=== PATIENT | male | born 1950 | race Caucasian/White ===

== ENCOUNTER → 2018-04-26 | Outpatient (CLI) | payer MEDICARE, MEDICAID ==
[~2018-04-26] MED LIST: AMIT100T2 PO; AMOX500C2 PO; AMT50T; BSP10T; BSP10T PO; HYDR-2854 PO; HYDR-757 PO; HYDR1TAB PO; IBP200T; ROPI1TAB PO; ROPI2TAB3 PO; SULF1TAB35 PO; SULF1TAB38 PO; TRAM-21 PO; TRAM50TA2 PO
--- NOTE | 2018-04-26 08:15 | Diagnostic Imaging Report ---
INDICATION: Right hip pain. COMPARISON: None. FINDINGS: Two views of the right hip demonstrate minimal degenerative changes. There is no fracture or dislocation. No osseous lesion. IMPRESSION: Minimal degenerative joint disease. Dictated by: Dictated on workstation # [id number]
== END ==
LOC: RAD 00:54
PROVIDERS: ATTEND Family Medicine
DX: M25.551 Pain in right hip (principal)
CPT/HCPCS: 73502

== ENCOUNTER → 2018-04-29 | Outpatient (CLI) | payer MEDICARE, MEDICAID ==
--- NOTE | 2018-04-29 08:53 | Diagnostic Imaging Report ---
PROCEDURE: MRI lumbar spine. TECHNIQUE: Multiplanar, multisequence MRI of the lumbar spine was performed without contrast. DATE: 04/29/2018. COMPARISON: MRI lumbar spine 07/06/2011. INDICATION: 67-year-old male, chronic low back pain. FINDINGS: The alignment of the lumbar spine is grossly unremarkable. There is no evidence of diffuse marrow infiltrating or replacing process. There is moderate disc height loss at L1-L2. There is severe disc height loss at L2-L3. There is moderate to severe disc height loss at L3-L4. There is severe disc height loss at L4-L5 and L5-S1. There are multilevel prominent endplate Modic degenerative related marrow changes. There are moderate to severe disc degenerative changes of the lower thoracic spine. There is no compression deformity. The visualized cord and conus medullaris is unremarkable and terminates at the L1-L2 level. There is congenital spinal stenosis relating to short pedicles. L1-L2: There is diffuse disc bulge. The facet joints and ligamentum flavum are unremarkable. There is moderate bilateral foraminal narrowing. There is prominence of the posterior epidural fat. There is severe spinal canal stenosis. L2-L3: There is mild diffuse disc bulge. The facet joints and ligamentum flavum are unremarkable. There is moderate right foraminal narrowing. There is mild spinal canal stenosis. L3-L4: There is diffuse disc bulge. There are mild bilateral facet degenerative changes with ligamentum flavum hypertrophy. There is moderate to severe bilateral foraminal narrowing. There is severe spinal canal stenosis. L4-L5: There is diffuse disc bulge. There are mild bilateral facet degenerative changes with ligamentum flavum hypertrophy. There is moderate to severe bilateral foraminal narrowing. There is severe spinal canal stenosis. L5-S1: There is diffuse disc bulge. There are moderate bilateral facet degenerative changes without prominent ligamentum flavum hypertrophy. There is severe bilateral foraminal narrowing. There is moderate spinal canal stenosis. IMPRESSION: 1. 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 2. Multilevel severe disc and facet degenerative changes of the lumbar spine with multilevel high-grade foraminal and spinal stenosis as detailed level by level above. Dictated by: Dictated on workstation # [id number]
== END ==
LOC: RAD 07:29
PROVIDERS: ATTEND Family Medicine
DX: M48.07 Spinal stenosis, lumbosacral region (principal); M51.27 Other intervertebral disc displacement, lumbosacral region; M51.37 Other intervertebral disc degeneration, lumbosacral region; M99.73 Connective tissue and disc stenosis of intervertebral foramina of lumbar region; M47.817 Spondylosis without myelopathy or radiculopathy, lumbosacral region
CPT/HCPCS: 72148

== ENCOUNTER → 2018-06-17 | Outpatient (CLI) | payer MEDICARE, MEDICAID ==
[~2018-06-17] MED LIST changes: +ACHD5005 PO; +CEPH500C PO; +Trimethoprim/Sulfamethoxazole PO
--- NOTE | 2018-06-17 16:52 | Diagnostic Imaging Report ---
PROCEDURE: US left lower extremity venous. TECHNIQUE: Multiple real-time grayscale images were obtained over the left lower extremity in various projections. Additional duplex Doppler and color Doppler images were also obtained. DATE: June 17, 2018. INDICATION: 67-year-old male, left foot pain and redness. COMPARISON: None. FINDINGS: The left common femoral vein, left superficial femoral vein, left popliteal vein are all compressible with normal flow and response to augmentation. The left posterior tibial and peroneal veins are patent. IMPRESSION: 1. Negative for left lower extremity deep venous thrombosis. Dictated by: Dictated on workstation # [id number]
== END ==
LOC: RAD 16:22
PROVIDERS: ATTEND Nurse Practitioner Family
DX: L03.116 Cellulitis of left lower limb (principal)

== ENCOUNTER 2018-06-20 03:07 | Inpatient (IN) | payer MEDICARE, MEDICAID ==
[~2018-06-20] VITALS: Ht 167.6 cm; Wt 78.2 kg
[~2018-06-20 03:07] MED LIST changes: -ACHD5005 PO; -CEPH500C PO; -Trimethoprim/Sulfamethoxazole PO
--- OUTSIDE RECORDS SUMMARY | 2018-06-20 03:13 | XMS REPORT ---
Author Author ANSELMO BEDOLLA Organization [employer] Address Unknown Phone Unavailable Care Team Providers Care Accounts Payable Professional Name Role Phone ANSELMO BEDOLLA CP Unavailable Allergies No Known Allergies Problems Problem Type Condition Code Onset Dates Condition Status Problem Esophageal reflux 530.81 Active Problem Allergic rhinitis, cause unspecified 477.9 Active Problem Anxiety state, unspecified 300.00 Active Problem Cellulitis and abscess of unspecified site 682.9 Active Problem Herpes zoster without mention of complication 053.9 Active Problem Hidradenitis 705.83 Active Problem Insomnia, unspecified 780.52 Active Problem Restless legs syndrome [RLS] 333.94 Active Medications Medication Code System Code Instructions Start Date End Date Status Dosage Amitriptyline HCl [facility] 67222527569 150MG TAKE ONE TABLET BY MOUTH AT BEDTIME; TAKE WITH 100 MG TABLET BusPIRone HCl [facility] 71957602608 30MG TAKE ONE TABLET BY MOUTH TWICE DAILY Results No Known Results Summary Purpose [employer] Submission
--- OUTSIDE RECORDS SUMMARY | 2018-06-20 03:14 | XMS REPORT ---
Author Author BLAINE BEGMU Organization [employer] Address Unknown Phone Unavailable Care Team Providers Care Public Health Epidemiologist Name Role Phone BLAINE BEGUM CP Unavailable Allergies, Adverse Reactions, Alerts Substance Reaction Event Type N.K.D.A. Info Not Available Non Drug Allergy Problems Problem Type Condition Code Onset Dates Condition Status Problem Esophageal reflux 530.81 Active Assessment Prepatellar bursitis of right knee M70.41 Active Problem Allergic rhinitis, cause unspecified 477.9 Active Problem Anxiety state, unspecified 300.00 Active Problem Cellulitis and abscess of unspecified site 682.9 Active Problem Herpes zoster without mention of complication 053.9 Active Problem Hidradenitis 705.83 Active Problem Insomnia, unspecified 780.52 Active Problem Restless legs syndrome [RLS] 333.94 Active Medications Medication Code System Code Instructions Start Date End Date Status Dosage BusPIRone HCl [facility] 95490287808 30MG 2 times a day 1 tablet Diclofenac Sodium [facility] [address]-60 1 % Transdermal 2 times a day June 02, 2016 Jun 12, 2016 as directed Amitriptyline HCl [facility] 98184451394 100MG Once a day 1 tablet Ropinirole HCl [facility] 52192657618 2MG Once a day 1 tablet Amitriptyline HCl [facility] 28904105271 150MG Once a day 1 tablet Procedures Procedure Coding System Code Date X-RAY EXAM OF KNEE, 3 CPT-4 81787 June 02, 2016 Office Visit, Est Pt., Level 3 CPT-4 55173 June 02, 2016 Vital Signs Date/Time: June 02, 2016 Cardiac Monitoring Heart Rate 100 bpm Weight 168 lbs Height 66 in Blood Pressure Diastolic 90 mmHg Blood Pressure Systolic 134 mmHg Results No Known Results Summary Purpose [employer] Submission
--- OUTSIDE RECORDS SUMMARY | 2018-06-20 03:14 | XMS REPORT ---
Author Author ANSELMO BEDOLLA [facility] Address [address] [place] [address] Care Team Providers Care Carpenter Assistant Name Role Phone ANSELMO BEDOLLA Unavailable PROBLEMS Type Condition ICD9-CM Code [id number] Code Onset Dates Condition Status SNOMED Code Problem Hidradenitis 705.83 Active 11161416 Problem Esophageal reflux 530.81 Active 625730927 Problem Cellulitis and abscess of unspecified site 682.9 Active 305205370 Problem Allergic rhinitis, cause unspecified 477.9 Active 24720796 Problem Restless legs syndrome [RLS] 333.94 Active 09766202 Problem Herpes zoster without mention of complication 053.9 Active 529748337 Problem Anxiety state, unspecified 300.00 Active 615352444 Problem Insomnia, unspecified 780.52 Active 035954536 ALLERGIES Unknown Allergies SOCIAL HISTORY No smoking Hx information available PLAN OF CARE VITAL SIGNS MEDICATIONS Unknown Medications RESULTS No Results PROCEDURES No Known procedures IMMUNIZATIONS No Known Immunizations
--- OUTSIDE RECORDS SUMMARY | 2018-06-20 03:14 | XMS REPORT ---
Author Author EDGARD CALLOWAY Organization [employer] Address Unknown Phone Unavailable Care Team Providers Care Reptile Farmer Name Role Phone EDGARD CALLOWAY CP Unavailable Allergies, Adverse Reactions, Alerts Substance Reaction Event Type N.K.D.A. Info Not Available Non Drug Allergy Problems Problem Type Condition Code Onset Dates Condition Status Problem Esophageal reflux 530.81 Active Assessment Abscess L02.91 Active Problem Allergic rhinitis, cause unspecified 477.9 Active Problem Anxiety state, unspecified 300.00 Active Problem Cellulitis and abscess of unspecified site 682.9 Active Problem Herpes zoster without mention of complication 053.9 Active Problem Hidradenitis 705.83 Active Problem Insomnia, unspecified 780.52 Active Problem Restless legs syndrome [RLS] 333.94 Active Medications Medication Code System Code Instructions Start Date End Date Status Dosage Amitriptyline HCl [facility] 52355966216 100MG TAKE ONE TABLET BY MOUTH AT BEDTIME; TAKE WITH 150 MG TABLET Ropinirole HCl [facility] 36700172060 2MG TAKE ONE TABLET BY MOUTH ONCE DAILY Requip [facility] [address]-08 2 mg Dec 28, 2014 take 1 tablet by Oral route 1 time per day BusPIRone HCl [facility] 49229239900 30MG TAKE ONE TABLET BY MOUTH TWICE DAILY Bactrim DS [facility] [address]-77 800-160 MG Orally Twice a day Nov 11, 2015 Nov 18, 2015 1 tablet Procedures Procedure Coding System Code Date [facility] VISIT ESTABLISHED PATIENT CPT-4 G0467 Nov 11, 2015 Office Visit, Est Pt., Level 1 CPT-4 65972 Nov 11, 2015 DRAINAGE OF SKIN ABSCESS CPT-4 03909 Nov 11, 2015 Vital Signs Date/Time: Nov 11, 2015 Temperature 98.0 F Weight 170.7 lbs Height 66 in BMI 27.55 Index Blood Pressure Diastolic 76 mmHg Blood Pressure Systolic 124 mmHg Cardiac Monitoring Heart Rate 104 bpm Results No Known Results Summary Purpose [employer] Submission
--- OUTSIDE RECORDS SUMMARY | 2018-06-20 03:14 | XMS REPORT ---
Author Author ANSELMO BEDOLLA Organization [employer] Address Unknown Phone Unavailable Care Team Providers Care Director Of Corporate Sales Name Role Phone ANSELMO BEDOLLA CP Unavailable [...] Restless legs syndrome [RLS] 333.94 Active Medications No Known Medications Results No Known Results Summary Purpose [employer] Submission
--- OUTSIDE RECORDS SUMMARY | 2018-06-20 03:14 | XMS REPORT ---
Author ANSELMO Kenney Organization [employer] Address Unknown Phone Unavailable Care Team Providers Care Narcotics And Vice Detective Name Role Phone ANSELMO BEDOLLA CP Unavailable [...]
--- OUTSIDE RECORDS SUMMARY | 2018-06-20 03:14 | XMS REPORT ---
Author Author ANSELMO BEDOLLA Organization [employer] Address Unknown Phone Unavailable Care Team Providers Care Counselor/Art Therapist Name Role Phone ANSELMO BEDOLLA CP Unavailable Allergies No Known Allergies Problems Problem Type Condition Code Onset Dates Condition Status Problem Esophageal reflux 530.81 Active Assessment Other bursal cyst of elbow, left M71.322 Active Problem Allergic rhinitis, cause unspecified 477.9 Active Problem Anxiety state, unspecified 300.00 Active Problem Cellulitis and abscess of unspecified site 682.9 Active Problem Herpes zoster without mention of complication 053.9 Active Problem Hidradenitis 705.83 Active Problem Insomnia, unspecified 780.52 Active Problem Restless legs syndrome [RLS] 333.94 Active Medications No Known Medications Procedures Procedure Coding System Code Date [facility] VISIT ESTABLISHED PATIENT CPT-4 G0467 Dec 30, 2015 Office Visit, Est Pt., Level 2 CPT-4 63945 Dec 30, 2015 ASPIRATE/INJ GANGLION CYST CPT-4 52469 Dec 30, 2015 LAB NOT BILLED BY [facility] CPT-4 NOBLL Dec 30, 2015 Results No Known Results Summary Purpose [employer] Submission
--- OUTSIDE RECORDS SUMMARY | 2018-06-20 03:14 | XMS REPORT ---
Author Author ANSELMO BEDOLLA Organization [employer] Address Unknown Phone Unavailable Care Team Providers Care Speech Language Pathologist Name Role Phone ANSELMO BEDOLLA CP Unavailable [...] Date End Date Status Dosage BusPIRone HCl [facility] 29886394042 30MG TAKE ONE TABLET BY MOUTH TWICE DAILY Amitriptyline HCl [facility] 06748774478 150MG TAKE ONE TABLET BY MOUTH AT BEDTIME; TAKE WITH 100 MG TABLET Amitriptyline HCl [place] 76225894317 100MG TAKE ONE TABLET BY MOUTH AT BEDTIME; TAKE WITH 150 MG TABLET Ropinirole HCl ND 53851182616 2MG TAKE ONE TABLET BY MOUTH ONCE DAILY Results No Known Results Summary Purpose [employer] Submission
--- OUTSIDE RECORDS SUMMARY | 2018-06-20 03:14 | XMS REPORT ---
Author Author ANSELMO BEDOLLA Organization [employer] Address Unknown Phone Unavailable Care Team Providers Care Gas Line Installer Name Role Phone ANSELMO BEDOLLA CP Unavailable [...] Date End Date Status Dosage Amitriptyline HCl [facility] 19645843033 100MG Once a day 1 tablet Amitriptyline HCl [facility] 80780092925 150MG Once a day 1 tablet BusPIRone HCl [facility] 90817641172 30MG 2 times a day 1 tablet Ropinirole HCl [facility] 99453355102 2MG Once a day 1 tablet Results No Known Results Summary Purpose [employer] Submission
--- OUTSIDE RECORDS SUMMARY | 2018-06-20 03:18 | XMS REPORT | Continuity of Care Document ---
Author Author [facility] Address Unknown Phone Unavailable Allergies Active Description Code Type Severity Reaction Onset Reported/Identified Relationship to Patient Clinical Status Yes No Known Drug Allergies [id number] Drug Allergy Unknown N/A 10/18/2010 Yes SWEET POTATO Food Allergy 04/30/2011 Yes SWEET POTATO Food Allergy N/ A N/A 04/30/2011 Medications There is no data. Problems Date Dx Coded Attending Type Code Diagnosis Diagnosed By 06/19/2008 SHIREEN GREGORY DO 300.02 GENERALIZED ANXIETY DISORDER 06/19/2008 SHIREEN GREGORY DO 307.47 SI DYSSOMNIA NOS 06/19/2008 AZALEA ARRIOLA DO 300.02 GENERALIZED ANXIETY DISORDER 06/19/2008 AZALEA ARRIOLA DO 307.47 SI DYSSOMNIA NOS 06/19/2008 300.02 GENERALIZED ANXIETY DISORDER 06/19/2008 307.47 SI DYSSOMNIA NOS 06/19/2008 300.02 GENERALIZED ANXIETY DISORDER 06/19/2008 307.47 SI DYSSOMNIA NOS 06/19/2008 AZALEA ARRIOLA DO 300.02 GENERALIZED ANXIETY DISORDER 06/19/2008 AZALEA ARRIOLA DO 307.47 SI DYSSOMNIA NOS 06/19/2008 ANSELMO BEDOLLA APRN 300.02 GENERALIZED ANXIETY DISORDER 06/19/2008 ANSELMO BEDOLLA APRN 307.47 SI DYSSOMNIA NOS 06/19/2008 AZALEA ARRIOLA DO 300.02 GENERALIZED ANXIETY DISORDER 06/19/2008 AZALEA ARRIOLA DO 307.47 SI DYSSOMNIA NOS 06/19/2008 ANSELMO BEDOLLA APRN 300.02 GENERALIZED ANXIETY DISORDER 06/19/2008 ANSELMO BEDOLLA APRN 307.47 SI DYSSOMNIA NOS 06/19/2008 ANSELMO BEDOLLA APRN 300.02 GENERALIZED ANXIETY DISORDER 06/19/2008 ANSELMO BEDOLLA APRN 307.47 SI DYSSOMNIA NOS 06/19/2008 ANSELMO BEDOLLA APRN 300.02 GENERALIZED ANXIETY DISORDER 06/19/2008 ANSELMO BEDOLLA APRN 307.47 SI DYSSOMNIA NOS 06/19/2008 BILLY BUITRAGO MD 300.02 GENERALIZED ANXIETY DISORDER 06/19/2008 BILLY BUITRAGO MD 307.47 SI DYSSOMNIA NOS 06/19/2008 ANSELMO BEDOLLA APRN 300.02 GENERALIZED ANXIETY DISORDER 06/19/2008 ANSELMO BEDOLLA APRN 307.47 SI DYSSOMNIA NOS 06/19/2008 TYLER PICHARDO APRN S 300.02 GENERALIZED ANXIETY DISORDER 06/19/2008 TYLER PICHARDO APRN S 307.47 SI DYSSOMNIA NOS 06/19/2008 ARRIOLA DO AZALEA K 300.02 GENERALIZED ANXIETY DISORDER 06/19/2008 ARRIOLA DO, AZALEA K 307.47 SI DYSSOMNIA NOS 06/19/2008 ARRIOLA DO, AZALEA K 300.02 GENERALIZED ANXIETY DISORDER 06/19/2008 ARRIOLA DO, AZALEA K 307.47 SI DYSSOMNIA NOS 06/19/2008 ARRIOLA DO AZALEA K 300.02 GENERALIZED ANXIETY DISORDER 06/19/2008 ARRIOLA DO, AZALEA K 307.47 SI DYSSOMNIA NOS 06/19/2008 BREEZY OAKES APRN R 300.02 GENERALIZED ANXIETY DISORDER 06/19/2008 SANDRA OAKES APRNRICIA R 307.47 SI DYSSOMNIA NOS 06/19/2008 ANSELMO BEDOLLA APRN 300.02 GENERALIZED ANXIETY DISORDER 06/19/2008 ANSELMO BEDOLLA APRN 307.47 SI DYSSOMNIA NOS 06/19/2008 ANSELMO BEDOLLA APRN 300.02 GENERALIZED ANXIETY DISORDER 06/19/2008 ANSELMO BEDOLLA APRN 307.47 SI DYSSOMNIA NOS 07/17/2008 SHIREEN GREGORY DO 873.8 WOUND OPEN HEAD/NECK 07/17/2008 EDITH ARRIOLA DOA K 873.8 WOUND OPEN HEAD/NECK 07/17/2008 873.8 WOUND OPEN HEAD/NECK 07/17/2008 873.8 WOUND OPEN HEAD/NECK 07/17/2008 AZALEA ARRIOLA DO K 873.8 WOUND OPEN HEAD/NECK 07/17/2008 ANSELMO BEDOLLA APRN 873.8 WOUND OPEN HEAD/NECK 07/17/2008 AZALEA ARRIOLA DO K 873.8 WOUND OPEN HEAD/NECK 07/17/2008 ANSELMO BEDOLLA APRN T 873.8 WOUND OPEN HEAD/NECK 07/17/2008 ANSELMO BEDOLLA APRN T 873.8 WOUND OPEN HEAD/NECK 07/17/2008 ANSELMO BEDOLLA APRN T 873.8 WOUND OPEN HEAD/NECK 07/17/2008 BILLY BUITRAGO MD 873.8 WOUND OPEN HEAD/NECK 07/17/2008 ANSELMO BEDOLLA APRN T 873.8 WOUND OPEN HEAD/NECK 07/17/2008 TYLER PICHARDO APRN S 873.8 WOUND OPEN HEAD/NECK 07/17/2008 ARRIOLA DO, AZALEA K 873.8 WOUND OPEN HEAD/NECK 07/17/2008 ARRIOLA DO, AZALEA K 873.8 WOUND OPEN HEAD/NECK 07/17/2008 ARRIOLA DO, AZALEA K 873.8 WOUND OPEN HEAD/NECK 07/17/2008 BREEZY OAKES APRN 873.8 WOUND OPEN HEAD/NECK 07/17/2008 ANSELMO BEDOLLA APRN T 873.8 WOUND OPEN HEAD/NECK 07/17/2008 ANSELMO BEDOLLA APRN T 873.8 WOUND OPEN HEAD/NECK 08/20/2008 SHIREEN GREGORY DO 303.90 SA ALCOHOL DEPENDENCE 08/20/2008 ARRIOLA DO, AZALEA K 303.90 SA ALCOHOL DEPENDENCE 08/20/2008 303.90 SA ALCOHOL DEPENDENCE 08/20/2008 303.90 SA ALCOHOL DEPENDENCE 08/20/2008 ARRIOLA DO, AZALEA K 303.90 SA ALCOHOL DEPENDENCE 08/20/2008 ANSELMO BEDOLLA APRN T 303.90 SA ALCOHOL DEPENDENCE 08/20/2008 ARRIOLA DO AZALEA K 303.90 SA ALCOHOL DEPENDENCE 08/20/2008 ANSELMO BEDOLLA APRN 303.90 SA ALCOHOL DEPENDENCE 08/20/2008 ANSELMO BEDOLLA APRN 303.90 SA ALCOHOL DEPENDENCE 08/20/2008 ANSELMO BEDOLLA APRN 303.90 SA ALCOHOL DEPENDENCE 08/20/2008 BILLY BUITRAGO MD 303.90 SA ALCOHOL DEPENDENCE 08/20/2008 ANSELMO BEDOLLA APRN 303.90 SA ALCOHOL DEPENDENCE 08/20/2008 TYLER PICHARDO APRN S 303.90 SA ALCOHOL DEPENDENCE 08/20/2008 ARRIOLA DO, AZALEA K 303.90 SA ALCOHOL DEPENDENCE 08/20/2008 ARRIOLA DO, AZALEA K 303.90 SA ALCOHOL DEPENDENCE 08/20/2008 ARRIOLA DO, AZALEA K 303.90 SA ALCOHOL DEPENDENCE 08/20/2008 VIOLETTE SCHAEFFER BREEZY R 303.90 SA ALCOHOL DEPENDENCE 08/20/2008 ANSELMO BEDOLLA APRN 303.90 SA ALCOHOL DEPENDENCE 08/20/2008 ANSELMO BEDOLLA APRN 303.90 SA ALCOHOL DEPENDENCE 11/26/2008 SHIREEN GREGORY DO 719.47 PAIN IN JOINT INVOLVING ANKLE AND FOOT 11/26/2008 SHIREEN GREGORY DO F 724.3 SCIATICA 11/26/2008 FLAKO DOEDITHA K 719.47 PAIN IN JOINT INVOLVING ANKLE AND FOOT 11/26/2008 ARRIOLA DO AZALEA K 724.3 SCIATICA 11/26/2008 719.47 PAIN IN JOINT INVOLVING ANKLE AND FOOT 11/26/2008 724.3 SCIATICA 11/26/2008 719.47 PAIN IN JOINT INVOLVING ANKLE AND FOOT 11/26/2008 724.3 SCIATICA 11/26/2008 FLAKO DOEDITHA K 719.47 PAIN IN JOINT INVOLVING ANKLE AND FOOT 11/26/2008 EDITH ARRIOLA DOA K 724.3 SCIATICA 11/26/2008 ANSELMO BEDOLLA APRN 719.47 PAIN IN JOINT INVOLVING ANKLE AND FOOT 11/26/2008 ANSELMO BEDOLLA APRN 724.3 SCIATICA 11/26/2008 EDITH ARRIOLA DOA K 719.47 PAIN IN JOINT INVOLVING ANKLE AND FOOT 11/26/2008 EDITH ARRIOLA DOA K 724.3 SCIATICA 11/26/2008 ANSELMO BEDOLLA APRN 719.47 PAIN IN JOINT INVOLVING ANKLE AND FOOT 11/26/2008 ANSELMO BEDOLLA APRN 724.3 SCIATICA 11/26/2008 ANSELMO BEDOLLA APRN 719.47 PAIN IN JOINT INVOLVING ANKLE AND FOOT 11/26/2008 ANSELMO BEDOLLA APRN 724.3 SCIATICA 11/26/2008 ANSELMO BEDOLLA APRN 719.47 PAIN IN JOINT INVOLVING ANKLE AND FOOT 11/26/2008 ANSELMO BEDOLLA APRN 724.3 SCIATICA 11/26/2008 BILLY BUITRAGO MD 719.47 PAIN IN JOINT INVOLVING ANKLE AND FOOT 11/26/2008 BILLY BUITRAGO MD 724.3 SCIATICA 11/26/2008 ANSELMO BEDOLLA APRN 719.47 PAIN IN JOINT INVOLVING ANKLE AND FOOT 11/26/2008 ANSELMO BEDOLLA APRN 724.3 SCIATICA 11/26/2008 TYLER PICHARDO APRN S 719.47 PAIN IN JOINT INVOLVING ANKLE AND FOOT 11/26/2008 TYLER PICHARDO APRN S 724.3 SCIATICA 11/26/2008 ARRIOLA AZALEA DENNY K 719.47 PAIN IN JOINT INVOLVING ANKLE AND FOOT 11/26/2008 ARRIOLA DOAZALEA K 724.3 SCIATICA 11/26/2008 ARRIOLA DOEDITHA K 719.47 PAIN IN JOINT INVOLVING ANKLE AND FOOT 11/26/2008 ARRIOLA DOEDITHA K 724.3 SCIATICA 11/26/2008 ARRIOLA DOEDITHA K 719.47 PAIN IN JOINT INVOLVING ANKLE AND FOOT 11/26/2008 AZALEA ARRIOLA DO K 724.3 SCIATICA 11/26/2008 BREEZY OAKES APRN R 719.47 PAIN IN JOINT INVOLVING ANKLE AND FOOT 11/26/2008 BREEZY OAKES APRN R 724.3 SCIATICA 11/26/2008 ANSELMO BEDOLLA APRN 719.47 PAIN IN JOINT INVOLVING ANKLE AND FOOT 11/26/2008 ANSELMO BEDOLLA APRN 724.3 SCIATICA 11/26/2008 ANSELMO BEDOLLA APRN 719.47 PAIN IN JOINT INVOLVING ANKLE AND FOOT 11/26/2008 ANSELMO BEDOLLA APRN 724.3 SCIATICA 12/11/2008 SHIREEN GREGORY DO 316 PF PSYCHIC FACTORS MED COND 12/11/2008 SHIREEN GREGORY DO 724.2 LUMBAGO 12/11/2008 SHIREEN GREGORY DO 729.2 NEURALGIA NEURITIS AND RADICULITIS UNSPECIFIED 12/11/2008 AZALEA ARRIOLA DO K 316 PF PSYCHIC FACTORS MED COND 12/11/2008 AZALEA ARRIOLA DO K 724.2 LUMBAGO 12/11/2008 AZALEA ARRIOLA DO K 729.2 NEURALGIA NEURITIS AND RADICULITIS UNSPECIFIED 12/11/2008 316 PF PSYCHIC FACTORS MED COND 12/11/2008 724.2 LUMBAGO 12/11/2008 729.2 NEURALGIA NEURITIS AND RADICULITIS UNSPECIFIED 12/11/2008 316 PF PSYCHIC FACTORS MED COND 12/11/2008 724.2 LUMBAGO 12/11/2008 729.2 NEURALGIA NEURITIS AND RADICULITIS UNSPECIFIED 12/11/2008 ARRIOLA DO, AZALEA K 316 PF PSYCHIC FACTORS MED COND 12/11/2008 FLAKO DENNY AZALEA K 724.2 LUMBAGO 12/11/2008 ARRIOLA DO, AZALEA K 729.2 NEURALGIA NEURITIS AND RADICULITIS UNSPECIFIED 12/11/2008 ANSELMO BEDOLLA APRN 316 PF PSYCHIC FACTORS MED COND 12/11/2008 ANSELMO BEDOLLA APRN 724.2 LUMBAGO 12/11/2008 ANSELMO BEDOLLA APRN 729.2 NEURALGIA NEURITIS AND RADICULITIS UNSPECIFIED 12/11/2008 ARRIOLA DO AZALEA K 316 PF PSYCHIC FACTORS MED COND 12/11/2008 FLAKO DENNYEDITHA K 724.2 LUMBAGO 12/11/2008 FLAKO DENNYEDITHA K 729.2 NEURALGIA NEURITIS AND RADICULITIS UNSPECIFIED 12/11/2008 ANSELMO BEDOLLA APRN 316 PF PSYCHIC FACTORS MED COND 12/11/2008 ANSELMO BEDOLLA APRN 724.2 LUMBAGO 12/11/2008 ANSELMO BEDOLLA APRN 729.2 NEURALGIA NEURITIS AND RADICULITIS UNSPECIFIED 12/11/2008 ANSELMO BEDOLLA APRN 316 PF PSYCHIC FACTORS MED COND 12/11/2008 ANSELMO BEDOLLA APRN 724.2 LUMBAGO 12/11/2008 ANSELMO BEDOLLA APRN 729.2 NEURALGIA NEURITIS AND RADICULITIS UNSPECIFIED 12/11/2008 ANSELMO BEDOLLA APRN 316 PF PSYCHIC FACTORS MED COND 12/11/2008 ANSELMO BEDOLLA APRN 724.2 LUMBAGO 12/11/2008 ANSELMO BEDOLLA APRN 729.2 NEURALGIA NEURITIS AND RADICULITIS UNSPECIFIED 12/11/2008 BILLY BUITRAGO MD 316 PF PSYCHIC FACTORS MED COND 12/11/2008 BILLY BUITRAGO MD 724.2 LUMBAGO 12/11/2008 BILLY BUITRAGO MD 729.2 NEURALGIA NEURITIS AND RADICULITIS UNSPECIFIED 12/11/2008 ANSELMO BEDOLLA APRN 316 PF PSYCHIC FACTORS MED COND 12/11/2008 ANSELMO BEDOLLA APRN 724.2 LUMBAGO 12/11/2008 ANSELMO BEDOLLA APRN 729.2 NEURALGIA NEURITIS AND RADICULITIS UNSPECIFIED 12/11/2008 TYLER PICHARDO APRN S 316 PF PSYCHIC FACTORS MED COND 12/11/2008 TYLER PICHARDO APRN S 724.2 LUMBAGO 12/11/2008 TYLER PICHARDO APRN S 729.2 NEURALGIA NEURITIS AND RADICULITIS UNSPECIFIED 12/11/2008 ARRIOLA DO AZALEA K 316 PF PSYCHIC FACTORS MED COND 12/11/2008 ARRIOLA DO, AZALEA K 724.2 LUMBAGO 12/11/2008 ARRIOLA DO, AZALEA K 729.2 NEURALGIA NEURITIS AND RADICULITIS UNSPECIFIED 12/11/2008 ARRIOLA DO AZALEA K 316 PF PSYCHIC FACTORS MED COND 12/11/2008 ARRIOLA DO AZALEA K 724.2 LUMBAGO 12/11/2008 ARRIOLA DO, AZALEA K 729.2 NEURALGIA NEURITIS AND RADICULITIS UNSPECIFIED 12/11/2008 FLAKO DENNY AZALEA K 316 PF PSYCHIC FACTORS MED COND 12/11/2008 ARRIOLA DO AZALEA K 724.2 LUMBAGO 12/11/2008 ARRIOLA DO, AZALEA K 729.2 NEURALGIA NEURITIS AND RADICULITIS UNSPECIFIED 12/11/2008 BREEZY OAKES APRN R 316 PF PSYCHIC FACTORS MED COND 12/11/2008 BREEZY OAKES APRN R 724.2 LUMBAGO 12/11/2008 BREEZY OAKES APRN R 729.2 NEURALGIA NEURITIS AND RADICULITIS UNSPECIFIED 12/11/2008 ANSELMO BEDOLLA APRN 316 PF PSYCHIC FACTORS MED COND 12/11/2008 ANSELMO BEDOLLA APRN 724.2 LUMBAGO 12/11/2008 ANSELMO BEDOLLA APRN 729.2 NEURALGIA NEURITIS AND RADICULITIS UNSPECIFIED 12/11/2008 ANSELMO BEDOLLA APRN 316 PF PSYCHIC FACTORS MED COND 12/11/2008 ANSELMO BEDOLLA APRN 724.2 LUMBAGO 12/11/2008 ANSELMO BEDOLLA APRN 729.2 NEURALGIA NEURITIS AND RADICULITIS UNSPECIFIED 12/28/2008 SHIREEN GREGORY DO 715.27 OSTEOARTHROSIS LOCALIZED SECONDARY INVOLVING ANKLE AND FOOT 12/28/2008 SHIREEN GREGORY DO 735.2 HALLUX RIGIDUS 12/28/2008 AZALEA ARRIOLA DO K 715.27 OSTEOARTHROSIS LOCALIZED SECONDARY INVOLVING ANKLE AND FOOT 12/28/2008 ARRIOLA EDITH DENNYA K 735.2 HALLUX RIGIDUS 12/28/2008 715.27 OSTEOARTHROSIS LOCALIZED SECONDARY INVOLVING ANKLE AND FOOT 12/28/2008 735.2 HALLUX RIGIDUS 12/28/2008 715.27 OSTEOARTHROSIS LOCALIZED SECONDARY INVOLVING ANKLE AND FOOT 12/28/2008 735.2 HALLUX RIGIDUS 12/28/2008 AZALEA ARRIOLA DO K 715.27 OSTEOARTHROSIS LOCALIZED SECONDARY INVOLVING ANKLE AND FOOT 12/28/2008 EDITH ARRIOLA DOA K 735.2 HALLUX RIGIDUS 12/28/2008 ANSELMO BEDOLLA APRN 715.27 OSTEOARTHROSIS LOCALIZED SECONDARY INVOLVING ANKLE AND FOOT 12/28/2008 ANSELMO BEDOLLA APRN 735.2 HALLUX RIGIDUS 12/28/2008 AZALEA ARRIOLA DO 715.27 OSTEOARTHROSIS LOCALIZED SECONDARY INVOLVING ANKLE AND FOOT 12/28/2008 AZALEA ARRIOLA DO 735.2 HALLUX RIGIDUS 12/28/2008 ANSELMO BEDOLLA APRN 715.27 OSTEOARTHROSIS LOCALIZED SECONDARY INVOLVING ANKLE AND FOOT 12/28/2008 ANSELMO BEDOLLA APRN 735.2 HALLUX RIGIDUS 12/28/2008 ANSELMO BEDOLLA APRN 715.27 OSTEOARTHROSIS LOCALIZED SECONDARY INVOLVING ANKLE AND FOOT 12/28/2008 ANSELMO BEDOLLA APRN 735.2 HALLUX RIGIDUS 12/28/2008 ANSELMO BEDOLLA APRN 715.27 OSTEOARTHROSIS LOCALIZED SECONDARY INVOLVING ANKLE AND FOOT 12/28/2008 ANSELMO BEDOLLA APRN 735.2 HALLUX RIGIDUS 12/28/2008 BILLY BUITRAGO MD 715.27 OSTEOARTHROSIS LOCALIZED SECONDARY INVOLVING ANKLE AND FOOT 12/28/2008 BILLY BUITRAGO MD 735.2 HALLUX RIGIDUS 12/28/2008 ANSELMO BEDOLLA APRN 715.27 OSTEOARTHROSIS LOCALIZED SECONDARY INVOLVING ANKLE AND FOOT 12/28/2008 ANSELMO BEDOLLA APRN 735.2 HALLUX RIGIDUS 12/28/2008 TYLER PICHARDO APRN 715.27 OSTEOARTHROSIS LOCALIZED SECONDARY INVOLVING ANKLE AND FOOT 12/28/2008 TYLER PICHARDO APRN S 735.2 HALLUX RIGIDUS 12/28/2008 ARRIOLA DO AZALEA K 715.27 OSTEOARTHROSIS LOCALIZED SECONDARY INVOLVING ANKLE AND FOOT 12/28/2008 ARRIOLA DO, AZALEA K 735.2 HALLUX RIGIDUS 12/28/2008 ARRIOLA DO, AZALEA K 715.27 OSTEOARTHROSIS LOCALIZED SECONDARY INVOLVING ANKLE AND FOOT 12/28/2008 ARRIOLA DO, AZALEA K 735.2 HALLUX RIGIDUS 12/28/2008 ARRIOLA DO, AZALEA K 715.27 OSTEOARTHROSIS LOCALIZED SECONDARY INVOLVING ANKLE AND FOOT 12/28/2008 ARRIOLA DO, AZALEA K 735.2 HALLUX RIGIDUS 12/28/2008 BREEZY OAKES APRN R 715.27 OSTEOARTHROSIS LOCALIZED SECONDARY INVOLVING ANKLE AND FOOT 12/28/2008 BREEZY OAKES APRN R 735.2 HALLUX RIGIDUS 12/28/2008 ANSELMO BEDOLLA APRN 715.27 OSTEOARTHROSIS LOCALIZED SECONDARY INVOLVING ANKLE AND FOOT 12/28/2008 ANSELMO BEDOLLA APRN 735.2 HALLUX RIGIDUS 12/28/2008 ANSELMO BEDOLLA APRN 715.27 OSTEOARTHROSIS LOCALIZED SECONDARY INVOLVING ANKLE AND FOOT 12/28/2008 ANSELMO BEDOLLA APRN 735.2 HALLUX RIGIDUS 06/20/2009 SHIREEN GREGORY DO 319 UNSPECIFIED MENTAL RETARDATION 06/20/2009 AZALEA ARRIOLA DO K 319 UNSPECIFIED MENTAL RETARDATION 06/20/2009 319 UNSPECIFIED MENTAL RETARDATION 06/20/2009 319 UNSPECIFIED MENTAL RETARDATION 06/20/2009 AZALEA ARRIOLA DO K 319 UNSPECIFIED MENTAL RETARDATION 06/20/2009 ANSELMO BEDOLLA APRN 319 UNSPECIFIED MENTAL RETARDATION 06/20/2009 AZALEA ARRIOLA DO K 319 UNSPECIFIED MENTAL RETARDATION 06/20/2009 ANSELMO BEDOLLA APRN 319 UNSPECIFIED MENTAL RETARDATION 06/20/2009 ANSELMO BEDOLLA APRN 319 UNSPECIFIED MENTAL RETARDATION 06/20/2009 ANSELMO BEDOLLA APRN 319 UNSPECIFIED MENTAL RETARDATION 06/20/2009 IFTIKHAR HERNDON, BILLY Hoang 319 UNSPECIFIED MENTAL RETARDATION 06/20/2009 ANSELMO BEDOLLA APRN 319 UNSPECIFIED MENTAL RETARDATION 06/20/2009 TYLER PICHARDO APRN 319 UNSPECIFIED MENTAL RETARDATION 06/20/2009 EDITH ARRIOLA DOA K 319 UNSPECIFIED MENTAL RETARDATION 06/20/2009 AZALEA ARRIOLA DO 319 UNSPECIFIED MENTAL RETARDATION 06/20/2009 AZALEA ARRIOLA DO K 319 UNSPECIFIED MENTAL RETARDATION 06/20/2009 OAKES BREEZY SCHAEFFER 319 UNSPECIFIED MENTAL RETARDATION 06/20/2009 ANSELMO BEDOLLA APRN 319 UNSPECIFIED MENTAL RETARDATION 06/20/2009 ANSELMO BEDOLLA APRN 319 UNSPECIFIED MENTAL RETARDATION 10/18/2010 Ot 521.00 10/18/2010 Ot 525.9 06/30/2011 SHIREEN GREGORY DO 381.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 TUBE 06/30/2011 SHIREEN GREGORY DO 715.90 OSTEOARTHROSIS UNSPECIFIED WHETHER GENERALIZED OR LOCALIZED INVOLVING UNSPECIFIED SITE 06/30/2011 SHIREEN GREGORY DO 724.4 THORACIC OR LUMBOSACRAL NEURITIS OR RADICULITIS UNSPECIFIED 06/30/2011 SHIREEN GREGORY DO 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 06/30/2011 AZALEA ARRIOLA DO 381.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 TUBE 06/30/2011 AZALEA ARRIOLA DO 715.90 OSTEOARTHROSIS UNSPECIFIED WHETHER GENERALIZED OR LOCALIZED INVOLVING UNSPECIFIED SITE 06/30/2011 AZALEA ARRIOLA DO 724.4 THORACIC OR LUMBOSACRAL NEURITIS OR RADICULITIS UNSPECIFIED 06/30/2011 AZALEA ARRIOLA DO 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 06/30/2011 381.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 TUBE 06/30/2011 715.90 OSTEOARTHROSIS UNSPECIFIED WHETHER GENERALIZED OR LOCALIZED INVOLVING UNSPECIFIED SITE 06/30/2011 724.4 THORACIC OR LUMBOSACRAL NEURITIS OR RADICULITIS UNSPECIFIED 06/30/2011 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 06/30/2011 381.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 TUBE 06/30/2011 715.90 OSTEOARTHROSIS UNSPECIFIED WHETHER GENERALIZED OR LOCALIZED INVOLVING UNSPECIFIED SITE 06/30/2011 724.4 THORACIC OR LUMBOSACRAL NEURITIS OR RADICULITIS UNSPECIFIED 06/30/2011 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 06/30/2011 AZALEA ARRIOLA DO K 381.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 TUBE 06/30/2011 AZALEA ARRIOLA DO 715.90 OSTEOARTHROSIS UNSPECIFIED WHETHER GENERALIZED OR LOCALIZED INVOLVING UNSPECIFIED SITE 06/30/2011 ARRIOLA DO AZALEA K 724.4 THORACIC OR LUMBOSACRAL NEURITIS OR RADICULITIS UNSPECIFIED 06/30/2011 ARRIOLA DO AZALEA K 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 06/30/2011 ANSELMO BEDOLLA APRN 381.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 TUBE 06/30/2011 ANSELMO BEDOLLA APRN 715.90 OSTEOARTHROSIS UNSPECIFIED WHETHER GENERALIZED OR LOCALIZED INVOLVING UNSPECIFIED SITE 06/30/2011 ANSELMO BEDOLLA APRN 724.4 THORACIC OR LUMBOSACRAL NEURITIS OR RADICULITIS UNSPECIFIED 06/30/2011 ANSELMO BEDOLLA APRN 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 06/30/2011 FLAKO DO AZALEA K 381.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 TUBE 06/30/2011 ARRIOLA DO AZALEA K 715.90 OSTEOARTHROSIS UNSPECIFIED WHETHER GENERALIZED OR LOCALIZED INVOLVING UNSPECIFIED SITE 06/30/2011 ARRIOLA DO AZALEA K 724.4 THORACIC OR LUMBOSACRAL NEURITIS OR RADICULITIS UNSPECIFIED 06/30/2011 FLAKO DO AZALEA K 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 06/30/2011 ANSELMO BEDOLLA APRN 381.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 TUBE 06/30/2011 ANSELMO BEDOLLA APRN 715.90 OSTEOARTHROSIS UNSPECIFIED WHETHER GENERALIZED OR LOCALIZED INVOLVING UNSPECIFIED SITE 06/30/2011 ANSELMO BEDOLLA APRN 724.4 THORACIC OR LUMBOSACRAL NEURITIS OR RADICULITIS UNSPECIFIED 06/30/2011 ANSELMO BEDOLLA APRN 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 06/30/2011 ANSELMO BEDOLLA APRN 381.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 TUBE 06/30/2011 ANSELMO BEDOLLA APRN 715.90 OSTEOARTHROSIS UNSPECIFIED WHETHER GENERALIZED OR LOCALIZED INVOLVING UNSPECIFIED SITE 06/30/2011 ANSELMO BEDOLLA APRN 724.4 THORACIC OR LUMBOSACRAL NEURITIS OR RADICULITIS UNSPECIFIED 06/30/2011 ANSELMO BEDOLLA APRN 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 06/30/2011 ANSELMO BEDOLLA APRN 381.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 TUBE 06/30/2011 ANSELMO BEDOLLA APRN 715.90 OSTEOARTHROSIS UNSPECIFIED WHETHER GENERALIZED OR LOCALIZED INVOLVING UNSPECIFIED SITE 06/30/2011 ANSELMO BEDOLLA APRN 724.4 THORACIC OR LUMBOSACRAL NEURITIS OR RADICULITIS UNSPECIFIED 06/30/2011 ANSELMO BEDOLLA APRN 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 06/30/2011 BILLY BUITRAGO MD 381.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 TUBE 06/30/2011 BILLY BUITRAGO MD 715.90 OSTEOARTHROSIS UNSPECIFIED WHETHER GENERALIZED OR LOCALIZED INVOLVING UNSPECIFIED SITE 06/30/2011 BILLY BUITRAGO MD 724.4 THORACIC OR LUMBOSACRAL NEURITIS OR RADICULITIS UNSPECIFIED 06/30/2011 BILLY BUITRAGO MD 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 06/30/2011 ANSELMO BEDOLLA APRN 381.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 TUBE 06/30/2011 ANSELMO BEDOLLA APRN 715.90 OSTEOARTHROSIS UNSPECIFIED WHETHER GENERALIZED OR LOCALIZED INVOLVING UNSPECIFIED SITE 06/30/2011 ANSELMO BEDOLLA APRN 724.4 THORACIC OR LUMBOSACRAL NEURITIS OR RADICULITIS UNSPECIFIED 06/30/2011 ANSELMO BEDOLLA APRN 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 06/30/2011 TYLER PICHARDO APRN S 381.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 TUBE 06/30/2011 OMER PICHARDO APRNA S 715.90 OSTEOARTHROSIS UNSPECIFIED WHETHER GENERALIZED OR LOCALIZED INVOLVING UNSPECIFIED SITE 06/30/2011 TYLER PICHARDO APRN S 724.4 THORACIC OR LUMBOSACRAL NEURITIS OR RADICULITIS UNSPECIFIED 06/30/2011 OMER PICHARDO APRNA S 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 06/30/2011 FLAKO DO AZALEA K 381.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 TUBE 06/30/2011 ARRIOLA DO, AZALEA K 715.90 OSTEOARTHROSIS UNSPECIFIED WHETHER GENERALIZED OR LOCALIZED INVOLVING UNSPECIFIED SITE 06/30/2011 ARRIOLA DO, AZALEA K 724.4 THORACIC OR LUMBOSACRAL NEURITIS OR RADICULITIS UNSPECIFIED 06/30/2011 ARRIOLA DO, AZALEA K 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 06/30/2011 ARRIOLA DO, AZALEA K 381.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 TUBE 06/30/2011 ARRIOLA DO, AZALEA K 715.90 OSTEOARTHROSIS UNSPECIFIED WHETHER GENERALIZED OR LOCALIZED INVOLVING UNSPECIFIED SITE 06/30/2011 ARRIOLA DO AZALEA K 724.4 THORACIC OR LUMBOSACRAL NEURITIS OR RADICULITIS UNSPECIFIED 06/30/2011 EDITH ARRIOLA DOA K 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 06/30/2011 ARRIOLA DO AZALEA K 381.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 TUBE 06/30/2011 ARRIOLA DO AZALEA K 715.90 OSTEOARTHROSIS UNSPECIFIED WHETHER GENERALIZED OR LOCALIZED INVOLVING UNSPECIFIED SITE 06/30/2011 FLAKO DENNY AZALEA K 724.4 THORACIC OR LUMBOSACRAL NEURITIS OR RADICULITIS UNSPECIFIED 06/30/2011 FLAKO DENNY AZALEA K 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 06/30/2011 BREEZY OAKES APRN 381.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 TUBE 06/30/2011 BREEZY OAKES APRN 715.90 OSTEOARTHROSIS UNSPECIFIED WHETHER GENERALIZED OR LOCALIZED INVOLVING UNSPECIFIED SITE 06/30/2011 BREEZY OAKES APRN 724.4 THORACIC OR LUMBOSACRAL NEURITIS OR RADICULITIS UNSPECIFIED 06/30/2011 BREEZY OAKES APRN R 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 06/30/2011 ANSELMO BEDOLLA APRN 381.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 TUBE 06/30/2011 ANSELMO BEDOLLA APRN 715.90 OSTEOARTHROSIS UNSPECIFIED WHETHER GENERALIZED OR LOCALIZED INVOLVING UNSPECIFIED SITE 06/30/2011 ANSELMO BEDOLLA APRN 724.4 THORACIC OR LUMBOSACRAL NEURITIS OR RADICULITIS UNSPECIFIED 06/30/2011 ANSELMO BEDOLLA APRN 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 06/30/2011 ANSELMO BEDOLLA APRN 381.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 TUBE 06/30/2011 ANSELMO BEDOLLA APRN 715.90 OSTEOARTHROSIS UNSPECIFIED WHETHER GENERALIZED OR LOCALIZED INVOLVING UNSPECIFIED SITE 06/30/2011 ANSELMO BEDOLLA APRN 724.4 THORACIC OR LUMBOSACRAL NEURITIS OR RADICULITIS UNSPECIFIED 06/30/2011 ANSELMO BEDOLLA APRN 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 01/04/2012 SHIREEN GREGORY DO 473.9 UNSPECIFIED SINUSITIS (CHRONIC) 01/04/2012 SHIREEN GREGORY DO 530.81 ESOPHAGEAL REFLUX 01/04/2012 ARRIOLA DO AZALEA K 473.9 UNSPECIFIED SINUSITIS (CHRONIC) 01/04/2012 ARRIOLA DO, AZALEA K 530.81 ESOPHAGEAL REFLUX 01/04/2012 473.9 UNSPECIFIED SINUSITIS (CHRONIC) 01/04/2012 530.81 ESOPHAGEAL REFLUX 01/04/2012 473.9 UNSPECIFIED SINUSITIS (CHRONIC) 01/04/2012 530.81 ESOPHAGEAL REFLUX 01/04/2012 ARRIOLA DO, AZALEA K 473.9 UNSPECIFIED SINUSITIS (CHRONIC) 01/04/2012 ARRIOLA DO, AZALEA K 530.81 ESOPHAGEAL REFLUX 01/04/2012 ANSELMO BEDOLLA APRN T 473.9 UNSPECIFIED SINUSITIS (CHRONIC) 01/04/2012 ANSEMLO BEDOLLA APRN T 530.81 ESOPHAGEAL REFLUX 01/04/2012 FLAKO DO AZALEA K 473.9 UNSPECIFIED SINUSITIS (CHRONIC) 01/04/2012 FLAKO DO AZALEA K 530.81 ESOPHAGEAL REFLUX 01/04/2012 ANSELMO BEDOLLA APRN T 473.9 UNSPECIFIED SINUSITIS (CHRONIC) 01/04/2012 ANSELMO BEDOLLA APRN T 530.81 ESOPHAGEAL REFLUX 01/04/2012 ANSELMO BEDOLLA APRN T 473.9 UNSPECIFIED SINUSITIS (CHRONIC) 01/04/2012 CHIOMA SCHAEFFER ANSELMO T 530.81 ESOPHAGEAL REFLUX 01/04/2012 ANSELMO BEDOLLA APRN T 473.9 UNSPECIFIED SINUSITIS (CHRONIC) 01/04/2012 CHIOMA SCHAEFFER ANSELMO T 530.81 ESOPHAGEAL REFLUX 01/04/2012 BILLY BUITRAGO MD 473.9 UNSPECIFIED SINUSITIS (CHRONIC) 01/04/2012 BILLY BUITRAGO MD 530.81 ESOPHAGEAL REFLUX 01/04/2012 ANSELMO BEDOLLA APRN T 473.9 UNSPECIFIED SINUSITIS (CHRONIC) 01/04/2012 ANSELMO BEDOLLA APRN T 530.81 ESOPHAGEAL REFLUX 01/04/2012 TYLER PICHARDO APRN S 473.9 UNSPECIFIED SINUSITIS (CHRONIC) 01/04/2012 KYLEE SCHAEFFER TYLER S 530.81 ESOPHAGEAL REFLUX 01/04/2012 FLAKO DO AZALEA K 473.9 UNSPECIFIED SINUSITIS (CHRONIC) 01/04/2012 ARRIOLA DO AZALEA K 530.81 ESOPHAGEAL REFLUX 01/04/2012 ARRIOLA DO AZALEA K 473.9 UNSPECIFIED SINUSITIS (CHRONIC) 01/04/2012 ARRIOLA DO, AZALEA K 530.81 ESOPHAGEAL REFLUX 01/04/2012 ARRIOLA DO, AZALEA K 473.9 UNSPECIFIED SINUSITIS (CHRONIC) 01/04/2012 ARRIOLA DO, AZALEA K 530.81 ESOPHAGEAL REFLUX 01/04/2012 BREEZY OAKES APRN R 473.9 UNSPECIFIED SINUSITIS (CHRONIC) 01/04/2012 BREEZY OAKES APRN R 530.81 ESOPHAGEAL REFLUX 01/04/2012 ANSELMO BEDOLLA APRN T 473.9 UNSPECIFIED SINUSITIS (CHRONIC) 01/04/2012 ANSELMO BEDOLLA APRN T 530.81 ESOPHAGEAL REFLUX 01/04/2012 ANSELMO BEDOLLA APRN 473.9 UNSPECIFIED SINUSITIS (CHRONIC) 01/04/2012 ANSELMO BEDOLLA APRN T 530.81 ESOPHAGEAL REFLUX 01/19/2012 SHIREEN GREGORY DO V58.69 MEDICATION HIGH RISK 01/19/2012 ARRIOLA DO, AZALEA K V58.69 MEDICATION HIGH RISK 01/19/2012 V58.69 MEDICATION HIGH RISK 01/19/2012 V58.69 MEDICATION HIGH RISK 01/19/2012 ARRIOLA DO, AZALEA K V58.69 MEDICATION HIGH RISK 01/19/2012 ANSELMO BEDOLLA APRN T V58.69 MEDICATION HIGH RISK 01/19/2012 ARRIOLA DO, AZALEA K V58.69 MEDICATION HIGH RISK 01/19/2012 ANSELMO BEDOLLA APRN V58.69 MEDICATION HIGH RISK 01/19/2012 ANSELMO BEDOLLA APRN V58.69 MEDICATION HIGH RISK 01/19/2012 ANSELMO BEDOLLA APRN V58.69 MEDICATION HIGH RISK 01/19/2012 BILLY BUITRAGO MD V58.69 MEDICATION HIGH RISK 01/19/2012 ANSELMO BEDOLLA APRN T V58.69 MEDICATION HIGH RISK 01/19/2012 TYLER PICHARDO APRN V58.69 MEDICATION HIGH RISK 01/19/2012 ARRIOLA DO, AZALEA K V58.69 MEDICATION HIGH RISK 01/19/2012 ARRIOLA DO, AZALEA K V58.69 MEDICATION HIGH RISK 01/19/2012 ARRIOLA DO, AZALEA K V58.69 MEDICATION HIGH RISK 01/19/2012 BREEZY OAKES APRN R V58.69 MEDICATION HIGH RISK 01/19/2012 ANSELMO BEDOLLA APRN V58.69 MEDICATION HIGH RISK 01/19/2012 ANSELMO BEDOLLA APRN V58.69 MEDICATION HIGH RISK 12/05/2012 SHIREEN GREGORY DO 305.00 ALCOHOL ABUSE UNSPEC 12/05/2012 ARRIOLA DO, AZALEA K 305.00 ALCOHOL ABUSE UNSPEC 12/05/2012 305.00 ALCOHOL ABUSE UNSPEC 12/05/2012 305.00 ALCOHOL ABUSE UNSPEC 12/05/2012 ARRIOLA DO, AZALEA K 305.00 ALCOHOL ABUSE UNSPEC 12/05/2012 ANSELMO BEDOLLA APRN T 305.00 ALCOHOL ABUSE UNSPEC 12/05/2012 ARRIOLA , AZALEA K 305.00 ALCOHOL ABUSE UNSPEC 12/05/2012 ANSELMO BEDOLLA APRN T 305.00 ALCOHOL ABUSE UNSPEC 12/05/2012 ANSELMO BEDOLLA APRN T 305.00 ALCOHOL ABUSE UNSPEC 12/05/2012 ANSELMO BEDOLLA APRN 305.00 ALCOHOL ABUSE UNSPEC 12/05/2012 BILLY BUITRAGO MD 305.00 ALCOHOL ABUSE UNSPEC 12/05/2012 ANSELMO BEDOLLA APRN 305.00 ALCOHOL ABUSE UNSPEC 12/05/2012 TYLER PICHARDO APRN 305.00 ALCOHOL ABUSE UNSPEC 12/05/2012 ARRIOLA DO, AZALEA K 305.00 ALCOHOL ABUSE UNSPEC 12/05/2012 ARRIOLA DO, AZALEA K 305.00 ALCOHOL ABUSE UNSPEC 12/05/2012 ARRIOLA DO, AZALEA K 305.00 ALCOHOL ABUSE UNSPEC 12/05/2012 BREEZY OAKES APRN 305.00 ALCOHOL ABUSE UNSPEC 12/05/2012 ANSELMO BEDOLLA APRN T 305.00 ALCOHOL ABUSE UNSPEC 12/05/2012 ANSELMO BEDOLLA APRN T 305.00 ALCOHOL ABUSE UNSPEC 01/21/2013 ARRIOLA DO, AZALEA K V06.1 TDAP DX 01/21/2013 V06.1 TDAP DX 01/21/2013 V06.1 TDAP DX 01/21/2013 ARRIOLA DO, AZALEA K V06.1 TDAP DX 01/21/2013 ANSELMO BEDOLLA APRN T V06.1 TDAP DX 01/21/2013 FLAKO DENNY, AZALEA K V06.1 TDAP DX 01/21/2013 ANSELMO BEDOLLA APRN T V06.1 TDAP DX 01/21/2013 ANSELMO BEDOLLA APRN T V06.1 TDAP DX 01/21/2013 ANSELMO BEDOLLA APRN T V06.1 TDAP DX 01/21/2013 BILLY BUITRAGO MD V06.1 TDAP DX 01/21/2013 ANSELMO BEDOLLA APRN V06.1 TDAP DX 01/21/2013 OMER PICHARDO APRNA S V06.1 TDAP DX 01/21/2013 ARRIOLA , AZALEA K V06.1 TDAP DX 01/21/2013 ARRIOLA DO, AZALEA K V06.1 TDAP DX 01/21/2013 ARRIOLA DO, AZALEA K V06.1 TDAP DX 01/21/2013 BREZEY OAKES APRN R V06.1 TDAP DX 01/21/2013 ANSELMO BEDOLLA APRN T V06.1 TDAP DX 01/21/2013 ANSELMO BEDOLLA APRN V06.1 TDAP DX 03/27/2013 053.9 HERPES ZOSTER WITHOUT COMPLICATION 03/27/2013 053.9 HERPES ZOSTER (SHINGLES) 03/27/2013 EDITH ARRIOLA DOA K 053.9 HERPES ZOSTER (SHINGLES) 03/27/2013 ANSELMO BEDOLLA APRN T 053.9 HERPES ZOSTER (SHINGLES) 03/27/2013 EDITH ARRIOLA DOA K 053.9 HERPES ZOSTER (SHINGLES) 03/27/2013 ANSELMO BEDOLLA APRN T 053.9 HERPES ZOSTER (SHINGLES) 03/27/2013 ANSELMO BEDOLLA APRN T 053.9 HERPES ZOSTER (SHINGLES) 03/27/2013 ANSELMO BEDOLLA APRN T 053.9 HERPES ZOSTER (SHINGLES) 03/27/2013 BILLY BUITRAGO MD 053.9 HERPES ZOSTER (SHINGLES) 03/27/2013 ANSELMO BEDOLLA APRN 053.9 HERPES ZOSTER (SHINGLES) 03/27/2013 TYLER PICHARDO APRN S 053.9 HERPES ZOSTER (SHINGLES) 03/27/2013 FLAKO DENNY AZALEA K 053.9 HERPES ZOSTER (SHINGLES) 03/27/2013 FLAKO DENNY AZALEA K 053.9 HERPES ZOSTER (SHINGLES) 03/27/2013 FLAKO DENNY AZALEA K 053.9 HERPES ZOSTER (SHINGLES) 03/27/2013 BREEZY OAKES APRN R 053.9 HERPES ZOSTER (SHINGLES) 03/27/2013 ANSELMO BEDOLLA APRN T 053.9 HERPES ZOSTER (SHINGLES) 03/27/2013 ANSELMO BEDOLLA APRN T 053.9 HERPES ZOSTER (SHINGLES) 05/15/2013 EDITH ARRIOLA DOA K V70.0 ROUTINE GENERAL MEDICAL EXAMINATION AT A HEALTH CARE FACILITY 05/15/2013 EDITH ARRIOLA DOA K V77.99 SCREENING FOR OTHER AND UNSPECIFIED ENDOCRINE NUTRITIONAL METABOLIC AND IMMUNITY DISORDERS 05/15/2013 ANSELMO BEDOLLA APRN V70.0 ROUTINE GENERAL MEDICAL EXAMINATION AT A HEALTH CARE FACILITY 05/15/2013 ANSELMO BEDOLLA APRN V77.99 SCREENING FOR OTHER AND UNSPECIFIED ENDOCRINE NUTRITIONAL METABOLIC AND IMMUNITY DISORDERS 05/15/2013 EDITH ARRIOLA DOA K V70.0 ROUTINE GENERAL MEDICAL EXAMINATION AT A HEALTH CARE FACILITY 05/15/2013 EDITH ARRIOLA DOA K V77.99 SCREENING FOR OTHER AND UNSPECIFIED ENDOCRINE NUTRITIONAL METABOLIC AND IMMUNITY DISORDERS 05/15/2013 ANSELMO BEDOLLA APRN V70.0 ROUTINE GENERAL MEDICAL EXAMINATION AT A HEALTH CARE FACILITY 05/15/2013 ANSELMO BEDOLLA APRN V77.99 SCREENING FOR OTHER AND UNSPECIFIED ENDOCRINE NUTRITIONAL METABOLIC AND IMMUNITY DISORDERS 05/15/2013 ANSELMO BEDOLLA APRN V70.0 ROUTINE GENERAL MEDICAL EXAMINATION AT A HEALTH CARE FACILITY 05/15/2013 ANSELMO BEDOLLA APRN V77.99 SCREENING FOR OTHER AND UNSPECIFIED ENDOCRINE NUTRITIONAL METABOLIC AND IMMUNITY DISORDERS 05/15/2013 ANSELMO BEDOLLA APRN V70.0 ROUTINE GENERAL MEDICAL EXAMINATION AT A HEALTH CARE FACILITY 05/15/2013 ANSELMO BEDOLLA APRN V77.99 SCREENING FOR OTHER AND UNSPECIFIED ENDOCRINE NUTRITIONAL METABOLIC AND IMMUNITY DISORDERS 05/15/2013 BILLY BUITRAGO MD V70.0 ROUTINE GENERAL MEDICAL EXAMINATION AT A HEALTH CARE FACILITY 05/15/2013 BILLY BUITRAGO MD V77.99 SCREENING FOR OTHER AND UNSPECIFIED ENDOCRINE NUTRITIONAL METABOLIC AND IMMUNITY DISORDERS 05/15/2013 ANSELMO BEDOLLA APRN V70.0 ROUTINE GENERAL MEDICAL EXAMINATION AT A HEALTH CARE FACILITY 05/15/2013 ANSELMO BEDOLLA APRN V77.99 SCREENING FOR OTHER AND UNSPECIFIED ENDOCRINE NUTRITIONAL METABOLIC AND IMMUNITY DISORDERS 05/15/2013 TYLER PICHARDO APRN S V70.0 ROUTINE GENERAL MEDICAL EXAMINATION AT A HEALTH CARE FACILITY 05/15/2013 TYLER PICHARDO APRN V77.99 SCREENING FOR OTHER AND UNSPECIFIED ENDOCRINE NUTRITIONAL METABOLIC AND IMMUNITY DISORDERS 05/15/2013 AZALEA ARRIOLA DO K V70.0 ROUTINE GENERAL MEDICAL EXAMINATION AT A HEALTH CARE FACILITY 05/15/2013 ARRIOLA DO, AZALEA K V77.99 SCREENING FOR OTHER AND UNSPECIFIED ENDOCRINE NUTRITIONAL METABOLIC AND IMMUNITY DISORDERS 05/15/2013 ARRIOLA DO, AZALEA K V70.0 ROUTINE GENERAL MEDICAL EXAMINATION AT A HEALTH CARE FACILITY 05/15/2013 ARRIOLA DO, AZALEA K V77.99 SCREENING FOR OTHER AND UNSPECIFIED ENDOCRINE NUTRITIONAL METABOLIC AND IMMUNITY DISORDERS 05/15/2013 ARRIOLA DO, AZALEA K V70.0 ROUTINE GENERAL MEDICAL EXAMINATION AT A HEALTH CARE FACILITY 05/15/2013 ARRIOLA DO, AZALEA K V77.99 SCREENING FOR OTHER AND UNSPECIFIED ENDOCRINE NUTRITIONAL METABOLIC AND IMMUNITY DISORDERS 05/15/2013 BREEZY OAKES APRN V70.0 ROUTINE GENERAL MEDICAL EXAMINATION AT A HEALTH CARE FACILITY 05/15/2013 BREEZY OAKES APRN V77.99 SCREENING FOR OTHER AND UNSPECIFIED ENDOCRINE NUTRITIONAL METABOLIC AND IMMUNITY DISORDERS 05/15/2013 ANSELMO BEDOLLA APRN V70.0 ROUTINE GENERAL MEDICAL EXAMINATION AT A HEALTH CARE FACILITY 05/15/2013 ANSELMO BEDOLLA APRN V77.99 SCREENING FOR OTHER AND UNSPECIFIED ENDOCRINE NUTRITIONAL METABOLIC AND IMMUNITY DISORDERS 05/15/2013 ANSELMO BEDOLLA APRN V70.0 ROUTINE GENERAL MEDICAL EXAMINATION AT A HEALTH CARE FACILITY 05/15/2013 ANSELMO BEDOLLA APRN V77.99 SCREENING FOR OTHER AND UNSPECIFIED ENDOCRINE NUTRITIONAL METABOLIC AND IMMUNITY DISORDERS 08/23/2013 ANSELMO BEDOLLA APRN 300.00 ANXIETY UNSPEC 08/23/2013 ANSELMO BEDOLLA APRN 682.9 CELLULITIS AND ABSCESS OF UNSPECIFIED SITES 08/23/2013 ANSELMO BEDOLLA APRN 704.8 FOLLICULITIS 08/23/2013 ARRIOLA DO, AZALEA K 300.00 ANXIETY UNSPEC 08/23/2013 ARRIOLA DO, AZALEA K 682.9 CELLULITIS AND ABSCESS OF UNSPECIFIED SITES 08/23/2013 ARRIOLA DO, AZALEA K 704.8 FOLLICULITIS 08/23/2013 ANSELMO BEDOLLA APRN 300.00 ANXIETY UNSPEC 08/23/2013 ANSELMO BEDOLLA APRN 682.9 CELLULITIS AND ABSCESS OF UNSPECIFIED SITES 08/23/2013 ANSELMO BEDOLLA APRN 704.8 FOLLICULITIS 08/23/2013 ANSELMO BEDOLLA APRN 300.00 ANXIETY UNSPEC 08/23/2013 ANSELMO BEDOLLA APRN 682.9 CELLULITIS AND ABSCESS OF UNSPECIFIED SITES 08/23/2013 ANSELMO BEDOLLA APRN 704.8 FOLLICULITIS 08/23/2013 ANSELMO BEDOLLA APRN 300.00 ANXIETY UNSPEC 08/23/2013 ANSELMO BEDOLLA APRN 682.9 CELLULITIS AND ABSCESS OF UNSPECIFIED SITES 08/23/2013 ANSELMO BEDOLLA APRN 704.8 FOLLICULITIS 08/23/2013 BILLY BUITRAGO MD 300.00 ANXIETY UNSPEC 08/23/2013 BILLY BUITRAGO MD 682.9 CELLULITIS AND ABSCESS OF UNSPECIFIED SITES 08/23/2013 BILLY BUITRAGO MD 704.8 FOLLICULITIS 08/23/2013 ANSELMO BEDOLLA APRN 300.00 ANXIETY UNSPEC 08/23/2013 ANSELMO BEDOLLA APRN 682.9 CELLULITIS AND ABSCESS OF UNSPECIFIED SITES 08/23/2013 ANSELMO BEDOLLA APRN 704.8 FOLLICULITIS 08/23/2013 TYLER PICHARDO APRN S 300.00 ANXIETY UNSPEC 08/23/2013 TYLER PICHARDO APRN S 682.9 CELLULITIS AND ABSCESS OF UNSPECIFIED SITES 08/23/2013 TYLER PICHARDO APRN S 704.8 FOLLICULITIS 08/23/2013 ARRIOLA DO, AZALEA K 300.00 ANXIETY UNSPEC 08/23/2013 ARRIOLA DO, AZALEA K 682.9 CELLULITIS AND ABSCESS OF UNSPECIFIED SITES 08/23/2013 ARRIOLA DO, AZALEA K 704.8 FOLLICULITIS 08/23/2013 ARRIOLA DO, AZALEA K 300.00 ANXIETY UNSPEC 08/23/2013 ARRIOLA DO, AZALEA K 682.9 CELLULITIS AND ABSCESS OF UNSPECIFIED SITES 08/23/2013 ARRIOLA DO, AZALEA K 704.8 FOLLICULITIS 08/23/2013 ARRIOLA DO, AZALEA K 300.00 ANXIETY UNSPEC 08/23/2013 ARRIOLA DO, AZALEA K 682.9 CELLULITIS AND ABSCESS OF UNSPECIFIED SITES 08/23/2013 ARRIOLA DO, AZALEA K 704.8 FOLLICULITIS 08/23/2013 JANA OAKES APRNIA R 300.00 ANXIETY UNSPEC 08/23/2013 BREEZY OAKES APRN R 682.9 CELLULITIS AND ABSCESS OF UNSPECIFIED SITES 08/23/2013 BREEZY OAKES APRN R 704.8 FOLLICULITIS 08/23/2013 ANSELMO BEDOLLA APRN 300.00 ANXIETY UNSPEC 08/23/2013 ANSELMO BEDOLLA APRN 682.9 CELLULITIS AND ABSCESS OF UNSPECIFIED SITES 08/23/2013 ANSELMO BEDOLLA APRN T 704.8 FOLLICULITIS 08/23/2013 ANSELMO BEDOLLA APRN 300.00 ANXIETY UNSPEC 08/23/2013 ANSELMO BEDOLLA APRN 682.9 CELLULITIS AND ABSCESS OF UNSPECIFIED SITES 08/23/2013 ANSELMO BEDOLLA APRN 704.8 FOLLICULITIS 08/25/2013 FLAKO DO AZALEA K 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.9 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 08/25/2013 ARRIOLA DO AZALEA K 782.1 RASH AND OTHER NONSPECIFIC SKIN ERUPTION 08/25/2013 ANSELMO BEDOLLA APRN 608.9 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 08/25/2013 ANSELMO BEDOLLA APRN 782.1 RASH AND OTHER NONSPECIFIC SKIN ERUPTION 08/25/2013 ANSELMO BEDOLLA APRN 608.9 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 08/25/2013 ANSELMO BEDOLLA APRN 782.1 RASH AND OTHER NONSPECIFIC SKIN ERUPTION 08/25/2013 ANSELMO BEDOLLA APRN 608.9 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 08/25/2013 ANSELMO BEDOLLA APRN 782.1 RASH AND OTHER NONSPECIFIC SKIN ERUPTION 08/25/2013 BILLY BUITRAGO MD 608.9 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 08/25/2013 BILLY BUITRAGO MD 782.1 RASH AND OTHER NONSPECIFIC SKIN ERUPTION 08/25/2013 ANSELMO BEDOLLA APRN 608.9 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 08/25/2013 ANSELMO BEDOLLA APRN 782.1 RASH AND OTHER NONSPECIFIC SKIN ERUPTION 08/25/2013 TYLER PICHARDO APRN S 608.9 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 08/25/2013 KYLEE SCHAEFFER TYLER S 782.1 RASH AND OTHER NONSPECIFIC SKIN ERUPTION 08/25/2013 ARRIOLA DO AZALEA K 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.9 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 08/25/2013 ARRIOLA DO, AZALEA K 782.1 RASH AND OTHER NONSPECIFIC SKIN ERUPTION 08/25/2013 ARRIOLA DO AZALEA K 608.9 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 08/25/2013 ARRIOLA DO, AZALEA K 782.1 RASH AND OTHER NONSPECIFIC SKIN ERUPTION 08/25/2013 ARRIOLA DO, AZALEA K 608.9 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 08/25/2013 ARRIOLA DO, AZALEA K 782.1 RASH AND OTHER NONSPECIFIC SKIN ERUPTION 08/25/2013 BREEZY OAKES APRN R 608.9 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 08/25/2013 JANA OAKES APRNIA R 782.1 RASH AND OTHER NONSPECIFIC SKIN ERUPTION 08/25/2013 ANSELMO BEDOLLA APRN 608.9 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 08/25/2013 ANSELMO BEDOLLA APRN 782.1 RASH AND OTHER NONSPECIFIC SKIN ERUPTION 08/25/2013 ANSELMO BEDOLLA APRN 608.9 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 08/25/2013 ANSELMO BEDOLLA APRN 782.1 RASH AND OTHER NONSPECIFIC SKIN ERUPTION 09/30/2013 IVAN VEE APRN Ot 682.1 CELLULITIS OF NECK 10/20/2013 ANSELMO BEDOLLA APRN 786.2 COUGH 10/20/2013 ANSELMO BEDOLLA APRN 786.2 COUGH 10/20/2013 ANSELMO BEDOLLA APRN 786.2 COUGH 10/20/2013 BILLY BUITRAGO MD 786.2 COUGH 10/20/2013 ANSELMO BEDOLLA APRN 786.2 COUGH 10/20/2013 TYLER PICHARDO APRN S 786.2 COUGH 10/20/2013 ARRIOLA DO, AZALEA K 786.2 COUGH 10/20/2013 ARRIOLA DO, AZALEA K 786.2 COUGH 10/20/2013 ARRIOLA DO, AZALEA K 786.2 COUGH 10/20/2013 BREEZY OAKES APRN R 786.2 COUGH 10/20/2013 ANSELMO BEDOLLA APRN 786.2 COUGH 10/20/2013 ANSELMO BEDOLLA APRN 786.2 COUGH 12/22/2013 ANSELMO BEDOLLA APRN 477.9 RHINITIS 12/22/2013 BILLY BUITRAGO MD 477.9 RHINITIS 12/22/2013 ANSELMO BEDOLLA APRN 477.9 RHINITIS 12/22/2013 TYLER PICHARDO APRN S 477.9 RHINITIS 12/22/2013 ARRIOLA DO AZALEA K 477.9 RHINITIS 12/22/2013 ARRIOLA DO, AZALEA K 477.9 RHINITIS 12/22/2013 ARRIOLA DO AZALEA K 477.9 RHINITIS 12/22/2013 JANA OAKES APRNIA R 477.9 RHINITIS 12/22/2013 ANSELMO BEDOLLA APRN 477.9 RHINITIS 12/22/2013 ANSELMO BEDOLLA APRN 477.9 RHINITIS 01/04/2014 IFTIKHAR HERNDON, BILLY Hoang 525.9 tooth pain 01/04/2014 ANSELMO BEDOLLA APRN 525.9 tooth pain 01/04/2014 TYLER PICHARDO APRN S 525.9 tooth pain 01/04/2014 ARRIOLA DO, AZALEA K 525.9 TOOTH PAIN 01/04/2014 ARRIOLA DO, AZALEA K 525.9 TOOTH PAIN 01/04/2014 ARRIOLA DO, AZALEA K 525.9 TOOTH PAIN 01/04/2014 JANA OAKES APRNIA R 525.9 TOOTH PAIN 01/04/2014 ANSELMO BEDOLLA APRN 525.9 TOOTH PAIN 01/04/2014 ANSELMO BEDOLLA APRN 525.9 TOOTH PAIN 03/08/2014 TYLER PICHARDO APRN S 682.9 CELLULITIS AND ABSCESS OF UNSPECIFIED SITES 03/08/2014 ARRIOLA DO, AZALEA K 682.9 CELLULITIS AND ABSCESS OF UNSPECIFIED SITES 03/08/2014 ARRIOLA DO, AZALEA K 682.9 CELLULITIS AND ABSCESS OF UNSPECIFIED SITES 03/08/2014 ARRIOLA DO, AZALEA K 682.9 CELLULITIS AND ABSCESS OF UNSPECIFIED SITES 03/08/2014 BREEZY OAKES APRN R 682.9 CELLULITIS AND ABSCESS OF UNSPECIFIED SITES 03/08/2014 ANSELMO BDEOLLA APRN 682.9 CELLULITIS AND ABSCESS OF UNSPECIFIED SITES 03/08/2014 ANSELMO BEDOLLA APRN 682.9 CELLULITIS AND ABSCESS OF UNSPECIFIED SITES 05/03/2014 BREEZY OAKES APRN R 705.83 HIDRADENITIS 05/03/2014 ANSELMO BEDOLLA APRN 705.83 HIDRADENITIS 05/03/2014 ANSELMO BEDOLLA APRN 705.83 HIDRADENITIS 06/07/2014 ASAD DREW MD Ot 923.03 CONTUSION OF UPPER ARM 06/07/2014 ASAD DREW MD Ot E000.8 OTHER EXTERNAL CAUSE STATUS 06/07/2014 ASAD DREW MD Ot E928.9 ACCIDENT NOS 09/02/2014 ASAD DREW MD Ot 525.9 DENTAL DISORDER NOS 10/30/2014 Ot 724.4 10/30/2014 CLOVER GUEVARA Ot 603.9 10/30/2014 CLOVER GUEVARA Ot 608.89 10/30/2014 EVAN ALARCON DO Ot 682.8 CELLULITIS, SITE NEC 12/28/2014 ANSELMO BEDOLLA APRN 333.94 RESTLESS LEGS SYNDROME (RLS) 12/28/2014 ANSELMO BEDOLLA APRN 607.89 OTHER SPECIFIED DISORDERS OF PENIS 12/28/2014 ANSELMO BEDOLLA APRN 780.52 INSOMNIA UNSPECIFIED 04/17/2015 Ot 603.9 04/17/2015 Ot 608.89 06/12/2015 Ot 603.9 06/12/2015 Ot 608.89 08/05/2015 Ot 603.9 08/05/2015 Ot 608.89 04/26/2018 CLOVER GUEVARA Ot 603.9 HYDROCELE NOS 04/26/2018 CLOVER GUEVARA Ot 608.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 04/26/2018 Ot 603.9 HYDROCELE NOS 04/26/2018 Ot 608.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 04/27/2018 BEN JEAN BAPTISTE DO Ot M25.551 PAIN IN RIGHT HIP 04/27/2018 BEN JEAN BAPTISTE DO Ot M25.551 PAIN IN RIGHT HIP 04/28/2018 CLOVER GUEVARA Ot 603.9 HYDROCELE NOS 04/28/2018 CLOVER GUEVARA Ot 608.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 04/28/2018 Ot 603.9 HYDROCELE NOS 04/28/2018 Ot 608.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 04/28/2018 BEN JEAN BAPTISTE DO Ot M25.551 PAIN IN RIGHT HIP 05/02/2018 BEN JEAN BAPTISTE DO Ot M47.817 SPONDYLS W/O MYELOPATHY OR RADICULOPATHY 05/02/2018 BEN JEAN BAPTISTE DO Ot M48.07 SPINAL STENOSIS, LUMBOSACRAL REGION 05/02/2018 BEN JEAN BAPTISTE DO Ot M51.27 OTHER INTERVERTEBRAL DISC DISPLACEMENT, 05/02/2018 BEN JEAN BAPTISTE DO Ot M51.37 OTHER INTERVERTEBRAL DISC DEGENERATION, 05/02/2018 [facility] Wynne Ot M99.73 CONN TISS AND DISC STENOS OF INTVRT FORA 05/17/2018 ITA DENNY BEN Wynne Ot M25.551 PAIN IN RIGHT HIP 05/20/[facility] Ot M47.817 SPONDYLS W/O MYELOPATHY OR RADICULOPATHY 05/20/2018 [facility] Wynne Ot M48.07 SPINAL STENOSIS, LUMBOSACRAL REGION 05/20/2018 [facility] Ot M51.27 OTHER INTERVERTEBRAL DISC DISPLACEMENT, 05/20/2018 [facility] Wynne Ot M51.37 OTHER INTERVERTEBRAL DISC DEGENERATION, 05/20/2018 [facility] yWnne Ot M99.73 CONN TISS AND DISC STENOS OF INTVRT FORA Procedures Code [place] [address] US SCROTUM ULTRASOUND 08/25/2013 89249 I/D SIMPLE ABSCESS 03/10/2014 [id number] CULTURE WOUND (AEROBIC) 05/03/2014 Results There is no data. Encounters ACCT No. Visit Date/Time Discharge Status Pt. Type Provider Facility Loc./Unit Complaint [id number] 12/28/2014 15:35:00 12/28/2014 23:59:59 CLS Outpatient ANSELMO BEDOLLA APRN [id number] 06/25/2014 15:34:00 06/25/2014 23:59:59 CLS Outpatient ANSELMO BEDOLLA APRN [id number] 05/03/2014 13:30:00 05/03/2014 23:59:59 CLS Outpatient BREEZY OAKES APRN [id number] 03/16/2014 14:50:00 03/16/2014 23:59:59 CLS Outpatient AZALEA ARRIOLA DO [id number] 03/14/2014 16:57:00 03/14/2014 23:59:59 CLS Outpatient AZALEA ARRIOLA DO [id number] 03/12/2014 17:26:00 03/12/2014 23:59:59 CLS Outpatient AZALEA ARRIOLA DO [id number] 03/10/2014 09:26:00 03/10/2014 23:59:59 CLS Outpatient TYLER PICHARDO APRN [id number] 02/19/2014 16:36:00 02/19/2014 23:59:59 CLS Outpatient ANSELMO BEDOLLA APRN [id number] 01/04/2014 15:36:00 01/04/2014 23:59:59 CLS Outpatient BILLY BUITRAGO MD [id number] 12/22/2013 16:29:00 12/22/2013 23:59:59 CLS Outpatient ANSELMO BEDOLLA APRN [id number] 11/20/2013 15:58:00 11/20/2013 23:59:59 CLS Outpatient ANSELMO BEDOLLA APRN [id number] 10/20/2013 15:02:00 10/20/2013 23:59:59 CLS Outpatient ANSELMO BEDOLLA APRN [id number] 08/25/2013 15:16:00 08/25/2013 23:59:59 CLS Outpatient ARRIOLA AZALEA [id number] 08/23/2013 18:11:00 08/23/2013 23:59:59 CLS Outpatient ANSELMO BEDOLLA APRN [id number] 06/07/2013 16:16:00 06/07/2013 23:59:59 CLS Outpatient AZALEA ARRIOLA DO [id number] 01/21/2013 13:35:00 01/21/2013 23:59:59 CLS Outpatient AZALEA ARRIOLA DO [id number] 12/05/2012 15:25:00 12/05/2012 23:59:59 CLS Outpatient SHIREEN GREGORY DO [id number] 04/12/2013 14:44:00 Document Registration [id number] 03/27/2013 11:32:00 Document Registration [id number] 01/21/2013 13:55:38 RECURRING [id number] 04/29/2018 07:29:00 04/29/2018 23:59:59 CLS Outpatient BEN JEAN BAPTISTE DO [facility] RAD LOW BACK PAIN [id number] 04/26/2018 00:54:00 04/26/2018 23:59:59 CLS Outpatient BEN JEAN BAPTISTE DO [facility] RAD RIGHT HIP PAIN [id number] 11/29/2017 15:02:00 11/29/2017 23:59:59 CLS Preadmit GUY COKER MD [facility] RAD RESTLESS LEG SYNDROME [id number] 11/29/2017 14:58:00 11/29/2017 23:59:59 CLS Preadmit SHEELA HERNDON, GUY Root [facility] CARD RESTLESS LEG SYNDROME, ANXIETY [id number] 10/30/2014 20:47:00 10/30/2014 21:43:00 DIS Emergency AGNES DENNY EVAN Chi [facility] ER HEAD ABECSS [id number] 09/02/2014 03:01:00 09/02/2014 03:29:00 DIS Emergency ASAD DREW MD [facility] ER DENTAL PAIN [id number] 06/07/2014 22:26:00 06/07/2014 23:03:00 DIS Emergency ASAD DREW MD [facility] ER L ARM PAIN [id number] 09/30/2013 19:35:00 09/30/2013 19:56:00 DIS Emergency IVAN VEE APRN [facility] ER ABSCESS ON NECK [id number] 08/29/2013 11:52:00 08/29/2013 23:59:59 CLS Outpatient CLOVER GUEVARA [facility] RAD SCROTAL MASS [id number] 04/17/2015 11:58:00 Document Registration [id number] 07/06/2011 13:23:00 Document Registration [id number] 10/18/2010 07:42:00 Document Registration [id number] 10/30/2014 20:47:43 ACT Document Registration
[2018-06-20] MEDS ORDERED: KETOROLAC 30 MG/ML VIAL IVP ONE (03:30)
[2018-06-20] MEDS ORDERED: cefTRIAXone FOR IV USE 1,000 MG in NS (IVPB) 50 ML IV ONE (03:30)
[2018-06-20 03:36] LABS: BASOPHILS % (AUTO) 0 % (0-10); EOSINOPHILS % (AUTO) 0 % (0-10); HEMATOCRIT 38 % (40-54); HEMOGLOBIN 13.6 G/DL (13.3-17.7); LYMPHOCYTES # (AUTO) 1.4 X 10^3 (1.0-4.0); LYMPHOCYTES % (AUTO) 20 % (12-44); MEAN CORPUSCULAR HEMOGLOBIN 33 PG (25-34); MEAN CORPUSCULAR HGB CONC 36 G/DL (32-36); MEAN CORPUSCULAR VOLUME 92 FL (80-99); MEAN PLATELET VOLUME 10.5 FL (7.4-10.4); MONOCYTES # (AUTO) 0.8 X 10^3 (0.0-1.0); MONOCYTES % (AUTO) 12 % (0-12); NEUTROPHILS # (AUTO) 4.9 X 10^3 (1.8-7.8); NEUTROPHILS % (AUTO) 69 % (42-75); PLATELET COUNT 161 10^3/uL (130-400); RED BLOOD COUNT 4.16 10^6/uL (4.35-5.85); RED CELL DISTRIBUTION WIDTH 12.9 % (10.0-14.5); WHITE BLOOD COUNT 7.2 10^3/uL (4.3-11.0)
[2018-06-20 03:55] LABS: ALANINE AMINOTRANSFERASE 15 U/L (0-55); ALBUMIN 3.8 GM/DL (3.2-4.5); ALKALINE PHOSPHATASE 91 U/L (40-136); BILIRUBIN,TOTAL 0.6 MG/DL (0.1-1.0); BUN/CREATININE RATIO 15; CALCIUM 8.8 MG/DL (8.5-10.1); CARBON DIOXIDE 23 MMOL/L (21-32); CHLORIDE 107 MMOL/L (98-107); CREATININE SERUM 0.96 MG/DL (0.60-1.30); GFR ESTIMATED > 60; GLUCOSE 139 MG/DL (70-105); POTASSIUM 3.7 MMOL/L (3.6-5.0); SODIUM 139 MMOL/L (135-145); TOTAL PROTEIN 6.9 GM/DL (6.4-8.2)
[2018-06-20] MEDS ORDERED: VANCOMYCIN INJECTION 1,000 MG in NS (IVPB) 250 ML IV ONE (05:45)
--- NOTE | 2018-06-20 05:56 | Diagnostic Imaging Report ---
EXAMINATION: Left foot, 3 views. COMPARISON: March 29, 2008. HISTORY: 67-year-old male, left foot redness and swelling. FINDINGS: There is severe joint space loss at the first metatarsophalangeal joint with small osteophytes. There is an area of well-corticated ossification adjacent to the lateral aspect of the proximal metaphysis of the first metatarsal. This is compatible with a chronic long-standing etiology. There is a multipart os peroneum. There is a small calcaneal heel spur. There is no identified ankle joint effusion. There is no radiopaque foreign body. There is no identified acute fracture. There is no cortical or aggressive bone destruction. There is no periosteal reaction. IMPRESSION: 1. No radiographic evidence of osteomyelitis or other acute bony abnormality of the left foot. 2. Severe osteoarthritis of the first metatarsophalangeal joint. Dictated by: Dictated on workstation # [id number]
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
[2018-06-20] MEDS ORDERED: VANCOMYCIN 500 MG/D5W 100 ML IV NR ×2 (07:57)
[2018-06-20 08:00] VITALS: BP 144/71
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
--- OUTSIDE RECORDS SUMMARY | 2018-06-20 08:43 | XMS REPORT | Continuity of Care Document ---
Author Author [facility] Address Unknown Phone Unavailable Allergies Active Description Code Type Severity Reaction Onset Reported/Identified Relationship to Patient Clinical Status Yes No Known Drug Allergies [id number] Drug Allergy Unknown N/A 10/18/2010 Yes SWEET [...] JOINT INVOLVING ANKLE AND FOOT 11/26/2008 EDITH ARROILA DOA K 724.3 SCIATICA 11/26/2008 ANSELMO BEDOLLA [...] FLAKO DENNYEDITHA K 724.2 LUMBAGO 12/11/2008 FLAKO DENNYEDTIHA K 729.2 NEURALGIA NEURITIS AND RADICULITIS UNSPECIFIED [...] LOCALIZED SECONDARY INVOLVING ANKLE AND FOOT 12/28/2008 AZALAE ARRIOLA DO 735.2 HALLUX RIGIDUS 12/28/2008 ANSELMO BEDOLLA APRN 715.27 OSTEOARTHROSIS LOCALIZED SECONDARY INVOLVING ANKLE AND FOOT 12/28/2008 ANSELMO BEDOLLA APRN 735.2 HALLUX RIGIDUS 12/28/2008 ANSELMO BEDOLLA APRN 715.27 OSTEOARTHROSIS LOCALIZED SECONDARY INVOLVING ANKLE AND FOOT 12/28/2008 ANSELMO BEDOLLA APRN 735.2 HALLUX RIGIDUS 12/28/2008 ANSELMO BEDOLLA APRN 715.27 OSTEOARTHROSIS LOCALIZED SECONDARY INVOLVING ANKLE AND FOOT 12/28/2008 ANSELMO EBDOLLA APRN 735.2 HALLUX RIGIDUS 12/28/2008 BILLY BUITRAGO [...] DO, AZALEA K V06.1 TDAP DX 01/21/2013 BREEZY OAKES APRN R V06.1 TDAP DX 01/21/2013 [...] Ot M51.37 OTHER INTERVERTEBRAL DISC DEGENERATION, 05/02/2018 [facility]EN Wynne Ot M99.73 CONN TISS AND DISC STENOS OF INTVRT FORA 05/17/2018 ITA DENNY BEN Wynne Ot M25.551 PAIN IN RIGHT HIP 05/20/2018 [facility] Wynne Ot M47.817 SPONDYLS W/O MYELOPATHY OR RADICULOPATHY 05/20/2018 [facility] BEN Wynne Ot M48.07 SPINAL STENOSIS, LUMBOSACRAL REGION 05/20/2018 [facility] Wynne Ot M51.27 OTHER INTERVERTEBRAL DISC DISPLACEMENT, 05/20/2018 [facility] Wynne Ot M51.37 OTHER INTERVERTEBRAL DISC DEGENERATION, 05/20/2018 [facility] BEN Wynne Ot M99.73 CONN TISS AND DISC STENOS OF INTVRT FORA Procedures Code [place] [address] US SCROTUM ULTRASOUND 08/25/2013 78829 I/D SIMPLE ABSCESS 03/10/2014 65471 CULTURE WOUND (AEROBIC) 05/03/2014 Results There is no data. Encounters ACCT No. Visit Date/Time Discharge Status Pt. Type Provider Facility Loc./Unit Complaint [id number] 12/28/2014 15:35:00 12/28/2014 23:59:59 CLS Outpatient ANSELMO BEDOLLA APRN [id number] 06/25/2014 15:34:00 06/25/2014 23:59:59 CLS Outpatient ANSELMO BEDOLLA APRN [id number] 05/03/2014 13:30:00 05/03/2014 23:59:59 CLS Outpatient BREEZY OAKES APRN [id number] 03/16/2014 14:50:00 03/16/2014 23:59:59 CLS Outpatient AZALEA ARRIOLA DO [id number] 03/14/2014 16:57:00 03/14/2014 23:59:59 CLS Outpatient AZALEA ARRIOLA DO [id number] 03/12/2014 17:26:00 03/12/2014 23:59:59 CLS Outpatient AZALEA ARRIOLA DO [id number] 03/10/2014 09:26:00 03/10/2014 23:59:59 CLS Outpatient TYLER PICHARDO APRN [id number] 02/19/2014 16:36:00 02/19/2014 23:59:59 CLS Outpatient ANSELMO BEDOLLA APRN [id number] 01/04/2014 15:36:00 01/04/2014 23:59:59 CLS Outpatient BILLY BUITRAGO MD [id number] 12/22/2013 16:29:00 12/22/2013 23:59:59 CLS Outpatient ANSELMO BEDOLLA APRN [id number] 11/20/2013 15:58:00 11/20/2013 23:59:59 CLS Outpatient ANSELMO BEDOLLA APRN [id number] 10/20/2013 15:02:00 10/20/2013 23:59:59 CLS Outpatient ANSELMO BEDOLLA APRN [id number] 08/25/2013 15:16:00 08/25/2013 23:59:59 CLS Outpatient ARRIOLA AZALEA [id number] 08/23/2013 18:11:00 08/23/2013 23:59:59 CLS Outpatient ANSELMO BEDOLLA APRN [id number] 06/07/2013 16:16:00 06/07/2013 23:59:59 CLS Outpatient AZALEA ARRIOLA DO [id number] 01/21/2013 13:35:00 01/21/2013 23:59:59 CLS Outpatient AZALEA ARRIOLA DO [id number] 12/05/2012 15:25:00 12/05/2012 23:59:59 CLS Outpatient SHIREEN GREGORY DO [id number] 04/12/2013 14:44:00 Document Registration [id number] 03/27/2013 11:32:00 Document Registration [id number] 01/21/2013 13:55:38 RECURRING [id number] 04/29/2018 07:29:00 04/29/2018 23:59:59 CLS Outpatient BEN JEAN BAPTISTE DO [facility] RAD LOW BACK PAIN [id number] 04/26/2018 00:54:00 04/26/2018 23:59:59 CLS Outpatient BEN JEAN BAPTISTE DO [facility] RAD RIGHT HIP PAIN [id number] 11/29/2017 15:02:00 11/29/2017 23:59:59 CLS Preadmit GUY COKER MD [facility] RAD RESTLESS LEG SYNDROME [id number] 11/29/2017 14:58:00 11/29/2017 23:59:59 CLS Preadmit SHEELA HERNDON, GUY Root [facility] CARD RESTLESS LEG SYNDROME, ANXIETY [id number] 10/30/2014 20:47:00 10/30/2014 21:43:00 DIS Emergency AGNES DENNY EVAN Chi [facility] ER HEAD ABECSS [id number] 09/02/2014 03:01:00 09/02/2014 03:29:00 DIS Emergency ASAD DREW MD [facility] ER DENTAL PAIN [id number] 06/07/2014 22:26:00 06/07/2014 23:03:00 DIS Emergency ASAD DREW MD [facility] ER L ARM PAIN [id number] 09/30/2013 19:35:00 09/30/2013 19:56:00 DIS Emergency IVAN VEE APRN [facility] ER ABSCESS ON NECK [id number] 08/29/2013 11:52:00 08/29/2013 23:59:59 CLS Outpatient CLOVER GUEVARA [facility] RAD SCROTAL MASS [id number] 04/17/2015 11:58:00 Document Registration [id number] 07/06/2011 13:23:00 Document Registration [id number] 10/18/2010 07:42:00 Document Registration [id number] 10/30/2014 20:47:43 ACT Document Registration
[2018-06-20] MEDS: cefTRIAXone 1 GM/NS 50 ML IVPB IV SCH ×2 (09:47)
[2018-06-20] MEDS ORDERED: CEPH500C PO (09:48)
[2018-06-20 12:00] VITALS: BP 129/70
[2018-06-20 15:38] VITALS: BP 147/77
[2018-06-20] MEDS: fentaNYL INJECTION 100 MCG/2 ML AMP IVP PRN (18:15)
[2018-06-20 20:20] VITALS: BP 128/60
[2018-06-20] MEDS: VANCOMYCIN 1250 MG/NS 250 ML IVPB IV SCH ×2 (21:07)
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
[2018-06-21 00:19] VITALS: BP 132/70
[2018-06-21 04:14] VITALS: BP 140/77
[2018-06-21 05:51] LABS: BASOPHILS % (AUTO) 0 % (0-10); EOSINOPHILS % (AUTO) 0 % (0-10); HEMATOCRIT 41 % (40-54); HEMOGLOBIN 14.1 G/DL (13.3-17.7); LYMPHOCYTES # (AUTO) 1.3 X 10^3 (1.0-4.0); LYMPHOCYTES % (AUTO) 22 % (12-44); MEAN CORPUSCULAR HEMOGLOBIN 32 PG (25-34); MEAN CORPUSCULAR HGB CONC 35 G/DL (32-36); MEAN CORPUSCULAR VOLUME 92 FL (80-99); MEAN PLATELET VOLUME 10.7 FL (7.4-10.4); MONOCYTES # (AUTO) 0.7 X 10^3 (0.0-1.0); MONOCYTES % (AUTO) 11 % (0-12); NEUTROPHILS # (AUTO) 3.9 X 10^3 (1.8-7.8); NEUTROPHILS % (AUTO) 67 % (42-75); PLATELET COUNT 151 10^3/uL (130-400); RED BLOOD COUNT 4.43 10^6/uL (4.35-5.85); RED CELL DISTRIBUTION WIDTH 12.8 % (10.0-14.5); WHITE BLOOD COUNT 5.8 10^3/uL (4.3-11.0)
[2018-06-21 06:11] LABS: BUN/CREATININE RATIO 15; CALCIUM 9.3 MG/DL (8.5-10.1); CARBON DIOXIDE 20 MMOL/L (21-32); CHLORIDE 110 MMOL/L (98-107); CREATININE SERUM 0.79 MG/DL (0.60-1.30); GFR ESTIMATED > 60; GLUCOSE 96 MG/DL (70-105); POTASSIUM 4.1 MMOL/L (3.6-5.0); SODIUM 138 MMOL/L (135-145)
[2018-06-21 07:39] VITALS: BP 141/75
--- NOTE | 2018-06-21 08:36 | Progress Note (SOAP) ---
Subjective Time Seen by Provider: 08:32 Subjective/Events-last exam Left foot cellulitis improving by toes Focused Exam Lactate Level 06/20/18 03:30: Lactic Acid Level 1.30 Objective Exam Vital Signs Date Time Temp Pulse Resp B/P (MAP) Pulse Ox O2 Delivery O2 Flow Rate FiO2 06/21/18 07:39 98.9 91 20 141/75 (97) 97 Room Air 06/21/18 04:14 98.1 90 18 140/77 (98) 94 Room Air 06/21/18 00:19 98.4 86 18 132/70 (90) 94 Room Air 06/20/18 20:20 99.4 97 20 128/60 (82) 95 Room Air 06/20/18 15:38 99.1 100 20 147/77 (100) 97 Room Air 06/20/18 12:00 98.7 83 22 129/70 (89) 96 Room Air I & O 06/21/18 07:00 Intake Total 1640 ml Output Total 450 ml Balance 1190 ml Capillary Refill : Less Than 3 Seconds General Appearance: No Apparent Distress, WD/WN HEENT: Normal ENT Inspection Neck: Full Range of Motion, Normal Inspection Respiratory: Normal Breath Sounds, No Accessory Muscle Use, No Respiratory Distress Cardiovascular: Regular Rate, Rhythm Results Lab Laboratory Tests 06/21/18 05:40 Laboratory Tests 06/21/18 05:40: White Blood Count 5.8, Red Blood Count 4.43, Hemoglobin 14.1, Hematocrit 41, Mean Corpuscular Volume 92, Mean Corpuscular Hemoglobin 32, Mean Corpuscular Hemoglobin Concent 35, Red Cell Distribution Width 12.8, Platelet Count 151, Mean Platelet Volume 10.7H, Neutrophils (%) (Auto) 67, Lymphocytes (%) (Auto) 22 , Monocytes (%) (Auto) 11, Eosinophils (%) (Auto) 0, Basophils (%) (Auto) 0, Neutrophils # (Auto) 3.9, Lymphocytes # (Auto) 1.3, Monocytes # (Auto) 0.7, Eosinophils # (Auto) 0.0, Basophils # (Auto) 0.0, Sodium Level 138, Potassium Level 4.1, Chloride Level 110H, Carbon Dioxide Level 20L, Anion Gap 8, Blood Urea Nitrogen 12, Creatinine 0.79, Estimat Glomerular Filtration Rate > 60, BUN/ Creatinine Ratio 15, Glucose Level 96, Calcium Level 9.3 Microbiology 06/20/18 Blood Culture - Preliminary, Resulted No growth Assessment/Plan Assessment/Plan Assess & Plan/Chief Complaint Cellulitis of foot left Clinical Quality Measures Admission Status Admission Dx Cellulitis left foot outpatient failure DVT/VTE Risk/Contraindication: Risk Factor Score Per Nursin RFS Level Per Nursing on Admit: 3=High Contraindications-Mechi: Other *list below* BEN JEAN BAPTISTE DO Jun 21, 2018 08:36
[2018-06-21] MEDS: VANCOMYCIN 1250 MG/NS 250 ML IVPB IV SCH ×4 (08:47→21:29)
[2018-06-21] MEDS: cefTRIAXone 1 GM/NS 50 ML IVPB IV SCH ×2 (10:02)
[2018-06-21] MEDS: KETOROLAC 15 MG/ML VIAL IVP PRN (10:05)
[2018-06-21 12:00] VITALS: BP 143/72
--- NOTE | 2018-06-21 15:59 | Progress Note ---
Subjective Date Seen by Provider: Jun 21, 2018 Time Seen by Provider: 15:53 Subjective/Events-last exam foot feeling about the same. Having some slight drainage which was cultured today. Patient tolerating diet. No n/v fever sweats chills shortness of breath or chest pain. Focused Exam Lactate Level 06/20/18 03:30: Lactic Acid Level 1.30 Objective Exam Vital Signs Date Time Temp Pulse Resp B/P (MAP) Pulse Ox O2 Delivery O2 Flow Rate FiO2 06/21/18 12:00 98.0 60 20 143/72 (95) 98 Room Air 06/21/18 07:39 98.9 91 20 141/75 (97) 97 Room Air 06/21/18 04:14 98.1 90 18 140/77 (98) 94 Room Air 06/21/18 00:19 98.4 86 18 132/70 (90) 94 Room Air 06/20/18 20:20 99.4 97 20 128/60 (82) 95 Room Air I & O 06/21/18 07:00 Intake Total 1640 ml Output Total 450 ml Balance 1190 ml Capillary Refill : Less Than 3 Seconds General Appearance: No Apparent Distress, WD/WN HEENT: Normal ENT Inspection Neck: Full Range of Motion, Normal Inspection Respiratory: Normal Breath Sounds, No Accessory Muscle Use, No Respiratory Distress Cardiovascular: Regular Rate, Rhythm Gastrointestinal: non tender, soft Extremity: Other (marked edema and erythema of the dorsal distal left foot. There is a crack in the skin between the fourth and fifth toe. 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 Norm as Tested Skin: Warm/Dry, Erythema Results Lab Laboratory Tests 06/21/18 05:40: White Blood Count 5.8, Red Blood Count 4.43, Hemoglobin 14.1, Hematocrit 41, Mean Corpuscular Volume 92, Mean Corpuscular Hemoglobin 32, Mean Corpuscular Hemoglobin Concent 35, Red Cell Distribution Width 12.8, Platelet Count 151, Mean Platelet Volume 10.7H, Neutrophils (%) (Auto) 67, Lymphocytes (%) (Auto) 22 , Monocytes (%) (Auto) 11, Eosinophils (%) (Auto) 0, Basophils (%) (Auto) 0, Neutrophils # (Auto) 3.9, Lymphocytes # (Auto) 1.3, Monocytes # (Auto) 0.7, Eosinophils # (Auto) 0.0, Basophils # (Auto) 0.0, Sodium Level 138, Potassium Level 4.1, Chloride Level 110H, Carbon Dioxide Level 20L, Anion Gap 8, Blood Urea Nitrogen 12, Creatinine 0.79, Estimat Glomerular Filtration Rate > 60, BUN/ Creatinine Ratio 15, Glucose Level 96, Calcium Level 9.3 Microbiology 06/20/18 Blood Culture - Preliminary, Resulted No growth Assessment/Plan Assessment/Plan Assessment/Plan Cellulitis of foot left abscess left foot continue abx culture obtained by nursing earlier discussed risks and benefits of incision and drainage left foot abscess all other indicated procedures he wishes to proceed consent to be obtained npo after midnight. Clinical Quality Measures DVT/VTE Risk/Contraindication: Risk Factor Score Per Nursin RFS Level Per Nursing on Admit: 3=High Contraindications-Mechi: Other *list below* LENNY RUEDA DO Jun 21, 2018 15:59
[2018-06-21 16:05] VITALS: BP 136/72
[2018-06-21] MEDS ORDERED: TROUGH ORDER-PHARMACY XX NR (19:00)
[2018-06-21 20:05] VITALS: BP 132/73
[2018-06-22 00:12] VITALS: BP 135/80
[2018-06-22 05:34] LABS: BASOPHILS % (AUTO) 0 % (0-10); EOSINOPHILS % (AUTO) 0 % (0-10); HEMATOCRIT 40 % (40-54); HEMOGLOBIN 14.2 G/DL (13.3-17.7); LYMPHOCYTES # (AUTO) 1.4 X 10^3 (1.0-4.0); LYMPHOCYTES % (AUTO) 25 % (12-44); MEAN CORPUSCULAR HEMOGLOBIN 32 PG (25-34); MEAN CORPUSCULAR HGB CONC 35 G/DL (32-36); MEAN CORPUSCULAR VOLUME 91 FL (80-99); MEAN PLATELET VOLUME 10.7 FL (7.4-10.4); MONOCYTES # (AUTO) 0.6 X 10^3 (0.0-1.0); MONOCYTES % (AUTO) 11 % (0-12); NEUTROPHILS # (AUTO) 3.6 X 10^3 (1.8-7.8); NEUTROPHILS % (AUTO) 64 % (42-75); PLATELET COUNT 181 10^3/uL (130-400); RED BLOOD COUNT 4.46 10^6/uL (4.35-5.85); RED CELL DISTRIBUTION WIDTH 12.7 % (10.0-14.5); WHITE BLOOD COUNT 5.6 10^3/uL (4.3-11.0)
[2018-06-22 05:55] LABS: BUN/CREATININE RATIO 14; CALCIUM 9.3 MG/DL (8.5-10.1); CARBON DIOXIDE 23 MMOL/L (21-32); CHLORIDE 107 MMOL/L (98-107); GFR ESTIMATED > 60; GLUCOSE 91 MG/DL (70-105); POTASSIUM 3.9 MMOL/L (3.6-5.0); SODIUM 140 MMOL/L (135-145)
[2018-06-22] MEDS ORDERED: MIDAZOLAM 2 MG/2 ML (VERSED) VIAL ONE (07:15)
[2018-06-22] MEDS ORDERED: fentaNYL INJECTION 100 MCG/2 ML AMP ONE (07:15)
[2018-06-22] MEDS ORDERED: LACTATED RINGERS 1,000 ML IV PRN (07:23)
--- NOTE | 2018-06-22 07:36 | Progress Note (SOAP) ---
Subjective Time Seen by Provider: 07:30 Subjective/Events-last exam Cellulitis left foot. Abscess. To have incision and drainage today. Patient feeling okay Focused Exam Lactate Level 06/20/18 03:30: Lactic Acid Level 1.30 Objective Exam Vital Signs Date Time Temp Pulse Resp B/P (MAP) Pulse Ox O2 Delivery O2 Flow Rate FiO2 06/22/18 00:12 98.2 78 18 135/80 (98) 93 Room Air 06/21/18 20:05 98.9 79 20 132/73 (92) 94 Room Air 06/21/18 16:05 98.7 66 20 136/72 (93) 96 Room Air 06/21/18 12:00 98.0 60 20 143/72 (95) 98 Room Air 06/21/18 07:39 98.9 91 20 141/75 (97) 97 Room Air I & O 06/22/18 07:00 Intake Total 1732.5 ml Output Total 1800 ml Balance -67.5 ml Capillary Refill : Less Than 3 Seconds General Appearance: No Apparent Distress, WD/WN HEENT: Normal ENT Inspection, Pharynx Normal Neck: Full Range of Motion, Normal Inspection Respiratory: Chest Non Tender, No Accessory Muscle Use, No Respiratory Distress Cardiovascular: Regular Rate, Rhythm, No Murmur Gastrointestinal: non tender, soft Results Lab Laboratory Tests 06/22/18 04:55 Laboratory Tests 06/21/18 19:05: Vancomycin Level Trough 11.9 06/22/18 04:55: White Blood Count 5.6, Red Blood Count 4.46, Hemoglobin 14.2, Hematocrit 40, Mean Corpuscular Volume 91, Mean Corpuscular Hemoglobin 32, Mean Corpuscular Hemoglobin Concent 35, Red Cell Distribution Width 12.7, Platelet Count 181, Mean Platelet Volume 10.7H, Neutrophils (%) (Auto) 64, Lymphocytes (%) (Auto) 25 , Monocytes (%) (Auto) 11, Eosinophils (%) (Auto) 0, Basophils (%) (Auto) 0, Neutrophils # (Auto) 3.6, Lymphocytes # (Auto) 1.4, Monocytes # (Auto) 0.6, Eosinophils # (Auto) 0.0, Basophils # (Auto) 0.0, Sodium Level 140, Potassium Level 3.9, Chloride Level 107, Carbon Dioxide Level 23, Anion Gap 10, Blood Urea Nitrogen 11, Creatinine 0.80, Estimat Glomerular Filtration Rate > 60, BUN/ Creatinine Ratio 14, Glucose Level 91, Calcium Level 9.3 Microbiology 06/20/18 Blood Culture - Preliminary, Resulted No growth Assessment/Plan Assessment/Plan Assess & Plan/Chief Complaint Cellulitis of foot left. . 06/22/17. Cellulitis left foot. Abscess. Have incision and drainage today Clinical Quality Measures Admission Status Admission Dx Cellulitis left foot outpatient failure DVT/VTE Risk/Contraindication: Risk Factor Score Per Nursin RFS Level Per Nursing on Admit: 3=High Contraindications-Mechi: Other *list below* BEN JEAN BAPTISTE DO Jun 22, 2018 07:36
--- NOTE | 2018-06-22 08:00 | Progress Note-Pre Operative ---
Pre-Operative Progress Note H&P Reviewed The H&P was reviewed, patient examined and no changes noted. Date Seen by Provider: Jun 22, 2018 Time Seen by Provider: 07:39 Date H&P Reviewed: Jun 22, 2018 Time H&P Reviewed: 07:39 Pre-Operative Diagnosis: left foot abscess LENNY RUEDA DO Jun 22, 2018 08:00
[2018-06-22] MEDS: cefTRIAXone 1 GM/NS 50 ML IVPB IV SCH ×2 (08:10)
[2018-06-22] MEDS: VANCOMYCIN 1250 MG/NS 250 ML IVPB IV SCH ×4 (08:20→20:42)
[2018-06-22] MEDS ORDERED: SEVOFLURANE (ULTANE) 15 ML INHAL SOLN ONE (08:53)
[2018-06-22] MEDS ORDERED: LIDOCAINE PF 2% 5 ML (XYLOCAINE) VIAL ONE (08:53)
[2018-06-22] MEDS ORDERED: ONDANSETRON 4 MG/2 ML (SDV) Z0FRAN ONE (08:53)
[2018-06-22] MEDS ORDERED: proPOfol 200 MG/20 ML (DIPRIVAN) VIAL IV ONE (08:53)
[2018-06-22] MEDS ORDERED: morphine INJ 10 MG/ML 1ML (SYR OR VIAL) ONE (08:54)
[2018-06-22 09:55] VITALS: BP 131/81
[2018-06-22] MEDS: KETOROLAC 15 MG/ML VIAL IVP PRN (12:52)
--- NOTE | 2018-06-22 15:02 | Anesthesia-General Post-Op ---
General Patient Condition Mental Status/LOC: Same as Preop Cardiovascular: Satisfactory Nausea/Vomiting: Absent Respiratory: Satisfactory Pain: Controlled Complications: Absent Post Op Complications Complications None Follow Up Care/Instructions Patient Instructions None needed. Anesthesia/Patient Condition Patient Condition Patient is doing well, no complaints, stable vital signs, no apparent adverse anesthesia problems. No complications reported per nursing. JEAN GANN CRNA Jun 22, 2018 15:02
[2018-06-22 16:05] VITALS: BP 124/69
--- NOTE | 2018-06-22 20:36 | Progress Note-Post Operative ---
Post-Operative Progess Note Surgeon (s)/Vat Operator (s) Surgeon LENNY RUEDA DO Vat Operator: na Pre-Operative Diagnosis left foot abscess Post-Operative Diagnosis Same Procedure & Operative Findings Date of Procedure 06/22/18 Procedure Performed/Findings Incision and drainage and debridement of left foot abscess Anesthesia Type Gen. Estimated Blood Loss Estimated blood loss (mL): Minimal Specimens/Packing Specimens Removed Culture LENNY RUEDA DO Jun 22, 2018 20:36
[2018-06-23 00:15] VITALS: BP 130/67
[2018-06-23 04:15] VITALS: BP 137/78
--- NOTE | 2018-06-23 04:35 | OPERATIVE REPORT ---
DATE OF SERVICE: 06/22/2018 PREOPERATIVE DIAGNOSIS: Left foot abscess. POSTOPERATIVE DIAGNOSIS: Left foot abscess. PROCEDURE: Incision and drainage, and debridement of left foot. SURGEON: Lenny Ocasio DO. ANESTHESIA: General. ESTIMATED BLOOD LOSS: Minimal. COMPLICATIONS: None. INDICATIONS: The patient is a 67-year-old male who had cellulitis of left foot. He has developed an abscess between the 4th and 5th on the dorsal aspect of the foot. He was explained risks and benefits of procedure and wished to proceed with procedure. Consent was signed in the chart. PROCEDURE: The patient was taken to the operating suite, was prepped and draped in sterile fashion. Surgical pause was performed between the fourth and the fifth toe, big ulceration more on the fourth toe side with a track going up to the fluctuant area present on the dorsal aspect of the foot. This was then opened up with a 15 blade scalpel in total length of 3 cm. Purulent material was then erupted. Culture was obtained. The wound was begun to be irrigated. There was a lot of purulent material and there was also necrotic tissue present as well. The necrotic tissue was then begun to be removed, this was all necrotic subcutaneous tissue, which was both sharply debrided with 15 blade scalpel and using smooth pickups to remove. This was then irrigated with copious amounts of irrigation until the clean viable tissue was present. Once this was performed, the wound was then packed with quarter inch iodoform gauze and the area was then washed and dried and sterile bandage was applied. The patient tolerated the procedure well without any complications and taken to recovery room in stable condition. Job ID: [id number] DocumentID: [id number] Dictated Date: 06/22/2018 20:56:00 Market Gardener Date: 06/23/2018 04:35:03 Dictated By: LENNY OCASIO DO
[2018-06-23 05:51] LABS: HEMOGLOBIN 13.6 G/DL (13.3-17.7); MEAN PLATELET VOLUME 10.6 FL (7.4-10.4); RED BLOOD COUNT 4.29 10^6/uL (4.35-5.85); RED CELL DISTRIBUTION WIDTH 12.4 % (10.0-14.5); WHITE BLOOD COUNT 4.9 10^3/uL (4.3-11.0)
[2018-06-23 06:44] LABS: BUN/CREATININE RATIO 15; CALCIUM 9.2 MG/DL (8.5-10.1); CARBON DIOXIDE 25 MMOL/L (21-32); CHLORIDE 105 MMOL/L (98-107); CREATININE SERUM 0.86 MG/DL (0.60-1.30); GFR ESTIMATED > 60; GLUCOSE 103 MG/DL (70-105); POTASSIUM 4.2 MMOL/L (3.6-5.0); SODIUM 137 MMOL/L (135-145)
[2018-06-23 08:00] VITALS: BP 127/60
[2018-06-23] MEDS: VANCOMYCIN 1250 MG/NS 250 ML IVPB IV SCH ×4 (08:02→19:56)
--- NOTE | 2018-06-23 08:08 | Progress Note (SOAP) ---
Subjective Time Seen by Provider: 08:05 Subjective/Events-last exam Patient feeling okay today. Patient had I&D and debridement yesterday. Foot looks better. Patient has drain in Objective Exam Vital Signs Date Time Temp Pulse Resp B/P (MAP) Pulse Ox O2 Delivery O2 Flow Rate FiO2 06/23/18 04:15 98.7 73 18 137/78 (97) 96 Room Air 06/23/18 00:15 98.8 75 18 130/67 (88) 95 Room Air 06/22/18 16:05 98.1 64 20 124/69 (87) 93 Room Air 06/22/18 09:55 97.8 59 20 131/81 (98) 96 Room Air I & O 06/23/18 07:00 Intake Total 2312.5 ml Output Total 1750 ml Balance 562.5 ml Capillary Refill : Less Than 3 Seconds General Appearance: No Apparent Distress, WD/WN HEENT: Normal ENT Inspection Neck: Full Range of Motion, Normal Inspection Respiratory: Lungs Clear, No Accessory Muscle Use, No Respiratory Distress Cardiovascular: No Murmur Gastrointestinal: non tender, soft Results Lab Laboratory Tests 06/23/18 05:29 Laboratory Tests 06/23/18 05:29: White Blood Count 4.9, Red Blood Count 4.29L, Hemoglobin 13.6, Hematocrit 39L, Mean Corpuscular Volume 91, Mean Corpuscular Hemoglobin 32, Mean Corpuscular Hemoglobin Concent 35, Red Cell Distribution Width 12.4, Platelet Count 190, Mean Platelet Volume 10.6H, Sodium Level 137, Potassium Level 4.2, Chloride Level 105, Carbon Dioxide Level 25, Anion Gap 7, Blood Urea Nitrogen 13, Creatinine 0.86, Estimat Glomerular Filtration Rate > 60, BUN/Creatinine Ratio 15, Glucose Level 103, Calcium Level 9.2 Microbiology 06/20/18 Blood Culture - Preliminary, Resulted No growth 06/21/18 MRSA Screen - Final, Complete MRSA not isolated 06/22/18 Gram Stain, Resulted Pending 06/22/18 Anaerobic Culture, Resulted Pending 06/22/18 Surgical Culture - Preliminary, Resulted Sent To [facility] Assessment/Plan Assessment/Plan Assess & Plan/Chief Complaint Cellulitis of foot left. . 06/22/17. Cellulitis left foot. Abscess. Have incision and drainage today. . 06/23/18. Cellulitis left foot. Abscess. Patient had I&D and debridement yesterday. Foot improving Clinical Quality Measures Admission Status Admission Dx Cellulitis left foot outpatient failure DVT/VTE Risk/Contraindication: Risk Factor Score Per Nursin RFS Level Per Nursing on Admit: 3=High Contraindications-Mechi: Other *list below* BEN JEAN BAPTISTE DO Jun 23, 2018 08:08
[2018-06-23] MEDS: cefTRIAXone 1 GM/NS 50 ML IVPB IV SCH ×2 (09:35)
[2018-06-23] MEDS: fentaNYL INJECTION 100 MCG/2 ML AMP IVP PRN (11:02)
[2018-06-23] MEDS ORDERED: HYDROcodone/APAP 5 MG/325 MG (LORTAB) TAB PO PRN (12:00)
[2018-06-23 16:00] VITALS: BP 137/69
--- NOTE | 2018-06-23 17:46 | Progress Note ---
Subjective Date Seen by Provider: Jun 23, 2018 Time Seen by Provider: 17:41 Subjective/Events-last exam foot doing better. pain controlled. cultures staph aureus denies any other issues. denies n/v fever sweats chills shortness of breath or chest pain. Objective Exam Vital Signs Date Time Temp Pulse Resp B/P (MAP) Pulse Ox O2 Delivery O2 Flow Rate FiO2 06/23/18 16:00 99.2 67 18 137/69 (91) 94 Room Air 06/23/18 08:00 98.6 62 18 127/60 (82) 95 Room Air 06/23/18 04:15 98.7 73 18 137/78 (97) 96 Room Air 06/23/18 00:15 98.8 75 18 130/67 (88) 95 Room Air I & O 06/23/18 07:00 Intake Total 2312.5 ml Output Total 1750 ml Balance 562.5 ml Capillary Refill : Less Than 3 Seconds General Appearance: No Apparent Distress, WD/WN HEENT: Normal ENT Inspection Neck: Full Range of Motion, Normal Inspection Respiratory: Lungs Clear, No Accessory Muscle Use, No Respiratory Distress Cardiovascular: No Murmur Gastrointestinal: non tender, soft Extremity: Other (less erythema and swelling distal foot, wound bed clean) Neurologic/Psychiatric: Alert, Oriented x3, No Motor/Sensory Deficits, Normal Mood/Affect, care consultant II-XII Norm as Tested Skin: Warm/Dry, Erythema Results Lab Laboratory Tests 06/23/18 05:29: White Blood Count 4.9, Red Blood Count 4.29L, Hemoglobin 13.6, Hematocrit 39L, Mean Corpuscular Volume 91, Mean Corpuscular Hemoglobin 32, Mean Corpuscular Hemoglobin Concent 35, Red Cell Distribution Width 12.4, Platelet Count 190, Mean Platelet Volume 10.6H, Sodium Level 137, Potassium Level 4.2, Chloride Level 105, Carbon Dioxide Level 25, Anion Gap 7, Blood Urea Nitrogen 13, Creatinine 0.86, Estimat Glomerular Filtration Rate > 60, BUN/Creatinine Ratio 15, Glucose Level 103, Calcium Level 9.2 Microbiology 06/20/18 Blood Culture - Preliminary, Resulted No growth 06/21/18 MRSA Screen - Final, Complete MRSA not isolated 06/22/18 Gram Stain - Final, Resulted 06/22/18 Anaerobic Culture, Resulted Pending 06/22/18 Surgical Culture - Final, Resulted Staphylococcus aureus See Comments Assessment/Plan Assessment/Plan Assessment/Plan Cellulitis of foot left. abscess s/p i and d and debridement continue medical management irrigate and pack daily Clinical Quality Measures DVT/VTE Risk/Contraindication: Risk Factor Score Per Nursin RFS Level Per Nursing on Admit: 3=High Contraindications-Mechi: Other *list below* LENNY RUEDA DO Jun 23, 2018 17:46
[2018-06-23 23:02] VITALS: BP 131/58
[2018-06-24 07:47] VITALS: BP 129/74
[2018-06-24] MEDS ORDERED: TRIM/SULFAMETH 160/800 (SEPTRA DS) TAB PO SCH (08:13)
--- NOTE | 2018-06-24 08:14 | Progress Note (SOAP) ---
Subjective Time Seen by Provider: 08:10 Subjective/Events-last exam Foot doing better by the toe. Abscess better MRSA Objective Exam Vital Signs Date Time Temp Pulse Resp B/P (MAP) Pulse Ox O2 Delivery O2 Flow Rate FiO2 06/24/18 07:47 98.3 60 20 129/74 (92) 96 Room Air 06/23/18 23:02 98.6 66 20 131/58 (82) 96 Room Air 06/23/18 16:00 99.2 67 18 137/69 (91) 94 Room Air I & O 06/24/18 07:00 Intake Total 2572.5 ml Output Total 2630 ml Balance -57.5 ml Capillary Refill : Less Than 3 Seconds General Appearance: No Apparent Distress, WD/WN Neck: Normal Inspection Respiratory: No Accessory Muscle Use, No Respiratory Distress Gastrointestinal: non tender, soft Results Lab Microbiology 06/20/18 Blood Culture - Preliminary, Resulted No growth 06/21/18 MRSA Screen - Final, Complete MRSA not isolated 06/22/18 Gram Stain - Final, Resulted 06/22/18 Anaerobic Culture, Resulted Pending 06/22/18 Surgical Culture - Final, Resulted Staphylococcus aureus See Comments Assessment/Plan Assessment/Plan Assess & Plan/Chief Complaint Cellulitis of foot left. . 06/22/17. Cellulitis left foot. Abscess. Have incision and drainage today. . 06/23/18. Cellulitis left foot. Abscess. Patient had I&D and debridement yesterday. Foot improving. . 06/24/18. Cellulitis left but by toes. Abscess doing better. Has MRSA sensitive to Bactrim and doxycycline Clinical Quality Measures Admission Status Admission Dx Cellulitis left foot outpatient failure DVT/VTE Risk/Contraindication: Risk Factor Score Per Nursin RFS Level Per Nursing on Admit: 3=High Contraindications-Mechi: Other *list below* BEN JEAN BAPTISTE DO Jun 24, 2018 08:14
[2018-06-24] MEDS: VANCOMYCIN 1250 MG/NS 250 ML IVPB IV SCH ×2 (09:01)
--- NOTE | 2018-06-24 13:44 | D/C HH Face to Face Order ---
D/C Face to Face Orders Instructions for Patient Patient Instructions/FollowUp: Daily dressing change. Irrigate with saline then pack with 1/4 inch Iodaform gauze. Then place Kerlex over it and secure with tape. Follow up with Dr. Ocasio in [address] Johnson in 1 week. Physician to follow Patient: Dr. Johnson/Dr. Ocasio Discharge Diet for Home: Regular Diet Patient Data-Allergies,Ht & Wt Patient Allergies: Coded Allergies: No Known Drug Allergies (Unverified , 10/18/10) Height (Feet): 5 Height (Inches): 6.00 Weight (Pounds): 172 Weight (Ounces): 7.0 Home Health Need/Face to Face Date of Face to Face: Jun 24, 2018 Clinical Findings: Pain with ambulation, Wound infection I have seen Pt [id number]: Yes Discharged To: Home Diagnosis/Conditions: left foot abscess/cellulitis MRSA + Patient is Homebound due to: Pain w/ambulation Homebound Status Due to the above stated illness, injury or surgical procedure (medical condition or diagnosis) and associated clinical findings, the patient is homebound because of his/her inability to leave home except with aid of a supportive device and/or person AND leaving the home requires a considerable and taxing effort or is medically contraindicated. Pt req the following assistanc: Aid of another person Home Health Nursing Orders Home Health Services Order: Nursing Services, Wound Care-Eval/Treat Home Health Infusion Therapy Line Start Date: Jun 20, 2018 Line Start Time: 0330 Certify Stmt I certify that this patient is under my care and that I, a nurse practitioner or a physician; a ex assistant/program director working with me, had a face to face encounter that - meets the physician face to face encounter requirements with this patient as dated. LENNY OCASIO DO Jun 24, 2018 13:44
[2018-06-24] MEDS ORDERED: ACHD5005 PO (13:46)
[2018-06-24] MEDS ORDERED: Trimethoprim/Sulfamethoxazole PO (13:46)
[2018-06-24 14:52] VITALS: BP 129/74
== END 2018-06-24 15:00 | disposition home health service (06) | DRG 571 ==
LOC: EDUNIT# 03:07 → ER 03:10 → 4TH 06:12
PROVIDERS: ADMIT Internal Medicine; ATTEND Family Medicine
PROC: 0JBR0ZZ Excision of Left Foot Subcutaneous Tissue and Fascia, Open Approach (ICD-10-PCS; principal; 2018-06-22 08:15)
DX: L02.612 Cutaneous abscess of left foot (principal); L03.116 Cellulitis of left lower limb; B95.62 Methicillin resistant Staphylococcus aureus infection as the cause of diseases classified elsewhere; F41.9 Anxiety disorder, unspecified; G47.9 Sleep disorder, unspecified
CPT/HCPCS: 36415; 73630; 80048; 80053; 80202; 83605; 85025; 85027; 86141; 87040; 87070; 87075; 87077; 87081; 87186; 87205; 96365; 96375

== ENCOUNTER 2021-05-17 20:58 | Emergency (ER) | payer MEDICARE, MEDICAID ==
[~2021-05-17] VITALS: Ht 165 cm; Wt 75.0 kg
[~2021-05-17 20:58] MED LIST changes: +ACHD5005 PO; +CEPH500C PO; +Trimethoprim/Sulfamethoxazole PO
[2021-05-17 21:07] VITALS: BP 151/90
[2021-05-17] MEDS ORDERED: AMIT150T (21:07)
--- NOTE | 2021-05-17 21:21 | ED Head Injury ---
General Chief Complaint: Laceration Stated Complaint: LAC TOP OF HEAD Nursing Triage Note: SCALP LACERATION. Source: patient Exam Limitations: no limitations History of Present Illness Date Seen by Provider: May 17, 2021 Time Seen by Provider: 21:15 Initial Comments Patient is a 70-year-old male who presents to the emergency department with a chief complaint of a scalp laceration. Patient is very vague about his mechanism of injury but states that a piece of steel hit him in the top of the head. Patient states that he did not have a loss of consciousness. He m aintains his only medication is amitriptyline for sleep at night, he is not anticoagulated and does not take aspirin daily. No other complaints of headache, vision changes, nausea vomiting or any other issues since he hit his head about 3 hours ago. All other review of systems reviewed and negative except as stated. Occurred: this evening (3 hours prior to arrival) Severity: mild Location: frontal Method of Injury: direct blow Loss of Consciousness: no loss of consciousness Associated Systoms: Denies Symptoms Allergies and Home Medications Allergies Coded Allergies: No Known Drug Allergies (Unverified , 10/18/10) Patient Home Medication List Home Medication List Reviewed: Yes Review of Systems Review of Systems Constitutional: see HPI Eyes: No Symptoms Reported Ears, Nose, Mouth, Throat: no symptoms reported Respiratory: no symptoms reported Cardiovascular: no symptoms reported Gastrointestinal: no symptoms reported Genitourinary: no symptoms reported Skin: other (Laceration) Psychiatric/Neurological: No Symptoms Reported All Other Systems Reviewed Negative Unless Noted: Yes Past Utdvsjo-[id number]-[id number] Hx Patient Social History Tobacco Use?: No Use of E-Cig and/or Vaping dev: No Substance use?: No Substance frequency: Once in a while Alcohol Use?: Yes Alcohol Frequency: Once in a while Pt feels they are or have been: No Immunizations Up To Date Tetanus Booster (TDap): More than 5yrs Past Medical History Surgeries: Yes (NOSE RECONSTRUCTION) Respiratory: No Cardiac: No Neurological: No Reproductive Disorders: No Gastrointestinal: No Musculoskeletal: Yes Back Injury Endocrine: No Cancer: No Psychosocial: Yes Sleep Difficulties, Anxiety Integumentary: No Blood Disorders: No Family Medical History FH: lung cancer 19 MOTHER No Pertinent Family Hx Physical Exam Vital Signs Vital Signs - First Documented 05/17/21 21:07 Temp 36.4 Pulse 97 Resp 18 B/P (MAP) 151/90 (110) Pulse Ox 96 O2 Delivery Room Air Capillary Refill : Less Than 3 Seconds Height, Weight, BMI Height: 5'6.00" Weight: 172lbs. 7.0oz. [id number]; 27.00 BMI Method:Stated General Appearance: WD/WN HEENT: PERRL/EOMI, TMs normal Neck: supple, normal inspection Cardiovascular: regular rate, rhythm Respiratory: no respiratory distress, no accessory muscle use Extremities: normal range of motion, non-tender, normal inspection Psychiatric: alert, oriented x 3 [place] Nerves: normal hearing, normal speech, PERRL Coordination/Gait: normal gait Motor/Sensory: no motor deficit, no sensory deficit Skin: normal color, warm/dry, other (3 cm superficial laceration noted in the hairline just to the left of midline frontal scalp. No active bleeding.) [place] Coma Score Best Eye Response: (4) Open Spontaneously Best Verbal Response: (5) Oriented Best Motor Response: (6) Obeys Commands Procedures/Interventions Wound Location: Scalp Wound Length (cm): 3 Wound's Depth, Shape: superficial, linear Wound Explored: clean Irrigated w/ Saline (ccs): 100 Betadine Prep?: No Staple Repair: Stapler 35W (3) Layer Closure?: 1 Sterile Dressing Applied?: No Progress/Results/Core Measures Results/Orders Vital Signs/I&O 05/17/21 21:07 Temp 36.4 Pulse 97 Resp 18 B/P (MAP) 151/90 (110) Pulse Ox 96 O2 Delivery Room Air Blood Pressure Mean: 110 Departure Impression Primary Impression: Scalp laceration Qualified Codes: S01.01XA - Laceration without foreign body of scalp, initial encounter Additional Impression: Minor head injury Qualified Codes: S09.90XA - Unspecified injury of head, initial encounter Disposition: HOME, SELF-CARE Condition: Stable Departure-Patient Inst. Decision time for Depature: 21:24 Referrals: [facility] (PCP/Family) Primary Care Physician Patient Instructions: Laceration Repair With [place] ([place]) Add. Discharge Instructions: Please come back in 7 to 10 days for staple removal. Return to the emergency room sooner if you notice increasing swelling, redness, drainage of pus from the wound or have a fever. Tylenol or ibuprofen as needed for headache/pain. Follow-up with your primary care physician as needed. TAYLOR CASTANEDA MD May 17, 2021 21:21
== END 2021-05-17 21:31 | disposition home or self-care (01) ==
LOC: EDUNIT# 20:58 → ER 20:59
DX: S01.01XA Laceration without foreign body of scalp, initial encounter (principal); S09.90XA Unspecified injury of head, initial encounter; F41.9 Anxiety disorder, unspecified; Z79.899 Other long term (current) drug therapy; W22.8XXA Striking against or struck by other objects, initial encounter
CPT/HCPCS: 12002

== ENCOUNTER 2021-05-25 14:34 | Emergency (ER) | payer MEDICARE, MEDICAID ==
[~2021-05-25] VITALS: Ht 165 cm; Wt 72.0 kg
[~2021-05-25 14:34] MED LIST changes: +AMIT150T
[2021-05-25 14:47] VITALS: BP 116/74
== END 2021-05-25 14:51 | disposition home or self-care (01) ==
LOC: EDUNIT# 14:34 → ER 14:35
DX: Z48.02 Encounter for removal of sutures (principal)

== ENCOUNTER 2023-01-03 19:30 | Inpatient (IN) | payer MEDICARE, MEDICAID ==
[~2023-01-03] VITALS: Ht 165 cm; Wt 77.4 kg
[~2023-01-03 19:30] MED LIST changes: -AMIT150T; +AMIT150T PO
[2023-01-03 19:46] LABS: HEMOGLOBIN 13.5 g/dL (13.3-17.7); MEAN CORPUSCULAR HGB CONC 34 g/dL (32-36); MEAN CORPUSCULAR VOLUME 91 fL (80-99)
[2023-01-03 19:48] LABS: BASOPHILS # (AUTO) 0.1 10^3/uL (0.0-0.1); BASOPHILS % (AUTO) 1 % (0-10); EOSINOPHILS % (AUTO) 0 % (0-10); HEMATOCRIT 39 % (40-54); LYMPHOCYTES # (AUTO) 0.4 10^3/uL (1.0-4.0); LYMPHOCYTES % (AUTO) 4 % (12-44); MEAN CORPUSCULAR HEMOGLOBIN 31 pg (25-34); MEAN PLATELET VOLUME 11.1 fL (9.0-12.2); MONOCYTES # (AUTO) 0.2 10^3/uL (0.0-1.0); MONOCYTES % (AUTO) 2 % (0-12); NEUTROPHILS # (AUTO) 10.8 10^3/uL (1.8-7.8); NEUTROPHILS % (AUTO) 92 % (42-75); PLATELET COUNT 114 10^3/uL (130-400); WHITE BLOOD COUNT 11.7 10^3/uL (4.3-11.0)
--- NOTE | 2023-01-03 19:50 | ED Chest Pain ---
General Chief Complaint: Chest Pain Stated Complaint: CHEST PAIN Nursing Triage Note: pt arrived via [facility] ems with complaints of left sided chest pain, vertigo and SOB with 02 at 88% RA after pt took a hot bath. pt states that he slipped and fell in the bathroom after getting out of the shower. pt was put on 4L by ems upon arrival. Source: patient Exam Limitations: no limitations (MICHAEL NELSON) History of Present Illness Date Seen by Provider: Jan 03, 2023 Time Seen by Provider: 19:46 Initial Comments Patient is a 72-year-old male who presents ED with left-sided chest pain. This started about 1 hour ago after getting out of a hot bath. States he started having this left-sided chest pressure rated 8 out of 10. He had some associated shortness of breath. Patient was brought to the ED by EMS. EMS noted sinus tachycardia with oxygen level around 85 to 88% on room air. Was placed on 2 L with improvement to 92%. Denies history of coronary artery disease, CHF, COPD. He reports having some pain in his neck over the past 2 days. He reports dizziness when standing. Reports unsteady gait. Denies history of similar symptoms in the past. He has had a mild cough over the past few days but denies of any wheezing. Denies history of smoking, hyperlipidemia, stroke, recent travels or surgeries, leg swelling. Rates current pain 3 out of 10. Was given a full aspirin 324 mg by EMS in route. Denies fever, chills, body aches, abdominal pain, vomiting, nausea, diarrhea, ear ringing, hearing loss. (MICHAEL NELSON) Allergies and Home Medications Allergies Coded Allergies: No Known Drug Allergies (Unverified , 10/18/10) Patient Home Medication List Home Medication List Reviewed: Yes (MICHAEL NELSON) Amitriptyline HCl (Amitriptyline HCl) 150 Mg Tablet, (Reported) Entered as Reported by: CORNELIUS YING on 05/17/212106 Review of Systems Review of Systems Constitutional: No chills, No diaphoresis, No fever, No malaise, No weakness EENTM: No Blurred Vision, No Eye Pain, No Ear Pain, No Mouth Pain Respiratory: Cough; Denies Orthopnea; SOA With Exertion Cardiovascular: Chest Pain Gastrointestinal: Denies Abdominal Pain, Denies Diarrhea, Denies Nausea, Denies Vomiting Genitourinary: Denies Burning Musculoskeletal: No back pain, No joint pain Skin: No change in color, No change in hair/nails (MICHAEL NELSON) All Other Systems Reviewed Negative Unless Noted: Yes (MICHAEL NELSON) Past Ppjfopd-Unyrab-Kgquys Hx Patient Social History Tobacco Use?: No Substance use?: No Alcohol Use?: No (MICHAEL NELSON) Immunizations Up To Date Tetanus Booster (TDap): More than 5yrs (MICHAEL NELSON) Past Medical History Surgeries: Yes (NOSE RECONSTRUCTION) Respiratory: No Cardiac: No Neurological: No Reproductive Disorders: No Gastrointestinal: No Musculoskeletal: Yes Back Injury Endocrine: No Cancer: No Psychosocial: Yes Sleep Difficulties, Anxiety Integumentary: No Blood Disorders: No (MICHAEL NELSON) Family Medical History FH: lung cancer 19 MOTHER No Pertinent Family Hx (MICHAEL NELSON) Physical Exam Vital Signs Vital Signs - First Documented 01/03/23 01/03/23 19:30 21:44 Temp 37.6 Pulse 127 B/P (MAP) 106/78 (87) Pulse Ox 91 O2 Delivery Nasal Cannula O2 Flow Rate 2.00 FiO2 65 Capillary Refill : Height, Weight, BMI Height: 5'6.00" Weight: 172lbs. 7.0oz. 78.646058xk; 26.00 BMI Method:Stated General Appearance: No Apparent Distress, WD/WN HEENT: PERRL/EOMI, TMs Normal, Normal ENT Inspection, Pharynx Normal Neck: Full Range of Motion, Normal Inspection, Non Tender, Supple Respiratory: Chest Non Tender, Wheezing, Other (Slightly disminished bilateral) Cardiovascular: No Edema, No Gallop, No JVD, Tachycardia Gastrointestinal: Normal Bowel Sounds, No Organomegaly, No Pulsatile Mass Rectal: Normal Exam, Normal Rectal Tone Extremity: Normal Capillary Refill, Normal Inspection, Normal Range of Motion, Non Tender Neurologic/Psychiatric: Alert, Oriented x3, No Motor/Sensory Deficits, Normal Mood/Affect, dry heat room attendant II-XII Norm as Tested Skin: Normal Color, Warm/Dry (MICHAEL NELSON) Focused Exam Lactate Level 01/03/23 20:45: Lactic Acid Level 3.45*H (MICHAEL NELSON) Lactic Acid Level Laboratory Tests Test 01/03/23 20:45 Lactic Acid Level 3.45 MMOL/L (0.50-2.00) *H (MICHAEL NELSON) Critical Care Note Critical Care Start Time: 20:30 Stop Time: 21:10 Total Time (minutes) 40 minutes Progress Critical care time secondary to hypoxia with a heart rate of 124 bpm, sepsis, pneumonia Critical time secondary to NSTEMI with elevated troponin, chest pain. (MICHAEL NELSON) Progress/Results/Core Measures Results/Orders Lab Results Laboratory Tests Test 01/03/23 19:38 01/03/23 20:22 01/03/23 20:45 01/03/23 21:00 Range/Units White Blood Count 11.7 H 4.3-11.0 10^3/uL Red Blood Count 4.30 4.30-5.52 10^6/uL Hemoglobin 13.5 13.3-17.7 g/dL Hematocrit 39 L 40-54 % Mean Corpuscular Volume 91 80-99 fL Mean Corpuscular Hemoglobin 31 25-34 pg Mean Corpuscular Hemoglobin Concent 34 32-36 g/dL Red Cell Distribution Width 13.2 10.0-14.5 % Platelet Count 114 L 130-400 10^3/uL Mean Platelet Volume 11.1 9.0-12.2 fL Immature Granulocyte % (Auto) 1 % Neutrophils (%) (Auto) 92 H 42-75 % Lymphocytes (%) (Auto) 4 L 12-44 % Monocytes (%) (Auto) 2 0-12 % Eosinophils (%) (Auto) 0 0-10 % Basophils (%) (Auto) 1 0-10 % Neutrophils # (Auto) 10.8 H 1.8-7.8 10^3/uL Lymphocytes # (Auto) 0.4 L 1.0-4.0 10^3/uL Monocytes # (Auto) 0.2 0.0-1.0 10^3/uL Eosinophils # (Auto) 0.0 0.0-0.3 10^3/uL Basophils # (Auto) 0.1 0.0-0.1 10^3/uL Immature Granulocyte # (Auto) 0.2 H 0.0-0.1 10^3/uL Neutrophils % (Manual) 46 % Lymphocytes % (Manual) 6 % Monocytes % (Manual) 1 % Metamyelocytes % 16 % Myelocytes % 3 % Band Neutrophils 28 % Platelet Estimate SLIGHTLY DECREASED Clumped Platelets RARE Percent Immature Platelet Fraction 5.2 0.0-7.6 % Blood Morphology Comment NORMAL Prothrombin Time 17.8 H 12.2-14.7 SEC INR Comment 1.4 0.8-1.4 Activated Partial Thromboplast Time 37 H 24-35 SEC D-Dimer 2.60 H 0.00-0.49 UG/ML Sodium Level 134 L 135-145 MMOL/L Potassium Level 4.5 3.6-5.0 MMOL/L Chloride Level 101 98-107 MMOL/L Carbon Dioxide Level 18 L 21-32 MMOL/L Anion Gap 15 H 5-14 MMOL/L Blood Urea Nitrogen 49 H 7-18 MG/DL Creatinine 2.65 H 0.60-1.30 MG/DL Estimat Glomerular Filtration Rate 25 BUN/Creatinine Ratio 18 Glucose Level 199 H 70-105 MG/DL Calcium Level 8.8 8.5-10.1 MG/DL Corrected Calcium 9.4 8.5-10.1 MG/DL Magnesium Level 1.6 1.6-2.4 MG/DL Total Bilirubin 1.6 H 0.1-1.0 MG/DL Aspartate Amino Transf (AST/SGOT) 39 H 5-34 U/L Alanine Aminotransferase (ALT/SGPT) 18 0-55 U/L Alkaline Phosphatase 60 40-136 U/L Myoglobin 689.5 H 10.0-92.0 NG/ML Troponin I 0.051 H <0.028 NG/ML C-Reactive Protein High Sensitivity 30.79 H 0.00-0.50 MG/DL B-Type Natriuretic Peptide 235.6 H <100.0 PG/ML Total Protein 6.6 6.4-8.2 GM/DL Albumin 3.3 3.2-4.5 GM/DL Influenza Type A (RT-PCR) Not Detected Not Detecte Influenza Type B (RT-PCR) Not Detected Not Detecte SARS-CoV-2 RNA (RT-PCR) Not Detected Not Detecte Lactic Acid Level 3.45 *H 0.50-2.00 MMOL/L Blood Gas Puncture Site UNK Blood Gas Patient Temperature 37.6 Arterial Blood pH 7.39 7.37-7.43 Arterial Blood Partial Pressure CO2 36 35-45 MMHG Arterial Blood Partial Pressure O2 69 L 79-93 MMHG Arterial Blood HCO3 21 L 23-27 MMOL/L Arterial Blood Total CO2 22.2 21.0-31.0 MMOL/L Arterial Blood Oxygen Saturation 93 L 94-100 % Arterial Blood Base Excess -3.0 L -2.5-2.5 MMOL/L Ta Test UNK Blood Gas Ventilator Setting NA Blood Gas Inspired Oxygen UNK My Orders Orders - MICHAEL NELSON PA Cbc With Automated Diff (01/03/23 19:42) Magnesium (01/03/23 19:42) Chest 1 View, Ap/Pa Only (01/03/23 19:42) Ekg Tracing (01/03/23 19:42) Comprehensive Metabolic Panel (01/03/23 19:42) Myoglobin Serum (01/03/23 19:42) Protime With Inr (01/03/23 19:42) Partial Thromboplastin Time (01/03/23 19:42) O2 (01/03/23 19:42) Monitor-Rhythm Ecg Trace Only (01/03/23 19:42) Ed Iv/Invasive Line Start (01/03/23 19:42) Bnp [place] (01/03/23 19:42) Fibrin Degradation Products (01/03/23 19:42) Troponin I [place] (01/03/23 19:42) Manual Differential (01/03/23 19:38) Hs C Reactive Protein (01/03/23 19:52) Ns Iv 1000 Ml (Sodium Chloride 0.9%) (01/03/23 20:13) Blood Culture (01/03/23 20:13) Lactic Acid Analyzer (01/03/23 20:13) Ceftriaxone 1 Gm Pre-Mix (Rocephin 1 Gm (01/03/23 20:13) Covid 19 Inhouse Test (01/03/23 20:13) Influenza A And B By Pcr (01/03/23 20:13) Blood Culture (01/03/23 20:21) Arterial Blood Gas (01/03/23 20:30) Azithromycin Injection (Zithromax Inject (01/03/23 20:41) Ed Admission (Communication) (2/26/23 20:42) Albuterol/Ipra Inhalation Soln (Duoneb I (01/03/23 22:00) Svn Small Volume Nebulizer (01/03/23 21:51) Enoxaparin Injection (Lovenox Injection) (01/03/23 22:00) Ns Iv 1000 Ml (Sodium Chloride 0.9%) (01/03/23 22:10) Medications Given in ED Current Medications Medications Dose Ordered Sig/Radha Route Start Time Stop Time Status Last Admin Dose Admin Albuterol/ Ipratropium 3 ml ONCE ONCE INH 01/03/23 22:00 01/03/23 22:01 DC 01/03/23 22:07 3 ML Enoxaparin Sodium 70 mg ONCE ONCE SC 01/03/23 22:00 01/03/23 22:01 DC 01/03/23 22:07 70 MG Vital Signs/I&O 01/03/23 01/03/23 01/03/23 01/03/23 19:30 19:38 21:00 21:30 Temp 37.6 Pulse 127 B/P (MAP) 106/78 (87) Pulse Ox 91 91 89 89 O2 Delivery Nasal Cannula Nasal Cannula Nasal Cannula OxyMask O2 Flow Rate 2.00 2.00 3.00 6.00 01/03/23 21:44 Pulse Ox 93 O2 Delivery Vapotherm O2 Flow Rate 25.00 FiO2 65 Blood Pressure Mean: 87 (MICHAEL NELSON) Comment Sinus tachycardia, atrial premature complexes, left atrial enlargement, 127 bpm, QRS duration 114 MS, QTc 437 MS. (MICHAEL NELSON) Departure Communication (Admissions) Time/Spoke to Admitting Phy: 20:[address] Brito cardiology. Recommended Lovenox 1 mg/kg renal dosing for PE prophylactically and elevated troponin, baby aspirin per day, 25 mg metoprolol daily, morphine 2 mg for pain Discussed patient with hospitalist for [facility] Dr. Vasquez who accepts patient to the ICU for hypoxia. ABG was recommended and ordered. Patient was given azithromycin with Rocephin for potential pneumonia. (MICHAEL NELSON) Communication (PCP) Patient on arrival sinus tachycardia, tachypneic 30 breaths/min. Heart rate at 121. No ST elevation, depression on EKG. Was given full aspirin 324 mg by EMS in route. Patient was placed on 2 L secondary to hypoxia at home of 85 to 88% on room air. He does not wear oxygen at home. Denies smoking, COPD, coronary artery disease, CHF. No evidence of leg swelling. Reports a cough over the past few days. Reports dizziness/vertigo symptoms over the past 5 days. Neck pain over the past 2 days. Concerning for cardiac etiology versus pneumonia versus PE. Cardiac work-up with CBC, CMP, BNP, troponin, chest x-ray was ordered. Patient with a white blood count 11.7. Platelet count of 114. Creatinine 2.65, GFR 25 with new onset acute kidney injury. Patient was started on a liter of fluid. Initial chest x-ray read by myself concerning for pneumonia and left lower lobe. Radiologist's overread shows pneumonitis left lower lobe with a possible small pleural effusion. No evidence of cardiomegaly. Blood cultures were ordered with lactic acid. Due to the results of the chest josefina, Patient was given Rocephin and azithromycin. Toponin returned at 0.051. Elevated BNP 235, CRP 30 and a D-dimer 2.60. Not able to order CT angio of the chest secondary to kidney function. Concerning for NSTEMI likely secondary to pneumonia versus PE versus acute kidney injury. Patient was started on Rocephin and azithromycin. Discussed patient with Dr. Brito biofuels technology manager. Recommends Lovenox 1 mg/kg per renal function CRCL 26 prophylactically for elevated troponin and potential PE, baby aspirin 81mg daily, beta-ayaan 25 mg metoprolol, morphine for pain. Patient was discussed with hospitalist Dr. Vasquez [facility] who recommended ABG. ABG showed pH of 7.39, PO2 69, bicarb 21 further evaluation with VQ scan. Patient denies history of COPD, smoking, diabetes, high cholesterol, hypertension, blood disorder. No further cardiac evaluation according to patient. Reviewing old history no evidence of cardiac work-up. Critical care time of 40 minutes secondary to treatment with aggressive fluid resuscitation for tachycardia, sepsis, pneumonia. Treatment with fluid resuscitation 30ml/kg, antibiotics of Rocephin and azithromycin for community-acquired pneumonia. NSTEMI secondary to elevated troponin 0.051, chest pain, requiring Lovenox 1 mg/kg Renal dosing Patient oxygen dropped to about 89% on 2 L. Increased to 4 L remained around 90%. Patient was placed on a Vapotherm at a oxygen of 75 and pressure of 40 with improvement to 93. Patient was given DuoNeb breathing treatment. Improvement of his tachypnea. Patient was started on a second liter of fluid. Discussed patient with Dr. Joseph ED ICU physician regarding patient. Discussed with ICU physician regarding the change from nasal cannula to vapotherm. Continue monitor but patient may require BiPAP (MICHAEL NELSON) Impression Primary Impression: Hypoxia Additional Impressions: NSTEMI (non-ST elevated myocardial infarction) SANDY (acute kidney injury) Sepsis Pneumonia Disposition: ADMITTED INPATIENT Condition: Stable Admissions Decision to Admit Reason: Admit from ER (General) Decision to Admit/Date: Jan 03, 2023 Time/Decision to Admit Time: 20:42 (MICHAEL NELSON) Departure-Patient Inst. Referrals: [facility] (PCP/Family) Primary Care Physician ATTENDING PHYSICIAN NOTE: I was physically present as attending physician in the emergency department during the care of this patient. I discussed this case with RAS Landaverde. We reviewed labs and imaging studies. We discussed empiric treatment for possible PE with a therapeutic dose of Lovenox. Pulmonary status was marginal with Vapotherm. I recommended adjusting Vapotherm settings and administering a DuoNeb. I suggested BiPAP may be needed if those measures were not successful in improving respiratory status. I did not personally interview or examine this patient. I was not otherwise directly involved in the decision making or delivery of care for this patient. (CLOVER HARRIS MD) MICHAEL NELSON Jan 03, 2023 19:50 CLOVER HARRIS MD Jan 04, 2023 05:21
[2023-01-03 19:58] LABS: INR 1.4 (0.8-1.4); PROTHROMBIN TIME PATIENT 17.8 SEC (12.2-14.7)
[2023-01-03 20:08] LABS: ALBUMIN 3.3 GM/DL (3.2-4.5); BILIRUBIN,TOTAL 1.6 MG/DL (0.1-1.0); CALCIUM 8.8 MG/DL (8.5-10.1); CREATININE SERUM 2.65 MG/DL (0.60-1.30); MAGNESIUM 1.6 MG/DL (1.6-2.4); POTASSIUM 4.5 MMOL/L (3.6-5.0); TOTAL PROTEIN 6.6 GM/DL (6.4-8.2)
--- NOTE | 2023-01-03 20:10 | Diagnostic Imaging Report ---
EXAM: Chest 1 view, AP/PA only INDICATION: Chest pain. COMPARISON: None. FINDINGS: Airspace opacity in the left lung base. Probable small left pleural effusion. Normal heart size and central pulmonary vascularity. No pneumothorax. No acute osseous finding. IMPRESSION: Airspace opacity in the left lung base suspicious for pneumonitis. Probable small left pleural effusion. Recommend follow-up to resolution. Dictated by: Dictated on workstation # [id number]
[2023-01-03] MEDS ORDERED: cefTRIAXone 1 GM PRE-MIX 50 ML IV STA (20:13)
[2023-01-03] MEDS ORDERED: NS IV 1000 ML 1,000 ML IV STA ×2 (20:13→22:10)
[2023-01-03 20:19] LABS: BAND NEUTROPHILS 28 %; LYMPHOCYTES % (MANUAL) 6 %; METAMYELOCYTES % 16 %; MONOCYTES % (MANUAL) 1 %; MYELOCYTES % 3 %; NEUTROPHILS % (MANUAL) 46 %; PLATELET CLUMPS RARE; PLATELET ESTIMATE SLIGHTLY DECREASED; RBC MORPH NORMAL
[2023-01-03] MEDS ORDERED: AZITHROMYCIN INJECTION 500 MG in NS (IVPB) 250 ML IV STA (20:41)
[2023-01-03 21:16] LABS: ABG OXYGEN SATURATION 93 % (94-100); ABG PCO2 36 MMHG (35-45); ABG PH 7.39 (7.37-7.43); ABG PO2 69 MMHG (79-93); ABG TCO2 22.2 MMOL/L (21.0-31.0)
[2023-01-03 21:18] LABS: PATIENT TEMP 37.6
[2023-01-03] MEDS ORDERED: ENOXAPARIN 80 MG/0.8 ML (LOVENOX) SYR SC ONE (22:00)
[2023-01-03] MEDS ORDERED: RT-ALBUTEROL/IPRATROPIUM 3 ML (DUONEB) VIAL INH ONE (22:00)
--- OUTSIDE RECORDS SUMMARY | 2023-01-03 22:24 | XMS REPORT ---
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 confirmed [id number] ALLERGIES No Known Allergies ENCOUNTERS from 1950 to 2022-11-24 Encounter Location Date Provider Diagnosis [facility] [address] [facility] [facility] [id number] [place] [address] 17 Dec, 2020 AZALEA ARRIOLA Encounter for immuni zation Z23 IMMUNIZATIONS Vaccine Route Administration Date Status PRIVATE TDAP (BOOSTRIX) IM Intramuscular Jul 03, 2022 Adminis tered 2nd Dose HRSA MODERNA, COVID-19, 0.5mL IM Intramuscular January Administered tetanus toxoid (history) Unknown May 25, 2008 Adminis tered 1st Dose COVID-19, mRNA, MODERNA, 0.5 mL 2019 IM Intramuscular F 2020 Administered tdap (history) Unknown Oct 30, 2014 Administered influenza IIV3 high dose (history) Unknown Aug 12, 2018 Administered PRIVATE PCV 13 (PREVNAR) IM Intramuscular Jul 03, 2022 Admini stered zostavax (history) Unknown Jan 05, 2017 Administered PRIVATE TDAP (ADACEL) Unknown January 21, 2013 Pending pneumovax ppsv 23 (history) Unknown Aug 12, 2018 Admi nistered prevnar pcv 13 (history) Unknown Jan 05, 2017 Adminis terparis SOCIAL HISTORY Sex Assigned At : Social History Observation Description Sex Assigned At Unknown Alcohol Screen (Audit-C) Question Answer Notes Did you have a drink containing alcohol in the past year? Ye s Points 1 Interpretation Negative How often did you have 6 or more drinks on one occasio n in the past year? Never (0 points) How many drinks did you have on a typica l day when you were drinking in the past year? 1 or 2 (0 points) How often did you have a drink containing alcohol in t he past year? Monthly or less (1 point) PHQ2 Question Answer Notes In the last 2 weeks, how often have you had little interest or pleasure in doing things? Not at all In the last 2 weeks, how often have you been feeling down, depressed, or hopeless? Not at all Total PHQ2 Score 0 REASON FOR REFERRAL No Information VITAL SIGNS No information MEDICATIONS Medication SIG (Take, Route, Frequency, Duration) Notes Start Da te End Date Status Amitriptyline HCl 150 MG TAKE 1 TABLET BY MOUTH ONCE DAILY AT BEDTIME for 30 days Active Shingrix 50 MCG/0.5ML as directed Intramuscular Once a day for 6 0 days Jun, Active PROCEDURES No Information RESULTS No Results REASON FOR VISIT Covid Vaccine--1st dose [facility] MEDICAL (GENERAL) HISTORY Type Description Date Medical History anxiety Medical History restless leg syndrome Medical History Herpes zoster without mention of complic ation Medical History Restless legs syndrome [RLS] Medical History Anxiety state, unspecified Medical History Hidradenitis Medical History denies any hx of seizures Surgical History No know Surgical history Hospitalization History No know Hospitalization history Goals Section No Information Health Concerns No Information MEDICAL EQUIPMENT No Information MENTAL STATUS No Information FUNCTIONAL STATUS No Information ASSESSMENTS Encounter Date Diagnosis Assessment Notes Treatment Notes Treatm ent Clinical Notes Dec, Encounter for immunization (ICD-10 - Z23 ) PLAN OF TREATMENT Medication Medication Name Sig Start Date Stop Date Amitriptyline HCl 150 MG TAKE 1 TABLET BY MOUTH ONCE DAILY AT BEDTIME for 30 days Shingrix 50 MCG/0.5ML as directed Intramuscular Once a day f or 60 days Jun, Next Appt Details Provider Name:LYNDSEY FRIEND, 2023-01-04 04:20:00 PM, [address] [facility] [place] [place] [id number], [place], [address], Insurance Providers Payer Name Payer Address Payer Phone Insured Name Patient Relati onship to Insured Coverage Start Date Coverage End Date Subscriber Number Group Nu mber [employer] MEDICARE [place] PLAN [address] [facility] [id number] Edgard Linares Self - patient is the insured [id number] MEDICAID OF [place] [address] [facility] [address] Edgard Linares Self - patient is the insured [id number] NGS MEDICARE Part A [address] [facility] [address] Edgard Linares Self - patient is the insured 2019 [id number] MEDICATIONS ADMINISTERED Medication Instructions Date of Administration Dosage ROCEPHIN 1 GM (IM) Jun, 1000 mg
--- OUTSIDE RECORDS SUMMARY | 2023-01-03 22:24 | XMS REPORT ---
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 confirmed [id number] ALLERGIES No Known Allergies ENCOUNTERS from 1950 to 2022-12-22 Encounter Location Date Provider Diagnosis [facility] [place] [address] [facility] [id number] [place] [address] Jan, AZALEA ARRIOLA Encounter for immuni zation Z23 IMMUNIZATIONS Vaccine Route Administration Date Status 1st Dose COVID-19, mRNA, MODERNA, 0.5 mL 2020 IM Intramuscular F 2020 Administered tdap (history) Unknown Oct 30, 2014 Administered influenza IIV3 high dose (history) Unknown Aug 12, 2018 Administered zostavax (history) Unknown Jan 05, 2017 Administered pneumovax ppsv 23 (history) Unknown Aug 12, 2018 Admi nistered prevnar pcv 13 (history) Unknown Jan 05, 2017 Adminis tered 2nd Dose HRSA MODERNA, COVID-19, 0.5mL IM Intramuscular January Administered PRIVATE TDAP (BOOSTRIX) IM Intramuscular Jul 03, 2022 Adminis tered tetanus toxoid (history) Unknown May 25, 2008 Adminis tered PRIVATE PCV 13 (PREVNAR) IM Intramuscular Jul 03, 2022 Admini stered PRIVATE TDAP (ADACEL) Unknown January 21, 2013 Pending SOCIAL HISTORY Sex Assigned At : Social [...] DAILY AT BEDTIME for 30 days Active PROCEDURES No Information RESULTS No Results REASON FOR VISIT COVID-19 Vaccine Dose 2 MEDICAL (GENERAL) HISTORY Type Description Date Medical History anxiety Medical History restless leg syndrome Medical History Herpes zoster without mention of complic ation Medical History Restless legs syndrome [RLS] Medical History Anxiety state, unspecified Medical History Hidradenitis Medical History denies any hx of seizures Surgical History No Surgical history information Hospitalization History No Hospitalization history informati on Goals Section No Information Health Concerns No Information MEDICAL EQUIPMENT No Information MENTAL STATUS No Information FUNCTIONAL STATUS No Information ASSESSMENTS Encounter Date Diagnosis Assessment Notes Treatment Notes Treatm ent Clinical Notes Jan, Encounter for immunization (ICD-10 - Z23 ) PLAN OF TREATMENT Next Appt Details Provider Name:LYNDSEYRA Zulma FRIEND, 2023-01-04 04:20:00 PM, [address] [facility], [id number], [place], [address], Insurance Providers Payer Name Payer Address Payer Phone Insured Name Patient Relati onship to Insured Coverage Start Date Coverage End Date Subscriber Number Group Nu mber [place] MEDICARE Part A [address] [place] [phone] Edgard Linares Self - patient is the insured 2019 [id number] MEDICAID OF [place] [address] [facility] [address] Edgard Linares Self - patient is the insured [id number] AETNA MEDICARE [place] PLAN [address] [facility] [address] Edgard Linares Self - patient is the insured [id number] MEDICATIONS ADMINISTERED Medication Instructions Date of Administration Dosage ROCEPHIN 1 GM (IM) Jun, 1000 mg
[2023-01-03 22:29] VITALS: BP 106/78
[2023-01-03] MEDS ORDERED: diphenhydrAMINE 25 MG TAB (BENADRYL) PO PRN (22:45)
[2023-01-03] MEDS ORDERED: NS IV 1000 ML 1,000 ML IV SCH (22:45)
[2023-01-03] MEDS ORDERED: PATIENT MAY USE OWN MEDS, ALL PO SCH (22:45)
[2023-01-03] MEDS ORDERED: ONDANSETRON 4 MG/2 ML (SDV) Z0FRAN IV PRN (22:45)
[2023-01-03] MEDS ORDERED: polyethylene glycoL POWDER 17 GM (MIRALAX) PACK PO PRN (22:45)
[2023-01-03] MEDS ORDERED: MELATONIN 3 MG TABLET PO PRN (22:45)
[2023-01-03] MEDS ORDERED: cloNIDine 0.1 MG (CATAPRES) TAB PO PRN (22:45)
[2023-01-03] MEDS ORDERED: NS IV 500 ML 500 ML IV PRN (22:45)
[2023-01-03] MEDS ORDERED: LACTULOSE SYRUP 10GM/15ML (ENULOSE) 30ML UDC PO PRN (22:45)
[2023-01-03] MEDS ORDERED: CALCIUM CARBONATE 500 MG (TUMS) TAB.CHEW PO PRN (22:45)
[2023-01-03] MEDS ORDERED: ONDANSETRON 4 MG (ZOFRAN) ORAL DISSOLVE TAB PO PRN (22:45)
[2023-01-03] MEDS ORDERED: BISACODYL 10 MG SUPP (DULCOLAX) PR PRN (22:45)
[2023-01-03] MEDS ORDERED: ALPRAZolam 0.5 MG (XANAX) TAB PO PRN (22:45)
[2023-01-03] MEDS ORDERED: ENOXAPARIN 100 MG/1 ML (LOVENOX) SYR SC SCH (22:45)
[2023-01-03] MEDS ORDERED: morphine INJ 4 MG/ML 1 ML (VIAL/SYRINGE) IV PRN (22:45)
[2023-01-03] MEDS ORDERED: ANTACID SUSP 30 ML UDC (MYLANTA) PO PRN (22:45)
[2023-01-03] MEDS ORDERED: MILK OF MAGNESIA 400 MG/5 ML 30 ML UDC PO PRN (22:45)
[2023-01-03] MEDS ORDERED: NITROGLYCERIN 0.4 MG SL TABS BTL 25'S SL PRN (22:45)
[2023-01-03] MEDS ORDERED: diphenhydrAMINE 50 MG/ML INJ (BENADRYL) IVP PRN (22:45)
--- NOTE | 2023-01-03 22:57 | Tele-ICU Progress Note ---
Progress Note 72M without sig PMH, only on amitrptyline 150 mg at home admitted with pna, suspicion of PE. 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 Onset was just after getting out of a hot bath. Has had productive cough x3-4 days and some dizziness/vertigo. On EMS arrival, found to have SpO2 85% on RA. Improved to 95% on 2L NC. In ED had progressive O2 requirements, ultimately on vapotherm. - pneumonia: CAP. Azithro and Rocephin ongoing. Supportive care. Cultures pending. - hypoxia: likely secondary to pneumonia. However, hypoxia is significant leading to concern for PE. He has received therapuetic lovenox. VQ ordered for AM. No CTA secondary to acute renal dysfunction. - sepsis: secondary to pna. Sepsis protocol in place, only received 1L IVF. Will give another L now. Trend lactic of 3.45. Cultures pending. Broad spectrum abx initiated. - chest pain: no ischemic changes on EKG, troponin negative. Cardiology consulted for evaluation. Daily ASA ordered. Check AM lipid panel. PRN morphine if CP recurs. - acute renal failure: creatinine 2.5 with dark urine. Baseline unknown but pr esumed to be acute. Secondary to prerenal vs ATN in setting of sepsis. Received volume resuscitation per sepsis protocol. Continue maintenance fluids. Repeat BMP in AM. Avoid hypotension and nephrotoxins. Renally dose meds. - hyperglycemia: glucose 199, not fasting. Monitor q6 hour accuchecks, if remains elevated initiate low dose sliding scale. Check A1C in AM. Patient assessed via real-time audiovisual communication system. CCT11 min Focused Exam Lactate Level 01/03/23 20:45: Lactic Acid Level 3.45*H Height, Weight, BMI Height: 5'6.00" Weight: 172lbs. 7.0oz. 78.446149ru; 28.68 BMI Method:Stated Lactic Acid Level Laboratory Tests Test 01/03/23 20:45 Lactic Acid Level 3.45 MMOL/L (0.50-2.00) *H PASHA MORSE MD Jan 03, 2023 22:57
[2023-01-03] MEDS ORDERED: RT-ALBUTEROL SULF 2.5 MG/3 ML PRE-MIX VIAL INH PRN (23:00)
[2023-01-03] MEDS ORDERED: LACTATED RINGERS 1,000 ML IV SCH (23:00)
[2023-01-04] MEDS: AMITRIPTYLINE 150 MG (ELAVIL) TABLET PO SCH ×2 (00:33→20:30)
[2023-01-04] MEDS: RT-ALBUTEROL SULF 2.5 MG/3 ML PRE-MIX VIAL INH SCH ×4 (02:22→21:27)
[2023-01-04] MEDS: ACETAMINOPHEN 325 MG TABLET PO PRN ×4 (04:10→20:31)
[2023-01-04 04:27] LABS: BASOPHILS % (AUTO) 0 % (0-10); HEMOGLOBIN 12.4 g/dL (13.3-17.7); MEAN CORPUSCULAR HEMOGLOBIN 32 pg (25-34)
[2023-01-04 04:29] LABS: EOSINOPHILS % (AUTO) 0 % (0-10); HEMATOCRIT 36 % (40-54); LYMPHOCYTES # (AUTO) 0.6 10^3/uL (1.0-4.0); LYMPHOCYTES % (AUTO) 5 % (12-44); MEAN CORPUSCULAR HGB CONC 35 g/dL (32-36); MEAN CORPUSCULAR VOLUME 91 fL (80-99); MEAN PLATELET VOLUME 11.4 fL (9.0-12.2); MONOCYTES # (AUTO) 0.2 10^3/uL (0.0-1.0); MONOCYTES % (AUTO) 1 % (0-12); NEUTROPHILS # (AUTO) 10.9 10^3/uL (1.8-7.8); NEUTROPHILS % (AUTO) 92 % (42-75); PLATELET COUNT 103 10^3/uL (130-400); WHITE BLOOD COUNT 11.8 10^3/uL (4.3-11.0)
[2023-01-04 04:47] LABS: BILIRUBIN,TOTAL 1.3 MG/DL (0.1-1.0); CALCIUM 8.5 MG/DL (8.5-10.1); CREATININE SERUM 1.67 MG/DL (0.60-1.30); MAGNESIUM 1.5 MG/DL (1.6-2.4); PHOSPHORUS 2.3 MG/DL (2.3-4.7); POTASSIUM 4.2 MMOL/L (3.6-5.0); TOTAL PROTEIN 6.2 GM/DL (6.4-8.2)
[2023-01-04] MEDS: KCL 20 MEQ TAB (K-DUR) PO SCH (05:33)
[2023-01-04] MEDS: POTASSIUM CL 10MEQ/50ML IVPB 50 ML IV SCH (05:33)
[2023-01-04 05:36] LABS: ABG BASE EXCESS -0.9 MMOL/L (-2.5-2.5); ABG OXYGEN SATURATION 97 % (94-100); ABG PCO2 39 MMHG (35-45); ABG PO2 86 MMHG (79-93)
[2023-01-04 05:37] LABS: ALLENS TEST YES-POS; INSPIRED O2 70%; PATIENT TEMP 38.6; VENTILATOR NO
[2023-01-04] MEDS: MAGNESIUM 1 GM/100 ML IVPB 100 ML IV SCH ×4 (05:50→07:58)
--- NOTE | 2023-01-04 07:47 | Diagnostic Imaging Report ---
INDICATION: Pneumonia, followup. TECHNIQUE: Single view chest 4:08 AM. CORRELATION STUDY: 01/03/2023 FINDINGS: Airspace opacity in left mid and lower lung field as well as right mid and lower lung bryan present. Overall appears adversely changed and increased from prior. Heart size and mediastinum are generally stable. Question small left effusion. IMPRESSION: 1. Bilateral pulmonary infiltrate-like opacities at left greater than right overall appear adversely changed from prior. Dictated by: Dictated on workstation # [id number]
[2023-01-04] MEDS ORDERED: meTOprolol TARTRATE 25 MG (LOPRESSOR) TABLET PO SCH (09:00)
--- NOTE | 2023-01-04 09:06 | Tele-ICU Progress Note ---
Subjective Date Seen by a Provider: Jan 04, 2023 Time Seen by a Provider: 12:30 Subjective/Events-last exam (Tele-ICU Physician , progress note) Available chart/ vitals / labs / Images reviewed H&P is from ER notes Patient's information available about PMH, allergy reviewed in EMR. ROS as per chart and RN report Video assessment done using teleICU camera, rest of exam as per RN Discussed with RN. He is a 72-year-old male presented to the emergency room with a complaint that he has been having chills for several days and has been having dyspnea for last several days associated with the increase in the release sent fast hence his lady friend called the EMS and he was brought to the emergency room he also complained of left-sided chest pressure in the mid axillary region. He denies any hemoptysis. He does however has a pink-colored urination. Also he does have a significant thick sputum production. He drinks alcohol occasionally. Not a smoker. Upon admission chest x-ray showed left basilar infiltrate and a D-dimer is elevated. He is a started on antibiotics and full dose anticoagulation due to the fact that PE is not ruled out and he is a BUN/creatinine elevated and CTA of the chest with contrast could not be done a VQ scan is ordered for today which is awaiting. His platelet count is also low which I think probably due to the underlying condition rather than a Lovenox which was started yesterday. A cardiology consultation also requested to address the left sided chest pain. Urine analysis showed many RBC and moderate bacteria 2+ protein. Total CPK is 194. Impression patient most likely has a community-acquired left sided pneumonia however pulmonary embolism not ruled out 2. Acute kidney injury due to dehydration 3. Rule out any coronary artery disease 4. Acute hypoxic respiratory failure requiring supplemental oxygen. 5. Thrombocytopenia most likely due to infection Recommendations 1. Continue supplemental oxygen with nasal cannula/Vapotherm 2. IV antibiotics will be continued 3. We will await VQ scan results 4. We will continue to monitor his platelet count meanwhile we will continue Lovenox. 5. Urine cultures will be monitored. 6. We will get a urine Legionella antigen 7. Blood cultures will be ordered. Coordination of care with bedside consultants and primary care physician. Critical care time spent today is 32 minutes including discussions in the MDR. Sepsis Event Evaluation Height, Weight, BMI Height: 5'6.00" Weight: 172lbs. 7.0oz. 78.750794qs; 28.68 BMI Method:Stated Focused Exam Lactate Level 01/03/23 20:45: Lactic Acid Level 3.45*H 01/03/23 22:55: Lactic Acid Level 2.74*H 01/04/23 04:13: Lactic Acid Level 1.62 Exam Exam Patient acknowledged, consented, and participated in this virtual visit which was conducted using real time audio/video Vital Signs Date Time Temp Pulse Resp B/P (MAP) Pulse Ox O2 Delivery O2 Flow Rate FiO2 01/04/23 08:00 37.0 01/04/23 08:00 113 26 97/57 (70) 87 Vapotherm 40.00 70.00 01/04/23 07:28 110 01/04/23 07:03 92 Vapotherm 40.00 70 01/04/23 07:00 110 33 105/69 (81) 92 Vapotherm 40.00 70.00 01/04/23 06:00 116 36 117/69 (83) 94 01/04/23 05:00 123 40 110/66 (80) 94 Vapotherm 40.00 70.00 01/04/23 04:50 38.2 01/04/23 04:10 38.2 01/04/23 04:00 38.2 124 40 120/61 (81) 91 01/04/23 04:00 Vapotherm 40.00 60 01/04/23 03:00 122 42 109/69 (82) 93 Vapotherm 40.00 70.00 01/04/23 02:22 91 Vapotherm 40.00 70 01/04/23 02:00 122 40 106/69 (82) 89 01/04/23 01:00 122 01/04/23 01:00 37.5 122 38 104/69 (79) 94 01/04/23 00:39 Vapotherm 40.00 60 01/04/23 00:15 122 41 94 01/04/23 00:00 122 40 106/61 (79) 89 Vapotherm 40.00 60.00 01/03/23 23:45 121 32 105/67 (79) 90 01/03/23 23:15 121 41 105/72 (89) 94 01/03/23 23:00 122 32 111/73 (81) 91 01/03/23 23:00 121 35 111/73 (81) 92 Vapotherm 40.00 60.00 01/03/23 22:45 117 107/68 (77) 94 Vapotherm 40.00 60.00 01/03/23 22:45 117 32 107/68 (77) 94 01/03/23 22:30 37.0 117 32 99/63 (75) 93 Vapotherm 40.00 60.00 01/03/23 22:30 117 99/63 (75) 94 Vapotherm 40.00 60.00 01/03/23 22:29 37.6 127 93 60 01/03/23 22:25 Vapotherm 40.00 60 01/03/23 22:22 121 01/03/23 22:21 120 28 113/74 (87) 94 Vapotherm 40.00 60.00 01/03/23 22:21 118 32 113/74 (87) 91 01/03/23 22:18 122 36 98/67 93 Vapotherm 75.00 01/03/23 22:00 93 Vapotherm 75 01/03/23 21:44 93 Vapotherm 25.00 65 01/03/23 21:30 89 OxyMask 6.00 01/03/23 21:00 89 Nasal Cannula 3.00 01/03/23 19:38 91 Nasal Cannula 2.00 01/03/23 19:30 37.6 127 106/78 (87) 91 Nasal Cannula 2.00 I & O 01/04/23 07:00 Intake Total 3105 ml Output Total 350 ml Balance 2755 ml Height & Weight Height: 5'6.00" Weight: 172lbs. 7.0oz. 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
--- NOTE | 2023-01-04 09:06 | Consultation-Cardiology ---
HPI-Cardiology Cardiology Consultation: Date of Consultation 01/04/23 Time Seen by a Provider: 08:25 Date of Admission 01-03-23 Attending Physician [facility] Admitting Physician Admitting Physician: Audrey Solorzano DO Attending Physician: Kenisha Juarez MD Consulting Physician Katie Brito MD HPI: Chief Complaint: Progressive dyspnea Mr. Benoit is a 72 yr old male admitted to ICU 6 from the ED with c/o increasing dyspnea. He reports he was at a lady friends house yesterday and d/t increasing SOB she called EMS. He states he has had increasing SOB for the last several days with chills. He reports 2 days ago he decided to take a bath and when he got out of the bath tub he was having left sided chest pressure. He states he does not recall that it radiated. He reports the chest pressure lasted for "awhile" but he is unable to quantify. He denies any syncope or near syncope. However, the ED notes report he stated to them he slipped an fell getting out of the shower. When asked about that incident he states he doesn't think so. He reports the chest pressure has been constant for the last couple days. It does not change with movement or coughing. He denies any palpitations. He denies any LE swelling. He reports he has had a significant productive cough of thick sputum. He reports he has some left sided chest pressure at this time. He reports continued SOB, that he does not feel has improved. He reports he did sleep on the floor at his friends house for 2-3 days because he was staying with her and she did not have a bed for him to sleep in. He reports he had pink tinged urine yesterday. He reports occ alcohol usage. He denies any smoking history. Review of Systems-Cardiology Review of Systems Constitutional: no symptoms reported Eyes: No vision change Ears/Nose/Throat: No epistaxis, No recent hearing loss Respiratory: As described under HPI Cardiovascular: As described under HPI Gastrointestinal: No constipation, No diarrhea, No nausea, No vomiting Genitourinary: As described under HPI Musculoskeletal: no symptoms reported Skin: No rash on exposed areas, No ulcerations on exposed areas Psychiatric/Neurological: anxiety; No seizure, No focal weakness, No syncope Hematologic: No bleeding abnormalities All Other Systems Reviewed Negative Unless Noted: Yes [id number] Hx Patient Social History 2nd Hand Smoke Exposure: No Have you traveled recently?: No Alcohol Use?: No Immunizations Up To Date Tetanus Booster (TDap): More than 5yrs Past Medical History PMH As described under Assessment. Family Medical History Family Medical History: He reports he had a brother who had an IA. Family History: FH: lung cancer 19 MOTHER Allergies and Home Medications Allergies Coded Allergies: No Known Drug Allergies (Unverified , 10/18/10) Patient Home Medication List Amitriptyline HCl (Amitriptyline HCl) 150 Mg Tablet, (Reported) Entered as Reported by: CORNELIUS YING on 05/17/212106 Physical Exam-Cardiology Physical Exam Vital Signs/I&O 01/04/23 01/04/23 01/04/23 01/04/23 02:00 02:22 03:00 04:00 Pulse 122 122 Resp 40 42 B/P (MAP) 106/69 (82) 109/69 (82) Pulse Ox 89 91 93 O2 Delivery Vapotherm Vapotherm Vapotherm O2 Flow Rate 40.00 40.00 40.00 70.00 FiO2 70 60 01/04/23 01/04/23 01/04/23 01/04/23 04:00 04:10 04:50 05:00 Temp 38.2 38.2 38.2 Pulse 124 123 Resp 40 40 B/P (MAP) 120/61 (81) 110/66 (80) Pulse Ox 91 94 O2 Delivery Vapotherm O2 Flow Rate 40.00 70.00 01/04/23 01/04/23 01/04/23 01/04/23 06:00 07:00 07:03 07:28 Pulse 116 110 110 Resp 36 33 B/P (MAP) 117/69 (83) 105/69 (81) Pulse Ox 94 92 92 O2 Delivery Vapotherm Vapotherm O2 Flow Rate 40.00 40.00 70.00 FiO2 70 01/04/23 01/04/23 01/04/23 01/04/23 08:00 08:00 08:16 09:00 Temp 37.0 Pulse 113 111 Resp 26 36 B/P (MAP) 97/57 (70) 127/76 (93) Pulse Ox 87 93 O2 Delivery Vapotherm Vapotherm Vapotherm O2 Flow Rate 40.00 40.00 40.00 70.00 70.00 FiO2 60 01/04/23 01/04/23 01/04/23 01/04/23 09:44 09:47 10:00 11:00 Pulse 120 122 Resp 33 42 B/P (MAP) 140/71 (94) 113/70 (84) Pulse Ox 87 93 90 100 O2 Delivery Vapotherm Vapotherm Vapotherm Vapotherm O2 Flow Rate 40.00 40.00 40.00 40.00 70.00 70.00 FiO2 70 100 01/04/23 01/04/23 01/04/23 01/04/23 11:50 12:00 12:00 12:21 Temp 38.1 38.3 Pulse 117 115 Resp 40 B/P (MAP) 128/78 (95) Pulse Ox 97 O2 Delivery Vapotherm O2 Flow Rate 40.00 70.00 01/04/23 00:00 Intake Total 1305 ml Balance 1305 ml Capillary Refill : Constitutional: AAO x 3, well-developed, well-nourished HEENT: PERRL, hearing is well preserved, oral hygience is good Neck: No carotid bruit; carotid pulses are 2 + bilaterally Respiratory: chest expansion is symmetric, chest is bilaterally symmetric, rhonchi (scattered), other (coarse breath sounds upper lobes; diminished bases bilat) Cardiovascular: No JVD; tachycardia, S1 and S2 Gastrointestinal: No tender; soft, round, audible bowel sounds Extremities: no lower extremity edema bilateral Neurologic/Psychiatric: grossly intact (moves all extremities) Skin: No rash on exposed areas, No ulcerations on exposed areas Data Review Labs Laboratory Tests 01/03/23 19:38: White Blood Count 11.7H, Red Blood Count 4.30, Hemoglobin 13.5, Hematocrit 39L, Mean Corpuscular Volume 91, Mean Corpuscular Hemoglobin 31, Mean Corpuscular Hemoglobin Concent 34, Red Cell Distribution Width 13.2, Platelet Count 114L, Mean Platelet Volume 11.1, Immature Granulocyte % (Auto) 1, Neutrophils (%) (Auto) 92H, Lymphocytes (%) (Auto) 4L, Monocytes (%) (Auto) 2, Eosinophils (%) (Auto) 0, Basophils (%) (Auto) 1, Neutrophils # (Auto) 10.8H, Lymphocytes # (Auto) 0.4L, Monocytes # (Auto) 0.2, Eosinophils # (Auto) 0.0, Basophils # (Auto) 0.1, Immature Granulocyte # (Auto) 0.2H, Neutrophils % (Manual) 46, Lymphocytes % (Manual) 6, Monocytes % (Manual) 1, Metamyelocytes % 16, Myelocytes % 3, Band Neutrophils 28, Platelet Estimate SLIGHTLY DECREASED, Clumped Platelets RARE, Percent Immature Platelet Fraction 5.2, Blood Morphology Comment NORMAL, Prothrombin Time 17.8H, INR Comment 1.4, Activated Partial Thromboplast Time 37H, D-Dimer 2.60H, Sodium Level 134L, Potassium Level 4.5, Chloride Level 101, Carbon Dioxide Level 18L, Anion Gap 15H, Blood Urea Nitrogen 49H, Creatinine 2.65H, Estimat Glomerular Filtration Rate 25, BUN/Creatinine Ratio 18, Glucose Level 199H, Calcium Level 8.8, Corrected Calcium 9.4, Magnesium Level 1.6, Total Bilirubin 1.6H, Aspartate Amino Transf (AST/SGOT) 39H , Alanine Aminotransferase (ALT/SGPT) 18, Alkaline Phosphatase 60, Myoglobin 689.5H, Troponin I 0.051H, C-Reactive Protein High Sensitivity 30.79H, B-Type Natriuretic Peptide 235.6H, Total Protein 6.6, Albumin 3.3 01/03/23 20:22: Influenza Type A (RT-PCR) Not Detected, Influenza Type B (RT-PCR) Not Detected, SARS-CoV-2 RNA (RT-PCR) Not Detected 01/03/23 20:45: Lactic Acid Level 3.45*H 01/03/23 21:00: Blood Gas Puncture Site UNK, Blood Gas Patient Temperature 37.6, Arterial Blood pH 7.39, Arterial Blood Partial Pressure CO2 36, Arterial Blood Partial Pressure O2 69L, Arterial Blood HCO3 21L, Arterial Blood Total CO2 22.2, Arterial Blood Oxygen Saturation 93L, Arterial Blood Base Excess -3.0L, Ta Test UNK, Blood Gas Ventilator Setting NA, Blood Gas Inspired Oxygen UNK 01/03/23 22:55: Lactic Acid Level 2.74*H 01/04/23 00:31: Glucometer 99 01/04/23 04:13: Lactic Acid Level 1.62, White Blood Count 11.8H, Red Blood Count 3.92L, Hemoglobin 12.4L, Hematocrit 36L, Mean Corpuscular Volume 91, Mean Corpuscular Hemoglobin 32, Mean Corpuscular Hemoglobin Concent 35, Red Cell Distribution Width 13.0, Platelet Count 103L, Mean Platelet Volume 11.4, Immature Granulocyte % (Auto) 1, Neutrophils (%) (Auto) 92H, Lymphocytes (%) (Auto) 5L, Monocytes (%) (Auto) 1, Eosinophils (%) (Auto) 0, Basophils (%) (Auto) 0, Neutrophils # (Auto) 10.9H, Lymphocytes # (Auto) 0.6L, Monocytes # (Auto) 0.2, Eosinophils # (Auto) 0.0, Basophils # (Auto) 0.0, Immature Granulocyte # (Auto) 0.1, Percent Immature Platelet Fraction 5.1, Sodium Level 134L, Potassium Level 4.2, Chloride Level 104, Carbon Dioxide Level 18L, Anion Gap 12, Blood Urea Nitrogen 38H, Creatinine 1.67H, Estimat Glomerular Filtration Rate 43, BUN/Creatinine Ratio 23, Glucose Level 109H, Calcium Level 8.5, Corrected Calcium 9.3, Phosphorus Level 2.3, Magnesium Level 1.5L, Total Bilirubin 1.3H, Aspartate Amino Transf (AST/SGOT) 36H, Alanine Aminotransferase (ALT/SGPT) 17, Alkaline Phosphatase 50, Total Protein 6.2L, Albumin 3.0L, Triglycerides Level 143, Cholesterol Level 87, LDL Cholesterol Direct 33, VLDL Cholesterol 29, HDL Cholesterol 18L 01/04/23 04:15: Total Creatine Kinase 194 01/04/23 05:16: Blood Gas Puncture Site LT RADIAL, Blood Gas Patient Temperature 38.6, Arterial Blood pH 7.40, Arterial Blood Partial Pressure CO2 39, Arterial Blood Partial Pressure O2 86, Arterial Blood HCO3 23, Arterial Blood Total CO2 24.0, Arterial Blood Oxygen Saturation 97, Arterial Blood Base Excess -0.9, Ta Test YES-POS, Blood Gas Ventilator Setting NO, Blood Gas Inspired Oxygen 70% 01/04/23 05:57: Glucometer 110 01/04/23 10:50: Urine Color AMBERH, Urine Clarity SL CLOUDY, Urine pH 6.0, Urine Specific [place] >=1.030, Urine Protein 2+H, Urine Glucose (UA) NEGATIVE, Urine Ketones NEGATIVE, Urine Nitrite NEGATIVE, Urine Bilirubin NEGATIVE, Urine Urobilinogen 2.0, Urine Leukocyte Esterase NEGATIVE, Urine RBC (Auto) 3+H, Urine RBC 10-25H, Urine WBC 0-2, Urine Crystals NONE, Urine Bacteria MODERATEH, Urine Casts PRESENT, Urine Granular Casts 0-2H, Urine Mucus NEGATIVE, Urine Culture Indicated YES 01/04/23 12:06: Glucometer 101 Radiology NAME: PIPO [facility]ENO[facility] REC#: [id number] PT STATUS: ADM IN : 1950 PHYSICIAN: AUDREY SOLORZANO DO ADMIT DATE: 01/03/23/ICU Signed Date of Exam:01/04/23 CHEST 1 VIEW, AP/PA ONLY INDICATION: Pneumonia, followup. TECHNIQUE: Single view chest 4:08 AM. CORRELATION STUDY: 01/03/2023 FINDINGS: Airspace opacity in left mid and lower lung field as well as right mid and lower lung bryan present. Overall appears adversely changed and increased from prior. Heart size and mediastinum are generally stable. Question small left effusion. IMPRESSION: 1. Bilateral pulmonary infiltrate-like opacities at left greater than right overall appear adversely changed from prior. Dictated by: Dictated on workstation # [id number] Dict: 01/04/23 0739 Trans: 01/04/23 0804 CVB [id number] Interpreted by: EMILY LENNON DO Electronically signed by: EMILY LENNON DO 01/04/23 0804 ECG Impression ECG Initial ECG Rhythm: S.Tach A/P-Cardiology Assessment/Admission Diagnosis Chest discomfort with elevated troponin - NSTEMI vs Type 2 IA secondary to sepsis/hypoxia Pneumonia with sepsis - management per medical services Hypotension - likely secondary to sepsis Tachycardia - likely d/t sepsis SANDY - likely secondary to hypotension/sepsis - improved today ? Hematuria - management per medical services Reports h/o heavy ETOH usage in the past - reports occ usage Hypo-magnesium Mild thrombocytopenia - undetermined etiology Discussion and Recomendations Chest discomfort - minimally elevated troponin - NSTEMI vs Type 2 IA secondary to sepsis/hypoxia - currently receiving treatment dosing lovenox - continue - continue ASA - add low dose BB as tolerated and BP will allow - Echocardiogram today to eval structure and function Sepsis/pneumonia - management per medical services SANDY - improving with IVF - continue to monitor Hypotension - continue to monitor - currently not suitable candidate for BB secondary to hypotension Mild thrombocytopenia - undetermined etiology - monitor Hypo-mag - replace Monitor lab closely, further recs will be based on his hospital course We would like to thank medical services for this consult Clinical Quality Measures DVT/VTE Risk/Contraindication: Contraindications-Mechi: Other *list below* Other: poss dvt EMILY MADDEN Jan 04, 2023 08:49
[2023-01-04] MEDS: ASPIRIN E.C. 81 MG (ECOTRIN) TAB PO SCH (09:12)
[2023-01-04] MEDS ORDERED: meTOprolol TARTRATE 25 MG (LOPRESSOR) TABLET PO NR (09:30)
[2023-01-04] MEDS: DOCUSATE SODIUM 100 MG (COLACE) CAP PO SCH ×2 (09:32→20:30)
[2023-01-04] MEDS: SENNOSIDES 8.6 MG (SENOKOT) TAB PO SCH ×2 (09:32→20:31)
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
[2023-01-04] MEDS ORDERED: ENOXAPARIN 80 MG/0.8 ML (LOVENOX) SYR SC SCH ×2 (11:00→21:00)
[2023-01-04] MEDS ORDERED: CATHETER FLUSH 10 ML SYR IVP PRN (11:00)
[2023-01-04 11:12] LABS: BILIRUBIN,URINE NEGATIVE (NEGATIVE); CLARITY,URINE SL CLOUDY; COLOR,URINE AMBER; GLUCOSE, URINE (UA) NEGATIVE (NEGATIVE); KETONES,URINE NEGATIVE (NEGATIVE); LEUKOCYTE ESTERASE ,URINE NEGATIVE (NEGATIVE); NITRITE,URINE NEGATIVE (NEGATIVE); PROTEIN,URINE 2+ (NEGATIVE)
[2023-01-04 11:26] LABS: BACTERIA,URINE MODERATE /HPF; GRANULAR CASTS,URINE 0-2 /LPF; WBC,URINE 0-2 /HPF
--- NOTE | 2023-01-04 12:46 | Consultation-Cardiology ---
HPI-Cardiology Cardiology Consultation: Date of Consultation 01/04/23 Time Seen by a Provider: 09:40 Date of Admission Attending Physician [place] Admitting Physician Admitting Physician: Audrey Cruz DO Attending Physician: Kenisha Juarez MD Consulting Physician JOAN ALEJANDRO MD, MA, FACP, FACC, [facility], CCDS Physician requesting consult: Dr Cruz HPI: Chief Complaint: Progressive dyspnea Mr. Linares is a 72 yr old male admitted to ICU 6 from the ED with c/o increasing dyspnea. He reports he was at a lady friends house yesterday and d/t increasing SOB she called EMS. He states he has had increasing SOB for the last several days with chills. He reports 2 days ago he decided to take a bath and when he got out of the bath tub he was having left sided chest pressure. He states he does not recall that it radiated. He reports the chest pressure lasted for "awhile" but he is unable to quantify. He denies any syncope or near syncope. However, the ED notes report he stated to them he slipped an fell getting out of the shower. When asked about that incident he states he doesn't think so. He reports the chest pressure has been constant for the last couple days. It does not change with movement or coughing. He denies any palpitations. He denies any LE swelling. He reports he has had a significant productive cough of thick sputum. He reports he has some left sided chest pressure at this time. He reports continued SOB, that he does not feel has improved. He reports he did sleep on the floor at his friends house for 2-3 days because he was staying with her and she did not have a bed for him to sleep in. He reports he had pink tinged urine yesterday. He reports occ alcohol usage. He denies any smoking history. Review of Systems-Cardiology Review of Systems Constitutional: no symptoms reported Eyes: No vision change Ears/Nose/Throat: No epistaxis, No recent hearing loss Respiratory: As described under HPI Cardiovascular: As described under HPI Gastrointestinal: No constipation, No diarrhea, No nausea, No vomiting Genitourinary: As described under HPI Musculoskeletal: no symptoms reported Skin: No rash on exposed areas, No ulcerations on exposed areas Psychiatric/Neurological: anxiety; No seizure, No focal weakness, No syncope Hematologic: No bleeding abnormalities All Other Systems Reviewed Negative Unless Noted: Yes UQE-[id number]-Plfydt Hx Patient Social History Smoking Status: Never a Smoker 2nd Hand Smoke Exposure: No Have you traveled recently?: No Alcohol Use?: Yes (occasional, 2-3 beers three to four days per week) Immunizations Up To Date Tetanus Booster (TDap): More than 5yrs Past Medical History PMH As described under Assessment. Family Medical History Family Medical History: He reports he had a brother who had an [place]. Family History: FH: lung cancer 19 MOTHER Allergies and Home Medications Allergies Coded Allergies: No Known Drug Allergies (Unverified , 10/18/10) Patient Home Medication List Home Medication List Reviewed: Yes Amitriptyline HCl (Amitriptyline HCl) 150 Mg Tablet, (Reported) Entered as Reported by: CORNELIUS YING on 05/17/212106 Physical Exam-Cardiology Physical Exam Vital Signs/I&O 01/04/23 01/04/23 01/04/23 01/04/23 01:00 01:00 02:00 02:22 Temp 37.5 Pulse 122 122 122 Resp 38 40 B/P (MAP) 104/69 (79) 106/69 (82) Pulse Ox 94 89 91 O2 Delivery Vapotherm O2 Flow Rate 40.00 FiO2 70 01/04/23 01/04/23 01/04/23 01/04/23 03:00 04:00 04:00 04:10 Temp 38.2 38.2 Pulse 122 124 Resp 42 40 B/P (MAP) 109/69 (82) 120/61 (81) Pulse Ox 93 91 O2 Delivery Vapotherm Vapotherm O2 Flow Rate 40.00 40.00 70.00 FiO2 60 01/04/23 01/04/23 01/04/23 01/04/23 04:50 05:00 06:00 07:00 Temp 38.2 Pulse 123 116 110 Resp 40 36 33 B/P (MAP) 110/66 (80) 117/69 (83) 105/69 (81) Pulse Ox 94 94 92 O2 Delivery Vapotherm Vapotherm O2 Flow Rate 40.00 40.00 70.00 70.00 01/04/23 01/04/23 01/04/23 01/04/23 07:03 07:28 08:00 08:00 Temp 37.0 Pulse 110 113 Resp 26 B/P (MAP) 97/57 (70) Pulse Ox 92 87 O2 Delivery Vapotherm Vapotherm O2 Flow Rate 40.00 40.00 70.00 FiO2 70 01/04/23 01/04/23 01/04/23 01/04/23 08:16 09:00 09:44 09:47 Pulse 111 Resp 36 B/P (MAP) 127/76 (93) Pulse Ox 93 87 93 O2 Delivery Vapotherm Vapotherm Vapotherm Vapotherm O2 Flow Rate 40.00 40.00 40.00 40.00 70.00 FiO2 60 70 100 01/04/23 01/04/23 01/04/23 01/04/23 10:00 11:00 11:50 12:00 Temp 38.1 Pulse 120 122 117 Resp 33 42 40 B/P (MAP) 140/71 (94) 113/70 (84) 128/78 (95) Pulse Ox 90 100 97 O2 Delivery Vapotherm Vapotherm Vapotherm O2 Flow Rate 40.00 40.00 40.00 70.00 70.00 70.00 01/04/23 01/04/23 12:00 12:21 Temp 38.3 Pulse 115 01/03/23 23:59 Intake Total 1305 ml Balance 1305 ml Capillary Refill : Constitutional: AAO x 3, well-developed, well-nourished HEENT: PERRL, hearing is well preserved, oral hygience is good Neck: No carotid bruit; carotid pulses are 2 + bilaterally Respiratory: chest expansion is symmetric, chest is bilaterally symmetric, rhonchi (scattered), other (coarse breath sounds upper lobes; diminished bases bilat) Cardiovascular: No JVD; tachycardia, S1 and S2 Gastrointestinal: No tender; soft, round, audible bowel sounds Extremities: no lower extremity edema bilateral Neurologic/Psychiatric: grossly intact (moves all extremities) Skin: No rash on exposed areas, No ulcerations on exposed areas Data Review Labs Laboratory Tests 01/03/23 19:38: White Blood Count 11.7H, Red Blood Count 4.30, Hemoglobin 13.5, Hematocrit 39L, Mean Corpuscular Volume 91, Mean Corpuscular Hemoglobin 31, Mean Corpuscular Hemoglobin Concent 34, Red Cell Distribution Width 13.2, Platelet Count 114L, Mean Platelet Volume 11.1, Immature Granulocyte % (Auto) 1, Neutrophils (%) (Auto) 92H, Lymphocytes (%) (Auto) 4L, Monocytes (%) (Auto) 2, Eosinophils (%) (Auto) 0, Basophils (%) (Auto) 1, Neutrophils # (Auto) 10.8H, Lymphocytes # (Auto) 0.4L, Monocytes # (Auto) 0.2, Eosinophils # (Auto) 0.0, Basophils # (Auto) 0.1, Immature Granulocyte # (Auto) 0.2H, Neutrophils % (Manual) 46, Lymphocytes % (Manual) 6, Monocytes % (Manual) 1, Metamyelocytes % 16, Myelocytes % 3, Band Neutrophils 28, Platelet Estimate SLIGHTLY DECREASED, Clumped Platelets RARE, Percent Immature Platelet Fraction 5.2, Blood Morphology Comment NORMAL, Prothrombin Time 17.8H, INR Comment 1.4, Activated Partial Thromboplast Time 37H, D-Dimer 2.60H, Sodium Level 134L, Potassium Level 4.5, Chloride Level 101, Carbon Dioxide Level 18L, Anion Gap 15H, Blood Urea Nitrogen 49H, Creatinine 2.65H, Estimat Glomerular Filtration Rate 25, BUN/Creatinine Ratio 18, Glucose Level 199H, Calcium Level 8.8, Corrected Calcium 9.4, Magnesium Level 1.6, Total Bilirubin 1.6H, Aspartate Amino Transf (AST/SGOT) 39H , Alanine Aminotransferase (ALT/SGPT) 18, Alkaline Phosphatase 60, Myoglobin 689.5H, Troponin I 0.051H, C-Reactive Protein High Sensitivity 30.79H, B-Type Natriuretic Peptide 235.6H, Total Protein 6.6, Albumin 3.3 01/03/23 20:22: Influenza Type A (RT-PCR) Not Detected, Influenza Type B (RT-PCR) Not Detected, SARS-CoV-2 RNA (RT-PCR) Not Detected 01/03/23 20:45: Lactic Acid Level 3.45*H 01/03/23 21:00: Blood Gas Puncture Site UNK, Blood Gas Patient Temperature 37.6, Arterial Blood pH 7.39, Arterial Blood Partial Pressure CO2 36, Arterial Blood Partial Pressure O2 69L, Arterial Blood HCO3 21L, Arterial Blood Total CO2 22.2, Arterial Blood Oxygen Saturation 93L, Arterial Blood Base Excess -3.0L, Ta Test UNK, Blood Gas Ventilator Setting NA, Blood Gas Inspired Oxygen UNK 01/03/23 22:55: Lactic Acid Level 2.74*H 01/04/23 00:31: Glucometer 99 01/04/23 04:13: Lactic Acid Level 1.62, White Blood Count 11.8H, Red Blood Count 3.92L, Hemoglobin 12.4L, Hematocrit 36L, Mean Corpuscular Volume 91, Mean Corpuscular Hemoglobin 32, Mean Corpuscular Hemoglobin Concent 35, Red Cell Distribution Width 13.0, Platelet Count 103L, Mean Platelet Volume 11.4, Immature Granulocyte % (Auto) 1, Neutrophils (%) (Auto) 92H, Lymphocytes (%) (Auto) 5L, Monocytes (%) (Auto) 1, Eosinophils (%) (Auto) 0, Basophils (%) (Auto) 0, Neutrophils # (Auto) 10.9H, Lymphocytes # (Auto) 0.6L, Monocytes # (Auto) 0.2, Eosinophils # (Auto) 0.0, Basophils # (Auto) 0.0, Immature Granulocyte # (Auto) 0.1, Percent Immature Platelet Fraction 5.1, Sodium Level 134L, Potassium Level 4.2, Chloride Level 104, Carbon Dioxide Level 18L, Anion Gap 12, Blood Urea Nitrogen 38H, Creatinine 1.67H, Estimat Glomerular Filtration Rate 43, BUN/Creatinine Ratio 23, Glucose Level 109H, Calcium Level 8.5, Corrected Calcium 9.3, Phosphorus Level 2.3, Magnesium Level 1.5L, Total Bilirubin 1.3H, Aspartate Amino Transf (AST/SGOT) 36H, Alanine Aminotransferase (ALT/SGPT) 17, Alkaline Phosphatase 50, Total Protein 6.2L, Albumin 3.0L, Triglycerides Level 143, Cholesterol Level 87, LDL Cholesterol Direct 33, VLDL Cholesterol 29, HDL Cholesterol 18L 01/04/23 04:15: Total Creatine Kinase 194 01/04/23 05:16: Blood Gas Puncture Site LT RADIAL, Blood Gas Patient Temperature 38.6, Arterial Blood pH 7.40, Arterial Blood Partial Pressure CO2 39, Arterial Blood Partial Pressure O2 86, Arterial Blood HCO3 23, Arterial Blood Total CO2 24.0, Arterial Blood Oxygen Saturation 97, Arterial Blood Base Excess -0.9, Ta Test YES-POS, Blood Gas Ventilator Setting NO, Blood Gas Inspired Oxygen 70% 01/04/23 05:57: Glucometer 110 01/04/23 10:50: Urine Color AMBERH, Urine Clarity SL CLOUDY, Urine pH 6.0, Urine Specific [place] >=1.030, Urine Protein 2+H, Urine Glucose (UA) NEGATIVE, Urine Ketones NEGATIVE, Urine Nitrite NEGATIVE, Urine Bilirubin NEGATIVE, Urine Urobilinogen 2.0, Urine Leukocyte Esterase NEGATIVE, Urine RBC (Auto) 3+H, Urine RBC 10-25H, Urine WBC 0-2, Urine Crystals NONE, Urine Bacteria MODERATEH, Urine Casts PRESENT, Urine Granular Casts 0-2H, Urine Mucus NEGATIVE, Urine Culture Indicated YES 01/04/23 12:06: Glucometer 101 A/P-Cardiology Assessment/Admission Diagnosis Chest discomfort with elevated troponin - NSTEMI vs Type 2 NJ secondary to sepsis/hypoxia - Echo on 01/04/23: LVEF 50-55%, PASP 25-30 mmHg Pneumonia with sepsis - management per medical services Hypotension - likely secondary to sepsis Tachycardia - likely d/t sepsis SANDY - likely secondary to hypotension/sepsis - improved today ? Hematuria - management per medical services Reports h/o heavy ETOH usage in the past - reports occ usage Hypo-magnesium Mild thrombocytopenia - undetermined etiology Discussion and Recomendations Chest discomfort - minimally elevated troponin - NSTEMI vs Type 2 NJ secondary to sepsis/hypoxia - currently receiving treatment dosing lovenox - continue - continue ASA - add low dose BB as tolerated and BP will allow - Echocardiogram today to eval structure and function Sepsis/pneumonia - management per medical services SANDY - improving with IVF - continue to monitor Hypotension - continue to monitor - currently not suitable candidate for BB secondary to hypotension Mild thrombocytopenia - undetermined etiology - monitor Hypo-mag - replace Monitor lab closely, further recs will be based on his hospital course We would like to thank medical services for this consult Clinical Quality Measures DVT/VTE Risk/Contraindication: Contraindications-Mechi: Other *list below* Other: poss dvt JOAN ALEJANDRO MD FACP FAC CCDS Jan 04, 2023 12:46
--- NOTE | 2023-01-04 15:07 | Diagnostic Imaging Report ---
INDICATION: ICU patient, pneumonia. Clinical concern for pulmonary embolism. Chest pain. CORRELATION STUDY: Chest radiograph 01/04/2023 FINDINGS: Ventilation imaging not obtained. 5.5 mCi of technetium-99m MAA utilized for perfusion imaging. Multiplanar imaging demonstrates overall significant decrease perfusion to left lung compared to the right lung. Most noticeable at the mid and lower aspect. This corresponds to area of asymmetric opacity of the chest radiograph. IMPRESSION: 1. Prominent asymmetric decreased perfusion throughout the left lung compared to the right lung most pronounced at the mid and lower lung bryan. Likely associated with the area of a pulmonary opacity. Overall no probability for pulmonary embolism. Dictated by: Dictated on workstation # [id number]
[2023-01-04] MEDS: meTOprolol TARTRATE 25 MG (LOPRESSOR) TABLET PO SCH (20:30)
[2023-01-04] MEDS: cefTRIAXone 1 GM PRE-MIX 50 ML IV SCH (20:31)
[2023-01-04] MEDS ORDERED: AZITHROMYCIN INJECTION 500 MG in NS (IVPB) 250 ML IV ONE (21:00)
[2023-01-04 21:48] VITALS: BP 114/77
[2023-01-05 04:07] LABS: BASOPHILS % (AUTO) 1 % (0-10); HEMATOCRIT 32 % (40-54); MEAN CORPUSCULAR VOLUME 92 fL (80-99)
[2023-01-05 04:08] LABS: ABG BASE EXCESS 0.8 MMOL/L (-2.5-2.5); ABG OXYGEN SATURATION 98 % (94-100); ABG PCO2 40 MMHG (35-45); ABG PH 7.41 (7.37-7.43); ABG PO2 83 MMHG (79-93); ABG TCO2 26.4 MMOL/L (21.0-31.0); ALLENS TEST YES-POS; INSPIRED O2 45%; PATIENT TEMP 36.3; VENTILATOR NO
[2023-01-05 04:09] LABS: BASOPHILS # (AUTO) 0.1 10^3/uL (0.0-0.1); EOSINOPHILS % (AUTO) 0 % (0-10); HEMOGLOBIN 10.9 g/dL (13.3-17.7); LYMPHOCYTES # (AUTO) 0.8 10^3/uL (1.0-4.0); LYMPHOCYTES % (AUTO) 8 % (12-44); MEAN CORPUSCULAR HEMOGLOBIN 31 pg (25-34); MEAN CORPUSCULAR HGB CONC 34 g/dL (32-36); MEAN PLATELET VOLUME 11.3 fL (9.0-12.2); MONOCYTES # (AUTO) 0.3 10^3/uL (0.0-1.0); MONOCYTES % (AUTO) 3 % (0-12); NEUTROPHILS # (AUTO) 8.1 10^3/uL (1.8-7.8); NEUTROPHILS % (AUTO) 88 % (42-75); PLATELET COUNT 104 10^3/uL (130-400); WHITE BLOOD COUNT 9.3 10^3/uL (4.3-11.0)
[2023-01-05 04:27] LABS: ALBUMIN 2.8 GM/DL (3.2-4.5); BILIRUBIN,TOTAL 0.8 MG/DL (0.1-1.0); CALCIUM 8.6 MG/DL (8.5-10.1); CREATININE SERUM 1.32 MG/DL (0.60-1.30); MAGNESIUM 2.8 MG/DL (1.6-2.4); PHOSPHORUS 2.3 MG/DL (2.3-4.7); POTASSIUM 3.6 MMOL/L (3.6-5.0)
[2023-01-05] MEDS: KCL 20 MEQ TAB (K-DUR) PO SCH (04:33)
[2023-01-05] MEDS: POTASSIUM CL 10MEQ/50ML IVPB 50 ML IV SCH (04:33)
--- NOTE | 2023-01-05 06:45 | Diagnostic Imaging Report ---
INDICATION: Pneumonia follow-up Portable chest 4:16 AM There are bilateral perihilar infiltrates worse on left than on the right. Interval appearance of infiltrates appears slightly more extensive and consolidated compared to previous day. IMPRESSION: Bilateral perihilar infiltrates appear slightly worse compared to previous day. Dictated by: Dictated on workstation # [id number]
[2023-01-05 07:01] VITALS: BP 91/64
[2023-01-05] MEDS: RT-ALBUTEROL SULF 2.5 MG/3 ML PRE-MIX VIAL INH SCH ×3 (07:01→21:44)
[2023-01-05] MEDS ORDERED: KCL 20 MEQ TAB (K-DUR) PO ONE (08:00)
--- NOTE | 2023-01-05 08:33 | Progress Note - Cardiology ---
Cardiology SOAP Progress Note Subjective: Bi-pap in place Continues to report freq cough C/O ACW soreness No c/o n/v/d Objective: I&O/Vital Signs 01/05/23 01/05/23 01/05/23 01/05/23 21:44 21:45 22:00 22:30 Pulse 99 104 102 Resp 23 39 35 B/P (MAP) 102/66 (79) Pulse Ox 94 93 92 88 O2 Delivery Vapotherm Vapotherm Vapotherm Vapotherm O2 Flow Rate 30.00 30.00 30.00 35.00 60.00 60.00 80.00 FiO2 60 01/05/23 01/05/23 01/06/23 01/06/23 23:00 23:59 00:00 01:00 Pulse 100 93 90 Resp 38 31 32 B/P (MAP) 119/69 (97) 103/63 (76) 108/70 (82) Pulse Ox 95 94 98 98 O2 Delivery Vapotherm Vapotherm Vapotherm Vapotherm O2 Flow Rate 35.00 35.00 35.00 35.00 80.00 80.00 80.00 FiO2 80 01/06/23 01/06/23 01/06/23 01/06/23 01:00 02:00 03:00 03:34 Pulse 90 90 87 B/P (MAP) 99/69 (76) 108/66 (81) Pulse Ox 99 99 99 O2 Delivery Vapotherm Vapotherm Vapotherm O2 Flow Rate 35.00 35.00 35.00 80.00 80.00 FiO2 80 01/06/23 01/06/23 01/06/23 01/06/23 04:00 04:00 05:00 05:20 Pulse 92 89 93 Resp 35 28 30 B/P (MAP) 121/78 (92) 102/62 (75) Pulse Ox 94 100 97 100 O2 Delivery Vapotherm Vapotherm Vapotherm Vapotherm O2 Flow Rate 35.00 35.00 35.00 28.00 60.00 60.00 60.00 FiO2 60 01/06/23 01/06/23 01/06/23 01/06/23 06:00 07:00 07:02 07:13 Pulse 87 89 92 Resp 30 28 B/P (MAP) 141/83 (102) 136/89 (105) Pulse Ox 98 97 98 O2 Delivery Vapotherm Vapotherm Vapotherm O2 Flow Rate 28.00 28.00 28.00 60.00 60.00 FiO2 60 01/06/23 01/06/23 01/06/23 07:47 08:00 09:00 Temp 36.6 Pulse 98 99 Resp 27 25 B/P (MAP) 107/74 (85) 118/81 (93) Pulse Ox 91 97 O2 Delivery Vapotherm Vapotherm O2 Flow Rate 28.00 28.00 60.00 60.00 01/05/23 23:59 Intake Total 600 ml Output Total 990 ml Balance -390 ml Weight (Pounds): 172 Weight (Ounces): 7.0 Weight (Calculated Kilograms): 78.032622 Constitutional: AAO x 3, well-developed, well-nourished Respiratory: chest expansion is symmetric, chest is bilaterally symmetric, rhonchi (scattered), other (diminished bases bilat) Cardiovascular: No JVD; tachycardia, S1 and S2 Gastrointestional: No tender; soft, round, audible bowel sounds Extremities: no lower extremity edema bilateral Neurologic/Psychiatric: grossly intact (moves all extremities) Skin: No rash on exposed areas, No ulcerations on exposed areas Results/Procedures: Labs Laboratory Tests 01/05/23 11:25: Glucometer 93 01/06/23 04:08: White Blood Count 8.1, Red Blood Count 3.67L, Hemoglobin 11.4L, Hematocrit 34L, Mean Corpuscular Volume 92, Mean Corpuscular Hemoglobin 31, Mean Corpuscular Hemoglobin Concent 34, Red Cell Distribution Width 13.3, Platelet Count 125L, Mean Platelet Volume 11.4, Immature Granulocyte % (Auto) 1, Neutrophils (%) (Auto) 82H, Lymphocytes (%) (Auto) 9L, Monocytes (%) (Auto) 7, Eosinophils (%) (Auto) 0, Basophils (%) (Auto) 1, Neutrophils # (Auto) 6.6, Lymphocytes # (Auto) 0.8L, Monocytes # (Auto) 0.6, Eosinophils # (Auto) 0.0, Basophils # (Auto) 0.1, Immature Granulocyte # (Auto) 0.1, Percent Immature Platelet Fraction 7.2, Sodium Level 134L, Potassium Level 4.0, Chloride Level 102, Carbon Dioxide Level 23, Anion Gap 9, Blood Urea Nitrogen 22H, Creatinine 0.95, Estimat Glomerular Filtration Rate 86, BUN/Creatinine Ratio 23, Glucose Level 87, Calcium Level 8.7 , Corrected Calcium 9.8, Phosphorus Level 2.9, Magnesium Level 1.9, Total Bilirubin 0.7, Aspartate Amino Transf (AST/SGOT) 33, Alanine Aminotransferase (ALT/SGPT) 22, Alkaline Phosphatase 83, Total Protein 5.9L, Albumin 2.6L Microbiology 01/04/23 Blood Culture - Preliminary, Resulted No growth 01/04/23 Urine Culture - Final, Complete NO GROWTH 01/03/23 MRSA Screen - Final, Complete MRSA not isolated A/P: Assessment: Chest discomfort with elevated troponin - NSTEMI vs Type 2 [place] secondary to sepsis/hypoxia - Echo on 01/04/23: LVEF 50-55%, PASP 25-30 mmHg Pneumonia with sepsis - management per medical services UTI - management per medical services Hypotension - likely secondary to sepsis - improved Tachycardia - likely d/t sepsis/pneumonia - improving SANDY - likely secondary to hypotension/sepsis - continues to improve ? Hematuria - management per medical services Reports h/o heavy ETOH usage in the past - reports occ usage Hypo-magnesium - resolved Mild thrombocytopenia - undetermined etiology - essentially unchanged from yesterday Plan: Chest discomfort - minimally elevated troponin - NSTEMI vs Type 2 IA secondary to sepsis/hypoxia - currently receiving treatment dosing lovenox - continue - continue ASA - Continue BB as tolerated and BP will allow Sepsis/pneumonia - management per medical services UTI - management per medical services SANDY - improving with IVF - continue to monitor Hypotension -improved Mild thrombocytopenia - undetermined etiology - monitor EMILY MADDEN Jan 05, 2023 08:33
--- NOTE | 2023-01-05 08:38 | Progress Note ---
Subjective Subjective/Events-last exam Has a lot of phlegm in throat. Hasn't had BM since arrival. Has pain in left hip which he has had quite a bit in the past, but not much lately. Shortly before coming here, he walked a few blocks and it hurt so bad he had to stop before he could walk again. Focused Exam Lactate Level 01/03/23 22:55: Lactic Acid Level 2.74*H 01/04/23 04:13: Lactic Acid Level 1.62 01/04/23 13:55: Lactic Acid Level 1.42 Objective Exam Last Set of Vital Signs Vital Signs Date Time Temp Pulse Resp B/P (MAP) Pulse Ox O2 Delivery O2 Flow Rate FiO2 01/05/23 07:19 97 01/05/23 07:01 32 96 45.00 01/05/23 06:00 100/78 (85) NIV Bilevel 01/05/23 03:10 45 01/05/23 03:00 36.3 Capillary Refill : Less Than 3 Seconds I&O Intake and Output 01/05/23 00:00 Intake Total 3755 ml Output Total 1575 ml Balance 2180 ml Intake Oral 1950 ml IV Total 1805 ml Output Urine Total 1575 ml General: Alert, No Acute Distress Lungs: Other (ronchi, bipap in place) Heart: Regular Rate Abdomen: Normal Bowel Sounds, No Tenderness, Other (distended) Neuro: Normal Speech Psych/Mental Status: Mood NL Results/Procedures Lab Laboratory Tests 01/04/23 10:50: Urine Color AMBERH, Urine Clarity SL CLOUDY, Urine pH 6.0, Urine Specific [place] >=1.030, Urine Protein 2+H, Urine Glucose (UA) NEGATIVE, Urine Ketones NEGATIVE, Urine Nitrite NEGATIVE, Urine Bilirubin NEGATIVE, Urine Urobilinogen 2.0, Urine Leukocyte Esterase NEGATIVE, Urine RBC (Auto) 3+H, Urine RBC 10-25H, Urine WBC 0-2, Urine Crystals NONE, Urine Bacteria MODERATEH, Urine Casts PRESEN T, Urine Granular Casts 0-2H, Urine Mucus NEGATIVE, Urine Culture Indicated YES, Urine Legionella pneumophilia Ag Negative 01/04/23 12:06: Glucometer 101 01/04/23 13:55: Lactic Acid Level 1.42 01/04/23 18:17: Glucometer 133H 01/04/23 23:31: Glucometer 90 01/05/23 03:55: White Blood Count 9.3, Red Blood Count 3.49L, Hemoglobin 10.9L, Hematocrit 32L, Mean Corpuscular Volume 92, Mean Corpuscular Hemoglobin 31, Mean Corpuscular Hemoglobin Concent 34, Red Cell Distribution Width 13.2, Platelet Count 104L, Mean Platelet Volume 11.3, Immature Granulocyte % (Auto) 0, Neutrophils (%) (Auto) 88H, Lymphocytes (%) (Auto) 8L, Monocytes (%) (Auto) 3, Eosinophils (%) (Auto) 0, Basophils (%) (Auto) 1, Neutrophils # (Auto) 8.1H, Lymphocytes # (Auto) 0.8L, Monocytes # (Auto) 0.3, Eosinophils # (Auto) 0.0, Basophils # (Auto) 0.1, Immature Granulocyte # (Auto) 0.0, Percent Immature Platelet Fraction 7.5, Sodium Level 136, Potassium Level 3.6, Chloride Level 104, Carbon Dioxide Level 23, Anion Gap 9, Blood Urea Nitrogen 30H, Creatinine 1.32H, Estimat Glomerular Filtration Rate 58, BUN/Creatinine Ratio 23, Glucose Level 81, Calcium Level 8.6, Corrected Calcium 9.6, Phosphorus Level 2.3, Magnesium Level 2.8H, Total Bilirubin 0.8, Aspartate Amino Transf (AST/SGOT) 32, Alanine Aminotransferase (ALT/SGPT) 18, Alkaline Phosphatase 52, Total Protein 6.0L, Albumin 2.8L 01/05/23 04:00: Blood Gas Puncture Site LT RADIAL, Blood Gas Patient Temperature 36.3, Arterial Blood pH 7.41, Arterial Blood Partial Pressure CO2 40, Arterial Blood Partial Pressure O2 83, Arterial Blood HCO3 25, Arterial Blood Total CO2 26.4, Arterial Blood Oxygen Saturation 98, Arterial Blood Base Excess 0.8, Ta Test YES-POS, Blood Gas Ventilator Setting NO, Blood Gas Inspired Oxygen 45% Microbiology 01/03/23 MRSA Screen - Final, Complete MRSA not isolated 01/03/23 Blood Culture - Preliminary, Resulted No growth Radiology NAME: PIPO BENOIT [facility] REC#: [id number] PT STATUS: ADM IN : 1950 PHYSICIAN: LASHA SOLORZANO DO ADMIT DATE: 01/03/23/ICU Signed Date of Exam:01/04/23 CHEST 1 VIEW, AP/PA ONLY INDICATION: Pneumonia, followup. TECHNIQUE: Single view chest 4:08 AM. CORRELATION STUDY: 01/03/2023 FINDINGS: Airspace opacity in left mid and lower lung field as well as right mid and lower lung bryan present. Overall appears adversely changed and increased from prior. Heart size and mediastinum are generally stable. Question small left effusion. IMPRESSION: 1. Bilateral pulmonary infiltrate-like opacities at left greater than right overall appear adversely changed from prior. Dictated by: Dictated on workstation # [id number] Dict: 01/04/23 0739 Trans: 01/04/23 0804 CV [id number] Interpreted by: EMILY LENNON DO Electronically signed by: EMILY LENNON DO 01/04/23 0804 Assessment/Plan Assessment/Plan (1) NSTEMI (non-ST elevated myocardial infarction) Status: Acute Assessment & Plan: Suspect possible NSTEMI vs cardiac strain. Troponin slightly elevated, Cardiology consulted, appreciate recommendations. (2) Pneumonia Status: Acute Assessment & Plan: Started on azithromycin and ceftriaxone. Qualifiers: (3) Sepsis Status: Acute Assessment & Plan: Suspect secondary to pneumonia. SANDY improving. Qualifiers: (4) Respiratory failure Status: Acute Assessment & Plan: Hypoxia resolved on supplemental oxygen by nasal cannula 01/05 requiring bipap this morning Qualifiers: Qualified Codes: J96.01 - Acute respiratory failure with hypoxia (5) SANDY (acute kidney injury) Status: Acute Assessment & Plan: Improving, monitor closely. (6) D-dimer, elevated Status: Acute Assessment & Plan: Possibly related to SANDY, however with hypoxia, concern for PE. Cannot get CTA due to renal function, V/Q low probability, enoxaparin decreased to prophylaxis dosing. Clinical Quality Measures DVT/VTE Risk/Contraindication: Contraindications-Mechi: Other *list below* Other: poss dvt MINDI SWARTZ MD Jan 05, 2023 08:38
[2023-01-05] MEDS: meTOprolol TARTRATE 25 MG (LOPRESSOR) TABLET PO SCH ×2 (08:47→21:41)
[2023-01-05] MEDS: guaiFENesin (MUCINEX) 600 MG TAB PO SCH ×2 (08:47→21:40)
[2023-01-05] MEDS: DOCUSATE SODIUM 100 MG (COLACE) CAP PO SCH ×2 (08:47→21:40)
[2023-01-05] MEDS: ASPIRIN E.C. 81 MG (ECOTRIN) TAB PO SCH (08:50)
[2023-01-05] MEDS: SENNOSIDES 8.6 MG (SENOKOT) TAB PO SCH ×2 (08:50→21:40)
[2023-01-05] MEDS: ENOXAPARIN 40 MG/0.4 ML (LOVENOX) SYR SC SCH (08:50)
[2023-01-05] MEDS ORDERED: polyethylene glycoL POWDER 17 GM (MIRALAX) PACK PO NR (09:00)
[2023-01-05] MEDS: ACETAMINOPHEN 325 MG TABLET PO PRN (09:01)
[2023-01-05] MEDS: ALPRAZolam 0.25 MG (XANAX) TAB PO PRN (09:43)
--- NOTE | 2023-01-05 12:19 | Tele-ICU Progress Note ---
Subjective Date Seen by a Provider: Jan 05, 2023 Time Seen by a Provider: 12:19 Subjective/Events-last exam (Tele-ICU Physician , Progress Note ) Service provided via interactive audio and video telecommunications E-CARE system to a patient admitted to ICU bed in [facility]. Patient is seen today due to persistent need of ICU care Available chart/ vitals / labs / Images reviewed Video assessment done using teleICU camera, rest of exam as per RN Discussed with RN Events overnight : Afebrile hemodynamically stable Respiratory - VT I/O =++ Drips: Pressors- no Hospital course: 01/03: 72 y/o male presented to the ED with chest pain and hypoxia. Admitted with NSTEMI, SANDY, A/P Acute resp failure - VT 40L 100% - bipap at [facility] with WOB tachypnea ( tolerates well SANDY - improving PNA suspected (neg flu and covid) - sputum 01/05 - STREPTOCOCCUS PNEMONIAE - ceftriaxon , zmax - pum toilet CP - as per cards - ECHO 01/04 - EF 555 , RVSP 30 ELVE D dimer - VQ - low prob Anemia - delutional Anxiety - xanax prn Lines : periph , (Central Line Necessity Reviewed) Clark: void OG: Nutrition: po Analgesia: Anxiety/ delirium VTE Prophylaxis: татьяна Stress Ulcer Prophylaxis: Plans in collaboration with bedside consultants and IM MDs. Discussed with RN to reach out if any questions or concerns A total of 31minutes of critical care time was devoted to this patient today, required to treat and/or prevent further deterioration of critical care condition ( as above ) . I am remotely monitoring this patient from another state. I am unable to do the bedside exam, and history/physical and pertinent information is taken from other notes in the computer and bedside staff. Sepsis Event Evaluation Height, Weight, BMI Height: 5'6.00" Weight: 172lbs. 7.0oz. 78.091944ru; 30.33 BMI Method:Stated Focused Exam Lactate Level 01/03/23 22:55: Lactic Acid Level 2.74*H 01/04/23 04:13: Lactic Acid Level 1.62 01/04/23 13:55: Lactic Acid Level 1.42 Exam Exam Patient acknowledged, consented, and participated in this virtual visit which was conducted using real time audio/video Vital Signs Date Time Temp Pulse Resp B/P (MAP) Pulse Ox O2 Delivery O2 Flow Rate FiO2 01/05/23 12:18 37.1 01/05/23 11:00 98 30 109/69 (82) 96 Vapotherm 40.00 100.00 01/05/23 10:00 100 34 110/66 (81) 99 Vapotherm 40.00 100.00 01/05/23 09:00 107 30 116/86 (96) 91 Vapotherm 40.00 100.00 01/05/23 08:50 Vapotherm 40.00 100.00 01/05/23 08:00 102 40 100/68 (79) 94 NIV Bilevel 45.00 01/05/23 07:48 96 NIV Bilevel 45 01/05/23 07:19 97 01/05/23 07:01 101 32 96 45.00 01/05/23 07:00 105 40 91/64 (73) 92 NIV Bilevel 45.00 01/05/23 06:00 90 26 100/78 (85) 95 NIV Bilevel 45.00 01/05/23 05:00 93 30 124/78 (93) 96 NIV Bilevel 45.00 01/05/23 04:00 101 36 118/75 (89) 94 NIV Bilevel 45.00 01/05/23 03:10 95 NIV Bilevel 45 01/05/23 03:00 36.3 98 30 118/73 (88) 95 NIV Bilevel 45.00 01/05/23 02:43 96 36 95 NIV Bilevel 45.00 01/05/23 02:00 91 31 108/75 (83) 95 NIV Bilevel 50.00 01/05/23 01:00 97 105/60 (79) 96 NIV Bilevel 50.00 01/05/23 01:00 97 01/05/23 00:44 NIV Bilevel 50.00 01/05/23 00:00 104 101/73 (82) 96 NIV Bilevel 60.00 01/04/23 23:30 37.0 NIV Bilevel 60.00 01/04/23 23:25 96 NIV Bilevel 60 01/04/23 23:13 01/04/23 23:00 101 123/78 (106) NIV Bilevel 60.00 01/04/23 22:49 NIV Bilevel 60.00 01/04/23 22:23 NIV Bilevel 70.00 01/04/23 22:10 NIV Bilevel 80.00 01/04/23 22:01 NIV Bilevel 90.00 01/04/23 22:00 96 92/68 (79) 99 NIV Bilevel 100.00 01/04/23 21:48 92 34 99 100.00 01/04/23 21:47 NIV Bilevel 100.00 01/04/23 21:27 86 Vapotherm 40.00 100 01/04/23 21:00 98 25 114/77 (89) 88 Vapotherm 40.00 100.00 01/04/23 20:00 101 106/74 (86) 89 Vapotherm 40.00 100.00 01/04/23 19:30 92 Vapotherm 40.00 100 01/04/23 19:30 103 107/66 (77) 93 Vapotherm 40.00 100.00 01/04/23 19:15 104 130/69 (91) Vapotherm 40.00 100.00 01/04/23 19:11 36.4 01/04/23 19:00 36.8 101 27 136/81 (99) 93 Vapotherm 40.00 100.00 01/04/23 19:00 103 01/04/23 18:57 92 Vapotherm 40.00 70 01/04/23 18:00 99 31 102/87 (92) 92 Vapotherm 40.00 70.00 01/04/23 17:00 104 34 98/87 (91) 91 Vapotherm 40.00 70.00 01/04/23 16:15 92 Vapotherm 40.00 100 01/04/23 16:00 105 30 111/72 (85) Vapotherm 40.00 70.00 01/04/23 15:25 36.5 01/04/23 15:00 105 36 124/84 (97) 90 Vapotherm 40.00 70.00 01/04/23 14:44 92 Vapotherm 40.00 100 01/04/23 14:00 107 44 119/81 (94) 91 Vapotherm 40.00 70.00 01/04/23 13:00 117 44 116/74 (88) 94 Vapotherm 40.00 70.00 01/04/23 12:21 115 I & O 01/05/23 07:00 Intake Total 2330 ml Output Total 1775 ml Balance 555 ml Height & Weight Height: 5'6.00" Weight: 172lbs. 7.0oz. 78.934654vv; 30.33 BMI Method:Stated General Appearance: No Apparent Distress, WD/WN HEENT: PERRL/EOMI, TMs Normal, Normal ENT Inspection, Pharynx Normal Neck: Full Range of Motion, Normal Inspection, Non Tender, Supple Respiratory: Chest Non Tender, Wheezing, Other (Slightly disminished bilateral) Cardiovascular: No Edema, No Gallop, No JVD, Tachycardia Capillary Refill: Less Than 3 Seconds Peripheral Pulses: 2+ Dorsalis Pedis (R), 2+ Left Dors-Pedis (L) Gastrointestinal: normal bowel sounds, non tender, distended Extremity: Normal Capillary Refill, Normal Inspection, Normal Range of Motion, Non Tender Neurologic/Psychiatric: Alert, Oriented x3, No Motor/Sensory Deficits, Normal Mood/Affect, 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
--- NOTE | 2023-01-05 14:02 | Progress Note - Cardiology ---
Cardiology SOAP Progress Note Subjective: Continuing L-sided cp with deep insp and with coughing Shortness of breath modestly improved Gen weakness and malaise present No n/v/d No focal weakness Objective: I&O/Vital Signs 01/05/23 01/05/23 01/05/23 01/05/23 02:00 02:43 03:00 03:10 Temp 36.3 Pulse 91 96 98 Resp 31 36 30 B/P (MAP) 108/75 (83) 118/73 (88) Pulse Ox 95 95 95 95 O2 Delivery NIV Bilevel NIV Bilevel NIV Bilevel NIV Bilevel O2 Flow Rate 50.00 45.00 45.00 FiO2 45 01/05/23 01/05/23 01/05/23 01/05/23 04:00 05:00 06:00 07:00 Pulse 101 93 90 105 Resp 36 30 26 40 B/P (MAP) 118/75 (89) 124/78 (93) 100/78 (85) 91/64 (73) Pulse Ox 94 96 95 92 O2 Delivery NIV Bilevel NIV Bilevel NIV Bilevel NIV Bilevel O2 Flow Rate 45.00 45.00 45.00 45.00 01/05/23 01/05/23 01/05/23 01/05/23 07:01 07:19 07:48 08:00 Pulse 101 97 102 Resp 32 40 B/P (MAP) 100/68 (79) Pulse Ox 96 96 94 O2 Delivery NIV Bilevel NIV Bilevel O2 Flow Rate 45.00 45.00 FiO2 45 01/05/23 01/05/23 01/05/23 01/05/23 08:50 09:00 10:00 11:00 Pulse 107 100 98 Resp 30 34 30 B/P (MAP) 116/86 (96) 110/66 (81) 109/69 (82) Pulse Ox 91 99 96 O2 Delivery Vapotherm Vapotherm Vapotherm Vapotherm O2 Flow Rate 40.00 40.00 40.00 40.00 100.00 100.00 100.00 100.00 01/05/23 01/05/23 01/05/23 01/05/23 12:00 12:18 13:00 13:08 Temp 37.1 Pulse 96 95 94 Resp 24 25 B/P (MAP) 115/70 (85) 109/72 (84) Pulse Ox 99 99 O2 Delivery Vapotherm Vapotherm O2 Flow Rate 40.00 40.00 100.00 100.00 01/05/23 00:00 Intake Total 1455 ml Output Total 1075 ml Balance 380 ml Weight (Pounds): 172 Weight (Ounces): 7.0 Weight (Calculated Kilograms): 78.866483 Constitutional: AAO x 3, well-developed, well-nourished Respiratory: chest expansion is symmetric, chest is bilaterally symmetric, rhonchi (scattered), other (diminished bases bilat) Cardiovascular: No JVD; tachycardia, S1 and S2 Gastrointestional: No tender; soft, round, audible bowel sounds Extremities: no lower extremity edema bilateral Neurologic/Psychiatric: oriented x 3, other (moves all limbs equally) Skin: No rash on exposed areas, No ulcerations on exposed areas Results/Procedures: Labs Laboratory Tests 01/04/23 18:17: Glucometer 133H 01/04/23 23:31: Glucometer 90 01/05/23 03:55: White Blood Count 9.3, Red Blood Count 3.49L, Hemoglobin 10.9L, Hematocrit 32L, Mean Corpuscular Volume 92, Mean Corpuscular Hemoglobin 31, Mean Corpuscular Hemoglobin Concent 34, Red Cell Distribution Width 13.2, Platelet Count 104L, Mean Platelet Volume 11.3, Immature Granulocyte % (Auto) 0, Neutrophils (%) (Auto) 88H, Lymphocytes (%) (Auto) 8L, Monocytes (%) (Auto) 3, Eosinophils (%) (Auto) 0, Basophils (%) (Auto) 1, Neutrophils # (Auto) 8.1H, Lymphocytes # (Auto) 0.8L, Monocytes # (Auto) 0.3, Eosinophils # (Auto) 0.0, Basophils # (Auto) 0.1, Immature Granulocyte # (Auto) 0.0, Percent Immature Platelet Fraction 7.5, Sodium Level 136, Potassium Level 3.6, Chloride Level 104, Carbon Dioxide Level 23, Anion Gap 9, Blood Urea Nitrogen 30H, Creatinine 1.32H, Estimat Glomerular Filtration Rate 58, BUN/Creatinine Ratio 23, Glucose Level 81, Calcium Level 8.6, Corrected Calcium 9.6, Phosphorus Level 2.3, Magnesium Level 2.8H, Total Bilirubin 0.8, Aspartate Amino Transf (AST/SGOT) 32, Alanine Aminotransferase (ALT/SGPT) 18, Alkaline Phosphatase 52, Total Protein 6.0L, Albumin 2.8L 01/05/23 04:00: Blood Gas Puncture Site LT RADIAL, Blood Gas Patient Temperature 36.3, Arterial Blood pH 7.41, Arterial Blood Partial Pressure CO2 40, Arterial Blood Partial Pressure O2 83, Arterial Blood HCO3 25, Arterial Blood Total CO2 26.4, Arterial Blood Oxygen Saturation 98, Arterial Blood Base Excess 0.8, Ta Test YES-POS, Blood Gas Ventilator Setting NO, Blood Gas Inspired Oxygen 45% 01/05/23 09:10: Troponin I < 0.028 01/05/23 11:25: Glucometer 93 Microbiology 01/04/23 Blood Culture - Preliminary, Resulted No growth 01/04/23 Urine Culture - Final, Complete NO GROWTH 01/03/23 MRSA Screen - Final, Complete MRSA not isolated Laboratory Tests 01/03/23 19:38 01/04/23 04:13 01/05/23 03:55 A/P: Assessment: Pneumonia with sepsis and pleurisy Type 2 [place] secondary to sepsis/hypoxia - Echo on 01/04/23: LVEF 50-55%, PASP 25-30 mmHg UTI - management per medical services Hypotension - likely secondary to sepsis - improved Tachycardia - likely d/t sepsis/pneumonia - improving SANDY - likely secondary to hypotension/sepsis - continues to improve ? Hematuria - management per medical services Reports h/o heavy ETOH usage in the past - reports occ usage Hypo-magnesium - resolved Mild thrombocytopenia - undetermined etiology - essentially unchanged from yesterday Plan: * Change Lovenox to DVT prophylaxis dose * Continue iv fluids * Contin ASA and beta-ayaan * Monitor labs closely * MPI for cor risk stratification when clinically stable JOAN ALEJANDRO MD FACP [facility] CCDS Jan 05, 2023 14:02
[2023-01-05] MEDS: AZITHROMYCIN 250 MG TAB (ZITHROMAX) PO SCH (21:40)
[2023-01-05] MEDS: cefTRIAXone 1 GM PRE-MIX 50 ML IV SCH (21:41)
[2023-01-05] MEDS: AMITRIPTYLINE 150 MG (ELAVIL) TABLET PO SCH (21:41)
[2023-01-06] MEDS: RT-ALBUTEROL SULF 2.5 MG/3 ML PRE-MIX VIAL INH SCH ×4 (03:34→21:40)
[2023-01-06 04:21] LABS: BASOPHILS # (AUTO) 0.1 10^3/uL (0.0-0.1); BASOPHILS % (AUTO) 1 % (0-10); HEMATOCRIT 34 % (40-54); HEMOGLOBIN 11.4 g/dL (13.3-17.7); MEAN CORPUSCULAR HEMOGLOBIN 31 pg (25-34); MEAN CORPUSCULAR HGB CONC 34 g/dL (32-36); MEAN CORPUSCULAR VOLUME 92 fL (80-99)
[2023-01-06 04:24] LABS: EOSINOPHILS % (AUTO) 0 % (0-10); LYMPHOCYTES # (AUTO) 0.8 10^3/uL (1.0-4.0); LYMPHOCYTES % (AUTO) 9 % (12-44); MEAN PLATELET VOLUME 11.4 fL (9.0-12.2); MONOCYTES # (AUTO) 0.6 10^3/uL (0.0-1.0); MONOCYTES % (AUTO) 7 % (0-12); NEUTROPHILS # (AUTO) 6.6 10^3/uL (1.8-7.8); NEUTROPHILS % (AUTO) 82 % (42-75); PLATELET COUNT 125 10^3/uL (130-400); WHITE BLOOD COUNT 8.1 10^3/uL (4.3-11.0)
[2023-01-06 04:50] LABS: ALBUMIN 2.6 GM/DL (3.2-4.5); BILIRUBIN,TOTAL 0.7 MG/DL (0.1-1.0); CALCIUM 8.7 MG/DL (8.5-10.1); CREATININE SERUM 0.95 MG/DL (0.60-1.30); MAGNESIUM 1.9 MG/DL (1.6-2.4); PHOSPHORUS 2.9 MG/DL (2.3-4.7); TOTAL PROTEIN 5.9 GM/DL (6.4-8.2)
[2023-01-06] MEDS: KCL 20 MEQ TAB (K-DUR) PO SCH (04:52)
[2023-01-06] MEDS: POTASSIUM CL 10MEQ/50ML IVPB 50 ML IV SCH (04:52)
[2023-01-06] MEDS: MAGNESIUM 1 GM/100 ML IVPB 100 ML IV SCH ×3 (06:35→11:52)
[2023-01-06] MEDS: DOCUSATE SODIUM 100 MG (COLACE) CAP PO SCH ×2 (08:21→21:21)
[2023-01-06] MEDS: guaiFENesin (MUCINEX) 600 MG TAB PO SCH ×2 (08:21→21:21)
[2023-01-06] MEDS: SENNOSIDES 8.6 MG (SENOKOT) TAB PO SCH ×2 (08:21→21:22)
[2023-01-06] MEDS: meTOprolol TARTRATE 25 MG (LOPRESSOR) TABLET PO SCH ×2 (08:21→21:22)
[2023-01-06] MEDS: ASPIRIN E.C. 81 MG (ECOTRIN) TAB PO SCH (08:22)
[2023-01-06] MEDS: ENOXAPARIN 40 MG/0.4 ML (LOVENOX) SYR SC SCH (08:22)
--- NOTE | 2023-01-06 08:22 | Diagnostic Imaging Report ---
EXAMINATION: Chest 1 view HISTORY: Pneumonia COMPARISON: 01/05/2023 FINDINGS: There are unchanged moderate bilateral airspace opacities. Stable left effusion similar in size. No pneumothorax. Heart size is normal. IMPRESSION: 1. Unchanged moderate bilateral airspace opacities and small left effusion in keeping with pneumonia. Dictated by: Dictated on workstation # [id number]
--- NOTE | 2023-01-06 08:31 | Progress Note ---
Subjective Subjective/Events-last exam Pt reports coughing with any deep breath, isn't sure he's getting much better, but maybe a tiny bit. Focused Exam Lactate Level 01/03/23 22:55: Lactic Acid Level 2.74*H 01/04/23 04:13: Lactic Acid Level 1.62 01/04/23 13:55: Lactic Acid Level 1.42 Objective Exam Last Set of Vital Signs Vital Signs Date Time Temp Pulse Resp B/P (MAP) Pulse Ox O2 Delivery O2 Flow Rate FiO2 01/06/23 07:47 36.6 01/06/23 07:02 98 Vapotherm 28.00 60 01/06/23 06:00 87 30 141/83 (102) Capillary Refill : Less Than 3 Seconds I&O Intake and Output 01/06/23 00:00 Intake Total 1275 ml Output Total 1815 ml Balance -540 ml Intake Oral 1225 ml IV Total 50 ml Output Urine Total 1815 ml Lungs: Other (decreased air movement, worst at bases, cough with any significant inspiration) Heart: Regular Rate Abdomen: Normal Bowel Sounds, Other (distended, nontender) Neuro: Normal Speech Psych/Mental Status: Mood NL Results/Procedures Lab Laboratory Tests 01/05/23 09:10: Troponin I < 0.028 01/05/23 11:25: Glucometer 93 01/06/23 04:08: White Blood Count 8.1, Red Blood Count 3.67L, Hemoglobin 11.4L, Hematocrit 34L, Mean Corpuscular Volume 92, Mean Corpuscular Hemoglobin 31, Mean Corpuscular Hemoglobin Concent 34, Red Cell Distribution Width 13.3, Platelet Count 125L, Mean Platelet Volume 11.4, Immature Granulocyte % (Auto) 1, Neutrophils (%) (Auto) 82H, Lymphocytes (%) (Auto) 9L, Monocytes (%) (Auto) 7, Eosinophils (%) (Auto) 0, Basophils (%) (Auto) 1, Neutrophils # (Auto) 6.6, Lymphocytes # (Auto) 0.8L, Monocytes # (Auto) 0.6, Eosinophils # (Auto) 0.0, Basophils # (Auto) 0.1, Immature Granulocyte # (Auto) 0.1, Percent Immature Platelet Fraction 7.2, Sodium Level 134L, Potassium Level 4.0, Chloride Level 102, Carbon Dioxide Level 23, Anion Gap 9, Blood Urea Nitrogen 22H, Creatinine 0.95, Estimat Glomerular Filtration Rate 86, BUN/Creatinine Ratio 23, Glucose Level 87, Calcium Level 8.7, Corrected Calcium 9.8, Phosphorus Level 2.9, Magnesium Level 1.9, Total Bilirubin 0.7, Aspartate Amino Transf (AST/SGOT) 33, Alanine Aminotransferase (ALT/SGPT) 22, Alkaline Phosphatase 83, Total Protein 5.9L, Albumin 2.6L Microbiology 01/04/23 Blood Culture - Preliminary, Resulted No growth 01/04/23 Urine Culture - Final, Complete NO GROWTH 01/03/23 MRSA Screen - Final, Complete MRSA not isolated Radiology NAME: PIPO BENOIT [facility] REC#: [id number] PT STATUS: ADM IN : 1950 PHYSICIAN: LASHA SOLORZANO DO ADMIT DATE: 01/03/23/ICU Signed Date of Exam:01/04/23 CHEST 1 VIEW, AP/PA ONLY INDICATION: Pneumonia, followup. TECHNIQUE: Single view chest 4:08 AM. CORRELATION STUDY: 01/03/2023 FINDINGS: Airspace opacity in left mid and lower lung field as well as right mid and lower lung bryan present. Overall appears adversely changed and increased from prior. Heart size and mediastinum are generally stable. Question small left effusion. IMPRESSION: 1. Bilateral pulmonary infiltrate-like opacities at left greater than right overall appear adversely changed from prior. Dictated by: Dictated on workstation # [id number] Dict: 01/04/23 0739 Trans: 01/04/23 0804 [facility] [id number] Interpreted by: EMILY LENNON DO Electronically signed by: EMILY LENNON DO 01/04/23 0804 Assessment/Plan Assessment/Plan (1) NSTEMI (non-ST elevated myocardial infarction) Status: Acute Assessment & Plan: Suspect possible NSTEMI vs cardiac strain. Troponin slightly elevated, Cardiology consulted, appreciate recommendations. Planning further eval when stable. (2) Pneumonia Status: Acute Assessment & Plan: Started on azithromycin and ceftriaxone. Sputum culture with strep pneumo. Qualifiers: (3) Sepsis Status: Acute Assessment & Plan: Suspect secondary to pneumonia. SANDY resolved. Qualifiers: (4) Respiratory failure Status: Acute Assessment & Plan: Hypoxia resolved on supplemental oxygen by nasal cannula 01/05 requiring bipap this morning 01/06 on vapotherm, able to titrate down from 100% FiO2 to 60% FiO2, continue to wean as tolerated. Treating pneumonia as above. Qualifiers: Qualified Codes: J96.01 - Acute respiratory failure with hypoxia (5) SANDY (acute kidney injury) Status: Resolved Assessment & Plan: Improving, monitor closely. (6) D-dimer, elevated Status: Acute Assessment & Plan: Possibly related to SADNY, however with hypoxia, concern for PE. Cannot get CTA due to renal function, V/Q low probability, enoxaparin decreased to prophylaxis dosing. (7) DVT prophylaxis Status: Acute Assessment & Plan: Enoxaparin Clinical Quality Measures DVT/VTE Risk/Contraindication: Contraindications-Mechi: Other *list below* Other: poss dvt MINDI SWARTZ MD Jan 06, 2023 08:31
[2023-01-06 09:21] LABS: ABG BASE EXCESS 1.1 MMOL/L (-2.5-2.5); ABG OXYGEN SATURATION 89 % (94-100); ABG PCO2 42 MMHG (35-45); ABG PO2 52 MMHG (79-93); ABG TCO2 26.7 MMOL/L (21.0-31.0)
[2023-01-06 09:22] LABS: ALLENS TEST YES-POS; INSPIRED O2 7; PATIENT TEMP 36.6; VENTILATOR NO
[2023-01-06] MEDS ORDERED: REGADENOSON 0.4 MG/5 ML SYR (LEXISCAN) IV ONE (09:30)
--- NOTE | 2023-01-06 09:33 | Progress Note - Cardiology ---
Cardiology SOAP Progress Note Subjective: No cp or palp or syncope or shortness of breath No n/v/d No focal weakness Gen weakness and malaise present Objective: I&O/Vital Signs 01/05/23 01/05/23 01/05/23 01/05/23 21:44 21:45 22:00 22:30 Pulse 99 104 102 Resp 23 39 35 B/P (MAP) 102/66 (79) Pulse Ox 94 93 92 88 O2 Delivery Vapotherm Vapotherm Vapotherm Vapotherm O2 Flow Rate 30.00 30.00 30.00 35.00 60.00 60.00 80.00 FiO2 60 01/05/23 01/05/23 01/06/23 01/06/23 23:00 23:59 00:00 01:00 Pulse 100 93 90 Resp 38 31 32 B/P (MAP) 119/69 (97) 103/63 (76) 108/70 (82) Pulse Ox 95 94 98 98 O2 Delivery Vapotherm Vapotherm Vapotherm Vapotherm O2 Flow Rate 35.00 35.00 35.00 35.00 80.00 80.00 80.00 FiO2 80 01/06/23 01/06/23 01/06/23 01/06/23 01:00 02:00 03:00 03:34 Pulse 90 90 87 B/P (MAP) 99/69 (76) 108/66 (81) Pulse Ox 99 99 99 O2 Delivery Vapotherm Vapotherm Vapotherm O2 Flow Rate 35.00 35.00 35.00 80.00 80.00 FiO2 80 01/06/23 01/06/23 01/06/23 01/06/23 04:00 04:00 05:00 05:20 Pulse 92 89 93 Resp 35 28 30 B/P (MAP) 121/78 (92) 102/62 (75) Pulse Ox 94 100 97 100 O2 Delivery Vapotherm Vapotherm Vapotherm Vapotherm O2 Flow Rate 35.00 35.00 35.00 28.00 60.00 60.00 60.00 FiO2 60 01/06/23 01/06/23 01/06/23 01/06/23 06:00 07:00 07:02 07:13 Pulse 87 89 92 Resp 30 28 B/P (MAP) 141/83 (102) 136/89 (105) Pulse Ox 98 97 98 O2 Delivery Vapotherm Vapotherm Vapotherm O2 Flow Rate 28.00 28.00 28.00 60.00 60.00 FiO2 60 01/06/23 01/06/23 01/06/23 07:47 08:00 09:00 Temp 36.6 Pulse 98 99 Resp 27 25 B/P (MAP) 107/74 (85) 118/81 (93) Pulse Ox 91 97 O2 Delivery Vapotherm Vapotherm O2 Flow Rate 28.00 28.00 60.00 60.00 01/06/23 00:00 Intake Total 600 ml Output Total 990 ml Balance -390 ml Weight (Pounds): 172 Weight (Ounces): 7.0 Weight (Calculated Kilograms): 78.838137 Constitutional: AAO x 3, well-developed, well-nourished Respiratory: chest expansion is symmetric, chest is bilaterally symmetric, rhonchi (scattered), other (diminished bases bilat) Cardiovascular: No JVD; tachycardia, S1 and S2 Gastrointestional: No tender; soft, round, audible bowel sounds Extremities: no lower extremity edema bilateral Neurologic/Psychiatric: oriented x 3, other (moves all limbs equally) Skin: No rash on exposed areas, No ulcerations on exposed areas Results/Procedures: Labs Laboratory Tests 01/05/23 11:25: Glucometer 93 01/06/23 04:08: White Blood Count 8.1, Red Blood Count 3.67L, Hemoglobin 11.4L, Hematocrit 34L, Mean Corpuscular Volume 92, Mean Corpuscular Hemoglobin 31, Mean Corpuscular Hemoglobin Concent 34, Red Cell Distribution Width 13.3, Platelet Count 125L, Mean Platelet Volume 11.4, Immature Granulocyte % (Auto) 1, Neutrophils (%) (Auto) 82H, Lymphocytes (%) (Auto) 9L, Monocytes (%) (Auto) 7, Eosinophils (%) (Auto) 0, Basophils (%) (Auto) 1, Neutrophils # (Auto) 6.6, Lymphocytes # (Auto) 0.8L, Monocytes # (Auto) 0.6, Eosinophils # (Auto) 0.0, Basophils # (Auto) 0.1, Immature Granulocyte # (Auto) 0.1, Percent Immature Platelet Fraction 7.2, Sodium Level 134L, Potassium Level 4.0, Chloride Level 102, Carbon Dioxide Level 23, Anion Gap 9, Blood Urea Nitrogen 22H, Creatinine 0.95, Estimat Glomerular Filtration Rate 86, BUN/Creatinine Ratio 23, Glucose Level 87, Calcium Level 8.7, Corrected Calcium 9.8, Phosphorus Level 2.9, Magnesium Level 1.9, Total Bilirubin 0.7, Aspartate Amino Transf (AST/SGOT) 33, Alanine Aminotransferase (ALT/SGPT) 22, Alkaline Phosphatase 83, Total Protein 5.9L, Albumin 2.6L 01/06/23 08:19: Blood Gas Puncture Site L RADIAL, Blood Gas Patient Temperature 36.6, Arterial Blood pH 7.40, Arterial Blood Partial Pressure CO2 42, Arterial Blood Partial Pressure O2 52L, Arterial Blood HCO3 25, Arterial Blood Total CO2 26.7, Arterial Blood Oxygen Saturation 89L, Arterial Blood Base Excess 1.1, Ta Test YES-POS, Blood Gas Ventilator Setting NO, Blood Gas Inspired Oxygen 7 Microbiology 01/04/23 Blood Culture - Preliminary, Resulted No growth 01/04/23 Urine Culture - Final, Complete NO GROWTH 01/03/23 MRSA Screen - Final, Complete MRSA not isolated Laboratory Tests 01/05/23 03:55 01/06/23 04:08 A/P: Assessment: Pneumonia with sepsis and pleurisy Type 2 [place] secondary to sepsis/hypoxia - Echo on 01/04/23: LVEF 50-55%, PASP 25-30 mmHg UTI - management per medical services Hypotension - likely secondary to sepsis - improved Tachycardia - likely d/t sepsis/pneumonia - improving SANDY - likely secondary to hypotension/sepsis - continues to improve ? Hematuria - management per medical services Reports h/o heavy ETOH usage in the past - reports occ usage Hypo-magnesium - resolved Mild thrombocytopenia - undetermined etiology - improved on 01/06/23 Plan: * Contin ASA and beta-ayaan * Monitor labs closely * MPI for cor risk stratification, given cor risk factors. Plan for tomorrow JOAN ALEJANDRO MD FACP [facility] Jan 06, 2023 09:33
--- NOTE | 2023-01-06 10:42 | Tele-ICU Progress Note ---
Subjective Date Seen by a Provider: Jan 06, 2023 Time Seen by a Provider: 10:42 Subjective/Events-last exam (Tele-ICU Physician , Progress Note ) Service provided via interactive audio and video telecommunications E-CARE system to a patient admitted to ICU bed in [facility]. Patient is seen today due to persistent need of ICU care Available chart/ vitals / labs / Images reviewed Video assessment done using teleICU camera, rest of exam as per RN Discussed with RN Events overnight : Afebrile hemodynamically stable Respiratory - VT I/O NEG Drips: Pressors- no Hospital course: 01/03: 72 y/o male presented to the ED with chest pain and hypoxia. Admitted with NSTEMI, SANDY, 01/05- VT40L 100% 01/06 - VT 28L 60 % A/P Acute resp failure - VT 28L 60 % - IMPROVED [facility]OB tachypnea ( tolerates well SANDY -normalized - off IVF - normal po intake PNA LEFT (neg flu and covid) - sputum 01/05 - STREPTOCOCCUS PNEMONIAE - ceftriaxon , zmax - pum toilet CP - as per cards - ECHO 01/04 - EF 55% , RVSP 30 ELVE D dimer - VQ - low prob Anemia - delutional Anxiety - xanax prn Thrombocytopenia - stable , but NEW this admission - to follow up Lines : periph , (Central Line Necessity Reviewed) Clark: void OG: Nutrition: po Analgesia: Anxiety/ delirium VTE Prophylaxis: татьяна Stress Ulcer Prophylaxis: na Plans in collaboration with bedside consultants and IM MDs. Discussed with RN to reach out if any questions or concerns A total of 31minutes of critical care time was devoted to this patient today, required to treat and/or prevent further deterioration of critical care condition ( as above ) . I am remotely monitoring this patient from another state. I am unable to do the bedside exam, and history/physical and pertinent information is taken from other notes in the computer and bedside staff. Sepsis Event Evaluation Height, Weight, BMI Height: 5'6.00" Weight: 172lbs. 7.0oz. 78.210416vm; 30.33 BMI Method:Stated Focused Exam Lactate Level 01/03/23 22:55: Lactic Acid Level 2.74*H 01/04/23 04:13: Lactic Acid Level 1.62 01/04/23 13:55: Lactic Acid Level 1.42 Exam Exam Patient acknowledged, consented, and participated in this virtual visit which was conducted using real time audio/video Vital Signs Date Time Temp Pulse Resp B/P (MAP) Pulse Ox O2 Delivery O2 Flow Rate FiO2 01/06/23 09:00 99 25 118/81 (93) 97 Vapotherm 28.00 60.00 01/06/23 08:00 98 27 107/74 (85) 91 Vapotherm 28.00 60.00 01/06/23 08:00 94 Vapotherm 28.00 60 01/06/23 07:47 36.6 01/06/23 07:13 92 01/06/23 07:02 98 Vapotherm 28.00 60 01/06/23 07:00 89 28 136/89 (105) 97 Vapotherm 28.00 60.00 01/06/23 06:00 87 30 141/83 (102) 98 Vapotherm 28.00 60.00 01/06/23 05:20 93 30 100 Vapotherm 28.00 60.00 01/06/23 05:00 89 28 102/62 (75) 97 Vapotherm 35.00 60.00 01/06/23 04:00 92 35 121/78 (92) 100 Vapotherm 35.00 60.00 01/06/23 04:00 94 Vapotherm 35.00 60 01/06/23 03:34 99 Vapotherm 35.00 80 01/06/23 03:00 87 108/66 (81) 99 Vapotherm 35.00 80.00 01/06/23 02:00 90 99/69 (76) 99 Vapotherm 35.00 80.00 01/06/23 01:00 90 01/06/23 01:00 90 32 108/70 (82) 98 Vapotherm 35.00 80.00 01/06/23 00:00 93 31 103/63 (76) 98 Vapotherm 35.00 80.00 01/05/23 23:59 94 Vapotherm 35.00 80 01/05/23 23:00 100 38 119/69 (97) 95 Vapotherm 35.00 80.00 01/05/23 22:30 102 35 88 Vapotherm 35.00 80.00 01/05/23 22:00 104 39 102/66 (79) 92 Vapotherm 30.00 60.00 01/05/23 21:45 99 23 93 Vapotherm 30.00 60.00 01/05/23 21:44 94 Vapotherm 30.00 60 01/05/23 21:00 101 29 119/87 (99) 97 Vapotherm 30.00 95.00 01/05/23 20:00 94 Vapotherm 30.00 95 01/05/23 20:00 100 100/78 (82) 100 Vapotherm 30.00 95.00 01/05/23 19:00 102 01/05/23 19:00 101 36 102/85 (90) 90 Vapotherm 30.00 95.00 01/05/23 18:44 94 Vapotherm 30.00 95 01/05/23 18:00 93 35 111/74 (86) 91 Vapotherm 40.00 100.00 01/05/23 17:00 98 15 101/64 (76) 96 Vapotherm 40.00 100.00 01/05/23 16:00 98 48 108/71 (83) 99 Vapotherm 40.00 100.00 01/05/23 15:50 94 Vapotherm 30.00 95 01/05/23 15:39 36.9 01/05/23 15:00 96 36 104/69 (81) 97 Vapotherm 40.00 100.00 01/05/23 14:47 96 Vapotherm 30.00 95 01/05/23 14:00 97 31 104/83 (90) 93 Vapotherm 40.00 100.00 01/05/23 13:08 94 01/05/23 13:00 95 25 109/72 (84) 99 Vapotherm 40.00 100.00 01/05/23 12:18 37.1 01/05/23 12:05 94 Vapotherm 40.00 100 01/05/23 12:00 96 24 115/70 (85) 99 Vapotherm 40.00 100.00 01/05/23 11:00 98 30 109/69 (82) 96 Vapotherm 40.00 100.00 I & O 01/06/23 07:00 Intake Total 1250 ml Output Total 1965 ml Balance -715 ml Height & Weight Height: 5'6.00" Weight: 172lbs. 7.0oz. 78.088974vy; 30.33 BMI Method:Stated General Appearance: No Apparent Distress, WD/WN HEENT: PERRL/EOMI, TMs Normal, Normal ENT Inspection, Pharynx Normal Neck: Full Range of Motion, Normal Inspection, Non Tender, Supple Respiratory: Chest Non Tender, Wheezing, Other (Slightly disminished bilateral) Cardiovascular: No Edema, No Gallop, No JVD, Tachycardia Capillary Refill: Less Than 3 Seconds Peripheral Pulses: 2+ Dorsalis Pedis (R), 2+ Left Dors-Pedis (L) Gastrointestinal: normal bowel sounds, non tender, distended Extremity: Normal Capillary Refill, Normal Inspection, Normal Range of Motion, Non Tender Neurologic/Psychiatric: Alert, Oriented x3, No Motor/Sensory Deficits, Normal 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
[2023-01-06] MEDS: ACETAMINOPHEN 325 MG TABLET PO PRN (16:15)
[2023-01-06] MEDS: ALPRAZolam 0.25 MG (XANAX) TAB PO PRN (16:15)
[2023-01-06] MEDS: AZITHROMYCIN 250 MG TAB (ZITHROMAX) PO SCH (21:21)
[2023-01-06] MEDS: AMITRIPTYLINE 150 MG (ELAVIL) TABLET PO SCH (21:21)
[2023-01-06] MEDS: cefTRIAXone 1 GM PRE-MIX 50 ML IV SCH (21:22)
[2023-01-07] MEDS: RT-ALBUTEROL SULF 2.5 MG/3 ML PRE-MIX VIAL INH SCH ×4 (02:30→21:40)
[2023-01-07 05:21] LABS: BASOPHILS # (AUTO) 0.1 10^3/uL (0.0-0.1); BASOPHILS % (AUTO) 1 % (0-10); EOSINOPHILS % (AUTO) 0 % (0-10); HEMATOCRIT 34 % (40-54); HEMOGLOBIN 11.4 g/dL (13.3-17.7); LYMPHOCYTES # (AUTO) 0.9 10^3/uL (1.0-4.0); LYMPHOCYTES % (AUTO) 13 % (12-44); MEAN CORPUSCULAR HEMOGLOBIN 31 pg (25-34); MEAN CORPUSCULAR HGB CONC 34 g/dL (32-36); MEAN CORPUSCULAR VOLUME 91 fL (80-99); MEAN PLATELET VOLUME 11.6 fL (9.0-12.2); MONOCYTES # (AUTO) 0.7 10^3/uL (0.0-1.0); MONOCYTES % (AUTO) 10 % (0-12); NEUTROPHILS # (AUTO) 5.4 10^3/uL (1.8-7.8); NEUTROPHILS % (AUTO) 75 % (42-75); PLATELET COUNT 151 10^3/uL (130-400); WHITE BLOOD COUNT 7.2 10^3/uL (4.3-11.0)
[2023-01-07 05:36] LABS: ALBUMIN 2.8 GM/DL (3.2-4.5); POTASSIUM 4.1 MMOL/L (3.6-5.0)
[2023-01-07 05:38] LABS: CALCIUM 8.6 MG/DL (8.5-10.1)
[2023-01-07 05:41] LABS: BILIRUBIN,TOTAL 0.7 MG/DL (0.1-1.0)
[2023-01-07 05:42] LABS: CREATININE SERUM 0.87 MG/DL (0.60-1.30); PHOSPHORUS 3.7 MG/DL (2.3-4.7)
[2023-01-07] MEDS: POTASSIUM CL 10MEQ/50ML IVPB 50 ML IV SCH (05:44)
[2023-01-07 05:45] LABS: MAGNESIUM 1.8 MG/DL (1.6-2.4)
[2023-01-07] MEDS: KCL 20 MEQ TAB (K-DUR) PO SCH (05:45)
[2023-01-07] MEDS: MAGNESIUM 1 GM/100 ML IVPB 100 ML IV SCH ×2 (05:53→06:04)
[2023-01-07] MEDS ORDERED: MAGNESIUM 1 GM/100 ML IVPB 200 ML IV ONE (06:02)
[2023-01-07 06:26] VITALS: BP 112/68
--- NOTE | 2023-01-07 06:41 | Diagnostic Imaging Report ---
INDICATION: Pneumonia COMPARISONS: 01/06/2023 FINDINGS: Single view chest shows the cardiac contour to be upper limits of normal. There is patchy 5 lobe alveolar consolidations the pattern and distribution is similar to the previous study. There may be slight improvement in the left lower lobe consolidation. There is no effusion or pneumothorax. Soft tissues and bony thorax are unchanged. IMPRESSION: Extensive 5 lobe alveolar infiltrate with slight improvement in the left lower lobe consolidation. Dictated by: Dictated on workstation # [id number]
[2023-01-07 06:52] LABS: ABG BASE EXCESS 2.1 MMOL/L (-2.5-2.5); ABG OXYGEN SATURATION 98 % (94-100); ABG PCO2 45 MMHG (35-45); ABG PH 7.39 (7.37-7.43); ABG PO2 83 MMHG (79-93)
[2023-01-07 06:53] LABS: ALLENS TEST POSITIVE; VENTILATOR YES
--- NOTE | 2023-01-07 09:12 | Progress Note - Cardiology ---
Cardiology SOAP Progress Note Subjective: Sitting up in bed Requiring Bi-pap and Vapo-therm He feels his breathing is better at this time No c/o CP or palpitations Objective: I&O/Vital Signs 01/06/23 01/06/23 01/07/23 01/07/23 22:00 23:59 00:00 00:48 Temp 36.6 Pulse 93 B/P (MAP) 142/94 (110) Pulse Ox 93 95 O2 Delivery NIV Bilevel Vapotherm NIV Bilevel O2 Flow Rate 45.00 30.00 45.00 FiO2 50 01/07/23 01/07/23 01/07/23 01/07/23 01:00 02:00 02:31 03:00 Pulse 100 98 102 B/P (MAP) 130/88 (102) 124/70 (88) Pulse Ox 93 96 93 O2 Delivery Vapotherm Vapotherm Vapotherm O2 Flow Rate 20.00 20.00 20.00 50.00 50.00 FiO2 50 01/07/23 01/07/23 01/07/23 01/07/23 04:00 04:03 05:00 06:00 Pulse 104 101 101 B/P (MAP) 107/76 (86) 121/74 (90) 112/68 (83) Pulse Ox 94 94 95 94 O2 Delivery NIV Bilevel NIV Bilevel NIV Bilevel NIV Bilevel O2 Flow Rate 45.00 45.00 45.00 FiO2 45 01/07/23 01/07/23 01/07/23 01/07/23 06:26 07:00 08:00 08:00 Temp 36.4 Pulse 98 98 94 Resp 30 16 B/P (MAP) 119/67 (84) Pulse Ox 94 94 95 O2 Delivery NIV Bilevel O2 Flow Rate 45.00 FiO2 45 01/07/23 00:00 Intake Total 1300 ml Output Total 1350 ml Balance -50 ml Weight (Pounds): 172 Weight (Ounces): 7.0 Weight (Calculated Kilograms): 78.187198 Constitutional: AAO x 3, well-developed, well-nourished Respiratory: chest expansion is symmetric, chest is bilaterally symmetric, rhonchi (scattered), other (diminished throughout with coarse breath sounds) Cardiovascular: No JVD; tachycardia, S1 and S2 Gastrointestional: No tender; soft, round, audible bowel sounds Extremities: no lower extremity edema bilateral Neurologic/Psychiatric: oriented x 3, other (moves all limbs equally) Skin: No rash on exposed areas, No ulcerations on exposed areas Results/Procedures: Labs Laboratory Tests 01/07/23 03:52: White Blood Count 7.2, Red Blood Count 3.71L, Hemoglobin 11.4L, Hematocrit 34L, Mean Corpuscular Volume 91, Mean Corpuscular Hemoglobin 31, Mean Corpuscular Hemoglobin Concent 34, Red Cell Distribution Width 13.2, Platelet Count 151, Mean Platelet Volume 11.6, Immature Granulocyte % (Auto) 2, Neutrophils (%) (Auto) 75, Lymphocytes (%) (Auto) 13, Monocytes (%) (Auto) 10, Eosinophils (%) (Auto) 0, Basophils (%) (Auto) 1, Neutrophils # (Auto) 5.4, Lymphocytes # (Auto) 0.9L, Monocytes # (Auto) 0.7, Eosinophils # (Auto) 0.0, Basophils # (Auto) 0.1, Immature Granulocyte # (Auto) 0.2H, Sodium Level 136, Potassium Level 4.1, Chloride Level 103, Carbon Dioxide Level 21, Anion Gap 12, Blood Urea Nitrogen 15, Creatinine 0.87, Estimat Glomerular Filtration Rate 92, BUN/Creatinine Ratio 17, Glucose Level 91, Calcium Level 8.6, Corrected Calcium 9.6, Phosphorus Level 3.7, Magnesium Level 1.8, Total Bilirubin 0.7, Aspartate Amino Transf (AST/SGOT) 61H, Alanine Aminotransferase (ALT/SGPT) 45, Alkaline Phosphatase 94, Total Protein 6.0L, Albumin 2.8L 01/07/23 06:45: Blood Gas Puncture Site R RADIAL, Blood Gas Patient Temperature 37.0, Arterial Blood pH 7.39, Arterial Blood Partial Pressure CO2 45, Arterial Blood Partial P ressure O2 83, Arterial Blood HCO3 27, Arterial Blood Total CO2 28.0, Arterial Blood Oxygen Saturation 98, Arterial Blood Base Excess 2.1, Ta Test POSITIVE, Blood Gas Ventilator Setting YES, Blood Gas Inspired Oxygen Microbiology 01/04/23 Blood Culture - Preliminary, Resulted No growth 01/04/23 Urine Culture - Final, Complete NO GROWTH 01/03/23 MRSA Screen - Final, Complete MRSA not isolated A/P: Assessment: Pneumonia with sepsis and pleurisy Type 2 DC secondary to sepsis/hypoxia - Echo on 01/04/23: LVEF 50-55%, PASP 25-30 mmHg UTI - management per medical services Hypotension - likely secondary to sepsis - improved Tachycardia - likely d/t sepsis/pneumonia - improving SANDY - likely secondary to hypotension/sepsis - continues to improve ? Hematuria - management per medical services Reports h/o heavy ETOH usage in the past - reports occ usage Hypo-magnesium - resolved Mild thrombocytopenia - undetermined etiology - improved on 01/06/23 Plan: * Continue ASA and beta-ayaan * Monitor labs closely * MPI for cor risk stratification, given cor risk factors had been planned for today, however d/t increasing oxygen demand requiring Bi-pap we will wait until his resp status is more stable. No c/o EMILY RAMIREZ Jan 07, 2023 09:12
[2023-01-07] MEDS: ENOXAPARIN 40 MG/0.4 ML (LOVENOX) SYR SC SCH (09:16)
[2023-01-07] MEDS: ASPIRIN E.C. 81 MG (ECOTRIN) TAB PO SCH (09:16)
[2023-01-07] MEDS: DOCUSATE SODIUM 100 MG (COLACE) CAP PO SCH ×2 (09:16→20:27)
[2023-01-07] MEDS: meTOprolol TARTRATE 25 MG (LOPRESSOR) TABLET PO SCH ×2 (09:16→20:27)
[2023-01-07] MEDS: SENNOSIDES 8.6 MG (SENOKOT) TAB PO SCH ×2 (09:17→20:27)
[2023-01-07] MEDS: guaiFENesin (MUCINEX) 600 MG TAB PO SCH ×2 (09:17→20:27)
--- NOTE | 2023-01-07 09:42 | Progress Note - Cardiology ---
Cardiology SOAP Progress Note Subjective: Worse breathing today No cp No palp or syncope No n/v/d Gen weakness No focal weakness Objective: I&O/Vital Signs 01/06/23 01/06/23 01/06/23 01/07/23 21:44 22:00 23:59 00:00 Pulse 102 93 Resp 28 B/P (MAP) 142/94 (110) Pulse Ox 96 93 95 O2 Delivery NIV Bilevel Vapotherm NIV Bilevel O2 Flow Rate 45.00 45.00 30.00 45.00 FiO2 50 01/07/23 01/07/23 01/07/23 01/07/23 00:48 01:00 02:00 02:31 Temp 36.6 Pulse 100 98 B/P (MAP) 130/88 (102) Pulse Ox 93 96 O2 Delivery Vapotherm Vapotherm O2 Flow Rate 20.00 20.00 50.00 FiO2 50 01/07/23 01/07/23 01/07/23 01/07/23 03:00 04:00 04:03 05:00 Pulse 102 104 101 B/P (MAP) 124/70 (88) 107/76 (86) 121/74 (90) Pulse Ox 93 94 94 95 O2 Delivery Vapotherm NIV Bilevel NIV Bilevel NIV Bilevel O2 Flow Rate 20.00 45.00 45.00 50.00 FiO2 45 01/07/23 01/07/23 01/07/23 01/07/23 06:00 06:26 07:00 08:00 Pulse 101 98 98 Resp 30 B/P (MAP) 112/68 (83) Pulse Ox 94 94 94 O2 Delivery NIV Bilevel NIV Bilevel O2 Flow Rate 45.00 45.00 FiO2 45 01/07/23 08:00 Temp 36.4 Pulse 94 Resp 16 B/P (MAP) 119/67 (84) Pulse Ox 95 01/07/23 00:00 Intake Total 1300 ml Output Total 1350 ml Balance -50 ml Weight (Pounds): 172 Weight (Ounces): 7.0 Weight (Calculated Kilograms): 78.314593 Constitutional: AAO x 3, well-developed, well-nourished Respiratory: chest expansion is symmetric, chest is bilaterally symmetric, rhonchi (scattered), other (diminished throughout with coarse breath sounds) Cardiovascular: No JVD; tachycardia, S1 and S2 Gastrointestional: No tender; soft, round, audible bowel sounds Extremities: no lower extremity edema bilateral Neurologic/Psychiatric: oriented x 3, other (moves all limbs equally) Skin: No rash on exposed areas, No ulcerations on exposed areas Results/Procedures: Labs Laboratory Tests 01/07/23 03:52: White Blood Count 7.2, Red Blood Count 3.71L, Hemoglobin 11.4L, Hematocrit 34L, Mean Corpuscular Volume 91, Mean Corpuscular Hemoglobin 31, Mean Corpuscular Hemoglobin Concent 34, Red Cell Distribution Width 13.2, Platelet Count 151, Mean Platelet Volume 11.6, Immature Granulocyte % (Auto) 2, Neutrophils (%) (Auto) 75, Lymphocytes (%) (Auto) 13, Monocytes (%) (Auto) 10, Eosinophils (%) (Auto) 0, Basophils (%) (Auto) 1, Neutrophils # (Auto) 5.4, Lymphocytes # (Auto) 0.9L, Monocytes # (Auto) 0.7, Eosinophils # (Auto) 0.0, Basophils # (Auto) 0.1, Immature Granulocyte # (Auto) 0.2H, Sodium Level 136, Potassium Level 4.1, Chloride Level 103, Carbon Dioxide Level 21, Anion Gap 12, Blood Urea Nitrogen 15, Creatinine 0.87, Estimat Glomerular Filtration Rate 92, BUN/Creatinine Ratio 17, Glucose Level 91, Calcium Level 8.6, Corrected Calcium 9.6, Phosphorus Level 3.7, Magnesium Level 1.8, Total Bilirubin 0.7, Aspartate Amino Transf (AST/SGOT) 61H, Alanine Aminotransferase (ALT/SGPT) 45, Alkaline Phosphatase 94, Total Protein 6.0L, Albumin 2.8L 01/07/23 06:45: Blood Gas Puncture Site R RADIAL, Blood Gas Patient Temperature 37.0, Arterial Blood pH 7.39, Arterial Blood Partial Pressure CO2 45, Arterial Blood Partial Pressure O2 83, Arterial Blood HCO3 27, Arterial Blood Total CO2 28.0, Arterial Blood Oxygen Saturation 98, Arterial Blood Base Excess 2.1, Ta Test POSITIVE, Blood Gas Ventilator Setting YES, Blood Gas Inspired Oxygen Microbiology 01/04/23 Blood Culture - Preliminary, Resulted No growth 01/04/23 Urine Culture - Final, Complete NO GROWTH 01/03/23 MRSA Screen - Final, Complete MRSA not isolated Laboratory Tests 01/06/23 04:08 01/07/23 03:52 A/P: Assessment: Pneumonia with sepsis and pleurisy - worsening breathing on 01/07/23 Type 2 AL secondary to sepsis/hypoxia - Echo on 01/04/23: LVEF 50-55%, PASP 25-30 mmHg UTI - management per medical services Hypotension - likely secondary to sepsis - improved Tachycardia - likely d/t sepsis/pneumonia - improving SANDY - likely secondary to hypotension/sepsis - continues to improve ? microscopic hematuria - management per medical services Reports h/o heavy ETOH usage in the past - reports occ usage Hypo-magnesium - resolved Mild thrombocytopenia - undetermined etiology - now resolved Plan: * Continue ASA and beta-ayaan * Monitor labs closely * MPI for cor risk stratification, given cor risk factors had been planned for today, however d/t increasing oxygen demand requiring Bi-pap we will wait until his resp status is more stable. JOAN ALEJANDRO MD FACP FAC CCDS Jan 07, 2023 09:42
[2023-01-07] MEDS ORDERED: guaiFENesin/DM (ROBITUSSIN DM) 10 ML UDC PO PRN (09:45)
--- NOTE | 2023-01-07 11:04 | Tele-ICU Progress Note ---
Subjective Date Seen by a Provider: Jan 07, 2023 Time Seen by a Provider: 09:37 Subjective/Events-last exam (Tele-ICU Physician , Progress Note ) Service provided via interactive audio and video telecommunications E-CARE system to a patient admitted to ICU bed in [facility]. Patient is seen today due to persistent need of ICU care Available chart/ vitals / labs / Images reviewed Video assessment done using teleICU camera, rest of exam as per RN Discussed with RN Events overnight : Afebrile hemodynamically stable Respiratory - VT I/O NEG Drips: Pressors- no Hospital course: 01/03: 72 y/o male presented to the ED with chest pain and hypoxia. Admitted with NSTEMI, SANDY, 01/05- VT40L 100% 01/06 - VT 28L 60 % , 01/07 - BIPAP night , VT 60% 30 L A/P Acute resp failure - VT 30L 60 % - IMPROVED - bipap at [facility] with WOB tachypnea ( tolerates well SANDY -normalized - off IVF - normal po intake PNA LEFT (neg flu and covid)- better on cxr 01/07 - sputum 01/05 - STREPTOCOCCUS PNEMONIAE - ceftriaxon , zmax - pum toilet CP - as per cards - ECHO 01/04 - EF 55% , RVSP 30 ELVE D dimer - VQ - low prob Anemia - delutional Anxiety - xanax prn Thrombocytopenia - stable , but NEW this admission - IMPROVING Lines : periph , (Central Line Necessity Reviewed) Clark: void OG: Nutrition: po Analgesia: Anxiety/ delirium VTE Prophylaxis: татьяна Stress Ulcer Prophylaxis: na Plans in collaboration with bedside consultants and IM MDs. Discussed with RN to reach out if any questions or concerns A total of 20 minutes of critical care time was devoted to this patient today, required to treat and/or prevent further deterioration of critical care condition ( as above ) . I am remotely monitoring this patient from another [place]. I am unable to do the bedside exam, and history/physical and pertinent information is taken from other notes in the computer and bedside staff. Sepsis Event Evaluation Height, Weight, BMI Height: 5'6.00" Weight: 172lbs. 7.0oz. 78.538436bo; 29.82 BMI Method:Stated Focused Exam Lactate Level 01/04/23 13:55: Lactic Acid Level 1.42 Exam Exam Patient acknowledged, consented, and participated in this virtual visit which was conducted using real time audio/video Vital Signs Date Time Temp Pulse Resp B/P (MAP) Pulse Ox O2 Delivery O2 Flow Rate FiO2 01/07/23 10:16 90 Vapotherm 25.00 60 01/07/23 08:00 36.4 94 16 119/67 (84) 95 01/07/23 08:00 94 NIV Bilevel 45 01/07/23 07:00 98 01/07/23 06:26 98 30 94 45.00 01/07/23 06:00 101 112/68 (83) 94 NIV Bilevel 45.00 01/07/23 05:00 101 121/74 (90) 95 NIV Bilevel 45.00 01/07/23 04:03 104 107/76 (86) 94 NIV Bilevel 45.00 01/07/23 04:00 94 NIV Bilevel 45 01/07/23 03:00 102 124/70 (88) 93 Vapotherm 20.00 50.00 01/07/23 02:31 96 Vapotherm 20.00 50 01/07/23 02:00 98 130/88 (102) 93 Vapotherm 20.00 50.00 01/07/23 01:00 100 01/07/23 00:48 36.6 01/07/23 00:00 93 142/94 (110) 95 NIV Bilevel 45.00 01/06/23 23:59 93 Vapotherm 30.00 50 01/06/23 22:00 NIV Bilevel 45.00 01/06/23 21:44 102 28 96 45.00 01/06/23 20:00 93 Vapotherm 30.00 50 01/06/23 19:56 37.1 101 42 111/79 (90) 97 Vapotherm 20.00 60.00 01/06/23 19:00 101 01/06/23 18:43 96 Vapotherm 20.00 50 01/06/23 18:00 112 40 128/91 (103) 97 Vapotherm 20.00 60.00 01/06/23 17:00 102 15 120/74 (89) 93 Vapotherm 20.00 60.00 01/06/23 16:00 94 Vapotherm 20.00 50 01/06/23 15:45 37.1 01/06/23 15:00 98 13 139/102 (114) 95 Vapotherm 20.00 60.00 01/06/23 14:25 97 Vapotherm 28.00 55 01/06/23 14:00 98 13 121/102 (108) 100 Vapotherm 20.00 60.00 01/06/23 13:07 96 01/06/23 13:00 95 13 124/95 (105) 99 Vapotherm 20.00 60.00 01/06/23 12:00 94 Vapotherm 20.00 60 01/06/23 12:00 93 13 124/61 (82) 100 Vapotherm 20.00 60.00 01/06/23 11:40 36.4 I & O 01/07/23 07:00 Intake Total 2000 ml Output Total 2475 ml Balance -475 ml Height & Weight Height: 5'6.00" Weight: 172lbs. 7.0oz. 78.536767si; 29.82 BMI Method:Stated General Appearance: No Apparent Distress, WD/WN HEENT: PERRL/EOMI, TMs Normal, Normal ENT Inspection, Pharynx Normal Neck: Full Range of Motion, Normal Inspection, Non Tender, Supple Respiratory: Chest Non Tender, Wheezing, Other (Slightly disminished bilateral) Cardiovascular: No Edema, No Gallop, No JVD, Tachycardia Capillary Refill: Less Than 3 Seconds Peripheral Pulses: 2+ Dorsalis Pedis (R), 2+ Left Dors-Pedis (L) Gastrointestinal: normal bowel sounds, non tender, distended Extremity: Normal Capillary Refill, Normal Inspection, Normal Range of Motion, Non Tender Neurologic/Psychiatric: Alert, Oriented x3, No Motor/Sensory Deficits, Normal 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
--- NOTE | 2023-01-07 14:18 | Progress Note - Hospitalist ---
YUNI NEWMAN 01/07/23 1418: Subjective HPI/CC On Admission Date Seen by Provider: Jan 07, 2023 Time Seen by Provider: 09:30 Mr. Linares says he is doing well today. He says he has no cp and does not have sob. He endorses cough and says it is worse when he takes a deep breath. He believes that part of his chest pain on presentation was due to a fall out of the bath tub a day prior, chest pain is reproducible with palpation on exam. Encourage taking deep breaths to use full lungs even though he complains of cough when he does this. Weaning off o2 today. Had BM yesterday as well. Review of Systems General: No Chills HEENT: No Head Aches Pulmonary: No Dyspnea; Cough Cardiovascular: Chest Pain; No: Palpitations Gastrointestinal: No: Nausea, Vomiting, Abdominal Pain Objective Exam Vital Signs Vital Signs Date Time Temp Pulse Resp B/P (MAP) Pulse Ox O2 Delivery O2 Flow Rate FiO2 01/07/23 14:06 97 Vapotherm 25.00 60 01/07/23 13:00 89 01/07/23 12:00 36.8 16 109/98 (102) Capillary Refill : Less Than 3 Seconds General Appearance: No Apparent Distress HEENT: PERRL/EOMI, Moist Mucous Membranes Neck: Non Tender, Supple; No JVD, No Lymphadenopathy (L), No Lymphadenopathy (R) Respiratory: No Accessory Muscle Use, No Respiratory Distress, Rhonci Cardiovascular: Regular Rate, Rhythm, No Edema, No Gallop, No JVD, No Murmur, Normal Peripheral Pulses Gastrointestinal: Normal Bowel Sounds, Non Tender, Soft Extremity: Normal Capillary Refill, Normal Inspection, Normal Range of Motion, Non Tender, No Pedal Edema Neurologic/Psychiatric: Alert, Oriented x3, No Motor/Sensory Deficits, Normal Mood/Affect Skin: Normal Color, Warm/Dry Results/Procedures Lab Laboratory Tests 01/07/23 03:52 Patient resulted labs reviewed. Assessment/Plan Assessment and Plan Assess & Plan/Chief Complaint Pneumonia AHRF -cxr reviewed -satting 95% on HHFO2 -weaning off o2 today -encouraged full lung use -wbc count trending down -on azithro and rocephin Chest Pain NSTEMI -mild trop elevation on presentation -ekg negative -cardiology on board SANDY -1.32 on admit, .87 now - resolved Microscopic hematuria -w/o urinary catheter -denies hx of smoking -will need outpatient uro f/u dispo: transferred out of icu today to cardiac step down. continue antibiotics, encourage breathing and wean off o2. Clinical Quality Measures DVT/VTE Risk/Contraindication: Contraindications-Mechi: Other *list below* Other: poss dvt AUDREY SOLORZANO DO 01/08/23 0500: Supervisory-Addendum Brief Verification & Attestation Participated in pt care: history, MDM, physical Personally performed: exam, history, MDM, supervision of care Care discussed with: Medical Student Procedures: n/a Results interpretation: Verified all documentation Verification and Attestation of Medical Student E/M Service A medical student performed and documented this service in my presence. I reviewed and verified all information documented by the medical student and made modifications to such information, when appropriate. I personally performed the physical exam and medical decision making. Audrey Solorzano Jan 08, 2023,04:59 YUNI NEWMAN Jan 07, 2023 14:18 AUDREY SOLORZANO DO Jan 08, 2023 05:00
[2023-01-07] MEDS: AZITHROMYCIN 250 MG TAB (ZITHROMAX) PO SCH (20:27)
[2023-01-07] MEDS: AMITRIPTYLINE 150 MG (ELAVIL) TABLET PO SCH (20:28)
[2023-01-07] MEDS: cefTRIAXone 1 GM PRE-MIX 50 ML IV SCH (20:28)
[2023-01-08] VITALS: BP 138/78
[2023-01-08 02:29] VITALS: BP 138/78
[2023-01-08] MEDS: RT-ALBUTEROL SULF 2.5 MG/3 ML PRE-MIX VIAL INH SCH ×4 (02:29→21:47)
[2023-01-08 04:22] LABS: BASOPHILS % (AUTO) 1 % (0-10); EOSINOPHILS % (AUTO) 0 % (0-10); HEMATOCRIT 34 % (40-54); HEMOGLOBIN 11.4 g/dL (13.3-17.7); LYMPHOCYTES # (AUTO) 0.9 10^3/uL (1.0-4.0); LYMPHOCYTES % (AUTO) 16 % (12-44); MEAN CORPUSCULAR HEMOGLOBIN 31 pg (25-34); MEAN CORPUSCULAR HGB CONC 33 g/dL (32-36); MEAN CORPUSCULAR VOLUME 92 fL (80-99); MEAN PLATELET VOLUME 10.7 fL (9.0-12.2); MONOCYTES # (AUTO) 0.7 10^3/uL (0.0-1.0); MONOCYTES % (AUTO) 12 % (0-12); NEUTROPHILS # (AUTO) 3.7 10^3/uL (1.8-7.8); NEUTROPHILS % (AUTO) 66 % (42-75); PLATELET COUNT 159 10^3/uL (130-400); WHITE BLOOD COUNT 5.6 10^3/uL (4.3-11.0)
[2023-01-08 04:40] LABS: ALBUMIN 2.7 GM/DL (3.2-4.5); BILIRUBIN,TOTAL 0.6 MG/DL (0.1-1.0); CALCIUM 9.6 MG/DL (8.5-10.1); CREATININE SERUM 0.91 MG/DL (0.60-1.30); MAGNESIUM 1.8 MG/DL (1.6-2.4); PHOSPHORUS 3.8 MG/DL (2.3-4.7); TOTAL PROTEIN 6.2 GM/DL (6.4-8.2)
--- NOTE | 2023-01-08 06:17 | Diagnostic Imaging Report ---
INDICATION: Pneumonia. Comparison is made with prior examination of 01/07/23. FINDINGS: There is cardiomegaly. There are bilateral perihilar infiltrates. There is left pleural effusion. There is no pneumothorax. The mediastinum is unremarkable. IMPRESSION: Cardiomegaly and bilateral perihilar infiltrates, left greater than right, suspect for pneumonia. There is also some left pleural effusion. Some underlying central pulmonary venous congestion cannot be excluded. Dictated by: Dictated on workstation # [id number]
[2023-01-08] MEDS: POTASSIUM CL 10MEQ/50ML IVPB 50 ML IV SCH (07:47)
[2023-01-08] MEDS: KCL 20 MEQ TAB (K-DUR) PO SCH (07:48)
--- NOTE | 2023-01-08 08:48 | Progress Note - Cardiology ---
Cardiology SOAP Progress Note Subjective: No cp or palp or syncope Shortness of breath and gen weakness and malaise present No n/v/d No focal weakness Objective: I&O/Vital Signs 01/07/23 01/07/23 01/07/23 01/08/23 21:41 23:48 23:59 00:00 Temp 36.6 Pulse 92 Resp 30 Pulse Ox 95 94 92 O2 Delivery Vapotherm NIV Bilevel O2 Flow Rate 25.00 30.00 45.00 FiO2 60 60 01/08/23 01/08/23 01/08/23 01/08/23 01:00 02:29 03:33 04:00 Temp 36.4 Pulse 90 80 Resp 29 Pulse Ox 94 94 O2 Delivery NIV Bilevel O2 Flow Rate 45.00 30.00 FiO2 60 01/08/23 01/08/23 01/08/23 07:00 08:00 08:05 Temp 36.3 Pulse 94 98 Resp 20 B/P (MAP) 125/54 (77) Pulse Ox 97 94 O2 Delivery NIV Bilevel Vapotherm O2 Flow Rate 25.00 FiO2 65 01/08/23 00:00 Intake Total 800 ml Output Total 1300 ml Balance -500 ml Weight (Pounds): 172 Weight (Ounces): 7.0 Weight (Calculated Kilograms): 78.559191 Constitutional: AAO x 3, well-developed, well-nourished Respiratory: chest expansion is symmetric, chest is bilaterally symmetric, rhonchi (scattered), other (diminished throughout with coarse breath sounds) Cardiovascular: No JVD; tachycardia, S1 and S2 Gastrointestional: No tender; soft, round, audible bowel sounds Extremities: no lower extremity edema bilateral Neurologic/Psychiatric: oriented x 3, other (moves all limbs equally) Skin: No rash on exposed areas, No ulcerations on exposed areas Results/Procedures: Labs Laboratory Tests 01/08/23 03:56: White Blood Count 5.6, Red Blood Count 3.71L, Hemoglobin 11.4L, Hematocrit 34L, Mean Corpuscular Volume 92, Mean Corpuscular Hemoglobin 31, Mean Corpuscular Hemoglobin Concent 33, Red Cell Distribution Width 13.2, Platelet Count 159, Mean Platelet Volume 10.7, Immature Granulocyte % (Auto) 5, Neutrophils (%) (Auto) 66, Lymphocytes (%) (Auto) 16, Monocytes (%) (Auto) 12, Eosinophils (%) (Auto) 0, Basophils (%) (Auto) 1, Neutrophils # (Auto) 3.7, Lymphocytes # (Auto) 0.9L, Monocytes # (Auto) 0.7, Eosinophils # (Auto) 0.0, Basophils # (Auto) 0.0, Immature Granulocyte # (Auto) 0.3H, Sodium Level 138, Potassium Level 4.0, Chloride Level 104, Carbon Dioxide Level 24, Anion Gap 10, Blood Urea Nitrogen 15, Creatinine 0.91, Estimat Glomerular Filtration Rate 90, BUN/Creatinine Ratio 16, Glucose Level 92, Calcium Level 9.6, Corrected Calcium 10.6H, Phosphorus Level 3.8, Magnesium Level 1.8, Total Bilirubin 0.6, Aspartate Amino Transf (AST/SGOT) 102H, Alanine Aminotransferase (ALT/SGPT) 86H, Alkaline Phosphatase 88, Total Protein 6.2L, Albumin 2.7L Microbiology 01/04/23 Blood Culture - Preliminary, Resulted No growth 01/04/23 Urine Culture - Final, Complete NO GROWTH 01/03/23 MRSA Screen - Final, Complete MRSA not isolated Laboratory Tests 01/07/23 03:52 01/08/23 03:56 A/P: Assessment: Pneumonia with sepsis and pleurisy - worsening breathing on 01/07/23, improved on 01/08/23 Type 2 CO secondary to sepsis/hypoxia - Echo on 01/04/23: LVEF 50-55%, PASP 25-30 mmHg UTI - management per medical services Hypotension - likely secondary to sepsis - improved Tachycardia - likely d/t sepsis/pneumonia - improving SANDY - likely secondary to hypotension/sepsis - continues to improve ? microscopic hematuria - management per medical services Reports h/o heavy ETOH usage in the past - reports occ usage Hypo-magnesium - resolved Mild thrombocytopenia - undetermined etiology - now resolved Plan: * Continue ASA and beta-ayaan * Monitor labs closely * MPI for cor risk stratification is advised, given his cor risk factors. This can be accomplished as an outpatient JO[facility] ALEJANDRO [facility] Jan 08, 2023 08:48
[2023-01-08] MEDS: SENNOSIDES 8.6 MG (SENOKOT) TAB PO SCH ×2 (09:00→20:06)
[2023-01-08] MEDS: guaiFENesin (MUCINEX) 600 MG TAB PO SCH ×2 (09:00→20:07)
[2023-01-08] MEDS: ASPIRIN E.C. 81 MG (ECOTRIN) TAB PO SCH (09:01)
[2023-01-08] MEDS: meTOprolol TARTRATE 25 MG (LOPRESSOR) TABLET PO SCH ×2 (09:01→20:07)
[2023-01-08] MEDS: DOCUSATE SODIUM 100 MG (COLACE) CAP PO SCH ×2 (09:01→20:06)
[2023-01-08] MEDS: MAGNESIUM 1 GM/100 ML IVPB 100 ML IV SCH ×3 (09:01→09:49)
[2023-01-08] MEDS: ENOXAPARIN 40 MG/0.4 ML (LOVENOX) SYR SC SCH (09:02)
[2023-01-08] MEDS ORDERED: ALPRAZolam 1 MG (XANAX) TAB PO PRN (11:30)
--- NOTE | 2023-01-08 12:59 | Progress Note ---
TRENTYUNI 01/08/23 1259: Subjective Date Seen by a Provider: Jan 08, 2023 Time Seen by a Provider: 10:00 Subjective/Events-last exam Mr. Linares reports he is feeling better today. He is able to take deeper breaths and has been able to cough a lot of mucus up. He asks for a half a xanax to help with anxiety and breathing as he says it has helped in the past. He denies cp, palpitations, fever/chills. Review of Systems General: No Chills Pulmonary: Dyspnea, Cough Cardiovascular: No: Chest Pain, Palpitations Gastrointestinal: No: Abdominal Pain Objective Exam Last Set of Vital Signs Vital Signs Date Time Temp Pulse Resp B/P (MAP) Pulse Ox O2 Delivery O2 Flow Rate FiO2 01/08/23 12:44 86 01/08/23 10:28 94 Vapotherm 25.00 65 01/08/23 08:00 36.3 20 125/54 (77) Capillary Refill : Less Than 3 Seconds I&O Intake and Output 01/08/23 00:00 Intake Total 1340 ml Output Total 3215 ml Balance -1875 ml Intake Oral 1290 ml IV Total 50 ml Output Urine Total 3215 ml # Voids 1 General: Alert, Oriented X3, Cooperative, No Acute Distress HEENT: Atraumatic, PERRLA, EOMI, Mucous Memb Moist/[place] Neck: Supple, No JVD Lungs: Other (Rales in mid left lung field. CTA on right side. Equal chest expansion. Deep breaths cause him to cough.) Heart: Regular Rate, Normal S1, Normal S2, No Murmurs Abdomen: Soft, No Tenderness Extremities: No Clubbing, No Cyanosis, No Edema, Normal Pulses Skin: No Rashes, No Significant Lesion Neuro: Normal Speech, Normal Tone, Sensation Intact Psych/Mental Status: Mental Status NL Results Lab Laboratory Tests 01/08/23 03:56: White Blood Count 5.6, Red Blood Count 3.71L, Hemoglobin 11.4L, Hematocrit 34L, Mean Corpuscular Volume 92, Mean Corpuscular Hemoglobin 31, Mean Corpuscular Hemoglobin Concent 33, Red Cell Distribution Width 13.2, Platelet Count 159, Mean Platelet Volume 10.7, Immature Granulocyte % (Auto) 5, Neutrophils (%) (Auto) 66, Lymphocytes (%) (Auto) 16, Monocytes (%) (Auto) 12, Eosinophils (%) (Auto) 0, Basophils (%) (Auto) 1, Neutrophils # (Auto) 3.7, Lymphocytes # (Auto) 0.9L, Monocytes # (Auto) 0.7, Eosinophils # (Auto) 0.0, Basophils # (Auto) 0.0, Immature Granulocyte # (Auto) 0.3H, Sodium Level 138, Potassium Level 4.0, Chloride Level 104, Carbon Dioxide Level 24, Anion Gap 10, Blood Urea Nitrogen 15, Creatinine 0.91, Estimat Glomerular Filtration Rate 90, BUN/Creatinine Ratio 16, Glucose Level 92, Calcium Level 9.6, Corrected Calcium 10.6H, Phosphorus Level 3.8, Magnesium Level 1.8, Total Bilirubin 0.6, Aspartate Amino Transf (AST/SGOT) 102H, Alanine Aminotransferase (ALT/SGPT) 86H, Alkaline Phosphatase 8 8, Total Protein 6.2L, Albumin 2.7L Microbiology 01/04/23 Blood Culture - Preliminary, Resulted No growth 01/04/23 Urine Culture - Final, Complete NO GROWTH 01/03/23 MRSA Screen - Final, Complete MRSA not isolated Assessment/Plan Assessment/Plan Assess & Plan/Chief Complaint Pneumonia AHRF -cxr reviewed -satting 95% on HHFO2 -encouraged full lung use -wbc count trending down -on azithro and rocephin -still trying to wean off O2, still requiring HHF -Lungs with significan crackling on Left side -Endorses a lot of mucus clearing with dark yellow mucus in bedside cup -improving, monitor Chest Pain NSTEMI -mild trop elevation on presentation -ekg negative -cardiology on board SANDY -1.32 on admit, .87 now - resolved Microscopic hematuria -w/o urinary catheter -denies hx of smoking -will need outpatient uro f/u Anxiety -Xanax 1/ tab prn dispo: transferring out of step down unit to floor. Continue to wean off O2. Clinical Quality Measures DVT/VTE Risk/Contraindication: Contraindications-Mechi: Other *list below* Other: poss dvt AUDREY SOLORZANO DO 01/09/23 0539: Supervisory-Addendum Brief Verification & Attestation Participated in pt care: history, MDM, physical Personally performed: exam, history, MDM, supervision of care Care discussed with: Medical Student Procedures: n/a Results interpretation: Verified all documentation Verification and Attestation of Medical Student E/M Service A medical student performed and documented this service in my presence. I reviewed and verified all information documented by the medical student and made modifications to such information, when appropriate. I personally performed the physical exam and medical decision making. Audrey Solorzano, Jan 09, 2023,05:39 YUNI NEWMAN Jan 08, 2023 12:59 AUDREY SOLORZANO DO Jan 09, 2023 05:39
[2023-01-08] MEDS: methylPREDNISolone 40 MG/ML (Solu-MEDROL) VIAL IV SCH ×2 (13:11→17:52)
--- NOTE | 2023-01-08 13:40 | Occupational Therapy Eval ---
OT Evaluation-General/PLF Medical Diagnosis Admission Date Jan 03, 2023 at 22:17 Medical Diagnosis: Pneumonia w/ Sepsis Suspect possible NSTEMI vs cardiac strain Onset Date: Jan 03, 2023 Therapy Diagnosis Therapy Diagnosis: weakness,SOA Height/Weight Height (Feet): 5 Height (Inches): 6.00 Weight (Pounds): 172 Weight (Ounces): 7.0 Precautions Precautions/Isolations: Fall Prevention, Standard Precautions Weight Bear Status Weight Bearing Restriction: Weight Bearing/Tolerated Referral Referral Reason: Evaluation/Treatment Medical History Pertinent Medical History: Alcoholism, Dementia Additional Medical History Head injury, anxiety, mood disorders Current History Patient reports he wash bathing at a friends home, fell getting out of the tub. Pain to hips and became SOA, friend called EMS Reviewed History: Yes Social History Patient reports he is currently homeless, Sleeps in a friend's camper at the [facility], showers at the [facility]. Walks or gets rides from friends. enjoys spending his time following the [employer] ADL-Prior Level of Function SCALE: Activities may be completed with or without assistive devices. 1-Obkfdlovnz-ugybdqn completes the activity by him/herself with no assistance from a helper. 5-Set-up or Clean-up Assistance-helper sets up or cleans up; patient completes activity. [place] assists only prior to or following the activity. 4-Supervision or Touching Assistance-helper provides verbal cues and/or touching/steadying and/or contact guard assistance as patient completes activity. Assistance may be provided throughout the activity or intermittently. 3-Partial/Moderate Assistance-helper does LESS THAN HALF the effort. [place] lifts, holds or supports trunk or limbs, but provides less than half the effort. 2-Substantial/Maximal Assistance-helper does MORE THAN HALF the effort. [place] lifts or holds trunk or limbs and provides more than half the effort. 6-Ruboelhry-dknrhk does ALL the effort. Patient does none of the effort to complete the activity. Or, the assistance of 2 or more helpers is required for the patient to complete the activity. If activity was not attempted, code reason: 7-Patient Refused. 9-Not Applicable-not attempted and the patient did not perform the activity before the current illness, exacerbation or injury. 10-Not Attempted due to Environmental Limitations-(lack of equipment, weather restraints, etc.). 88-Not Attempted due to Medical Conditions or Safety Concerns. Self Care: Independent Functional Cognition: Needed Some Help Drive Self: No OT Current Status Subjective Reclined in bed eating lunch. Agreeable to OT Mental Status/Objective Attachments: Oxygen (vapotherm 65/25 96%) Current Glasses/Contacts: Yes Upper Extremity ROM BUE ROM /Stregnth GMC/FMC WNLs ADL-Treatment Eating (QC): 6 Oral Hygiene (QC): 5 Shower/Bathe Self (QC): 88 Upper Body Dressing (QC): 4 Lower Body Dressing (QC): 3 On/Off Footwear (QC): 5 Toileting Hygiene (QC): 4 OT Chief Radiation Therapist Goals Chief Radiation Therapist Goals 1=Demonstrate adherence to instructed precautions during ADL tasks. 2=Patient will verbalize/demonstrate understanding of assistive devices/modifications for ADL. 3=Patient will improve strength/tolerance for activity to enable patient to perform ADL's. OT Education/Plan Treatment Plan/Plan of Care Patient would benefit from OT for education, treatment and training to promote independence in ADL's, mobility, safety and/or upper extremity function for ADL's. ETHAN DEVRIES OT Jan 08, 2023 13:40
--- NOTE | 2023-01-08 15:26 | Physical Therapy Evaluation ---
PT Evaluation-General Medical Diagnosis Admission Date Jan 03, 2023 at 22:17 Medical Diagnosis: Pneumonia w/ Sepsis Suspect possible NSTEMI vs cardiac strain Onset Date: Jan 03, 2023 Therapy Diagnosis Therapy Diagnosis: Gait Deficit, Strength Deficit Height/Weight Height (Feet): 5 Height (Inches): 6.00 Weight (Pounds): 172 Weight (Ounces): 7.0 Precautions Precautions/Isolations: Fall Prevention, Standard Precautions Weight Bear Status Right Lower Extremity: Right Full Weight Bearing Left Lower Extremity: Left Full Weight Bearing Referral Physician: Dr. Cruz Reason for Referral: Evaluation/Treatment Medical History Pertinent Medical History: Alcoholism, Dementia Reviewed History: Yes Social History Home: Single Level Current Living Status: [place] Entry Into Home: Stairs With Railing PT Steps Into Home: 4 Prior Prior Level of Function SCALE: Activities may be completed with or without assistive devices. 2-Qpxdqsqunc-bfhmisk completes the activity by him/herself with no assistance from a helper. 5-Set-up or Clean-up Assistance-helper sets up or cleans up; patient completes activity. [place] assists only prior to or following the activity. 4-Supervision or Touching Assistance-helper provides verbal cues and/or touching/steadying and/or contact guard assistance as patient completes activity. Assistance may be provided throughout the activity or intermittently. 3-Partial/Moderate Assistance-helper does LESS THAN HALF the effort. [place] lifts, holds or supports trunk or limbs, but provides less than half the effort. 2-Substantial/Maximal Assistance-helper does MORE THAN HALF the effort. [place] lifts or holds trunk or limbs and provides more than half the effort. 5-Rnrzapoyc-phxtmp does ALL the effort. Patient does none of the effort to complete the activity. Or, the assistance of 2 or more helpers is required for the patient to complete the activity. If activity was not attempted, code reason: 7-Patient Refused. 9-Not Applicable-not attempted and the patient did not perform the activity before the current illness, exacerbation or injury. 10-Not Attempted due to Environmental Limitations-(lack of equipment, weather restraints, etc.). 88-Not Attempted due to Medical Conditions or Safety Concerns. Bed Mobility: 6 Transfers (B,C,W/C): 6 Gait: 6 Stairs: 6 Indoor Mobility (Ambulation): Independent Stairs: Independent PT Evaluation-Current Subjective Patient lying supine in bed upon PT arrival, agreeable to treatment. Reports 0/10 pain currently. Objective Patient Orientation: Person, Place, Time, Situation Attachments: Oxygen, IV Patient on Vapotherm, 65% O2, 25 LPM ROM/Strength ROM Lower Extremities WFLs bialterally all planes. Strength Lower Extremities 4/5 strength bilaterally all planes Sensory Vision: Functional Hearing: Functional Sensation Right Lower Extremit: Intact Sensation Left Lower Extremity: Intact Transfers Roll Left to Right (QC): 4 Sit to Lying (QC): 4 Lying to Sitting/Side of Bed(Q: 4 Sit to Stand (QC): 4 Gait Does the Patient Walk?: Yes Mode of Locomotion: Walk Anticipated Mode of Locomotion: Walk Walk 10 feet (QC): 4 Walk 50 ft with 2 Turns(QC): 4 Walk 150 ft (QC): 4 Distance: 250 feet Gait Assistive Device: FWW Balance Sitting Static: Fair Sitting Dynamic: Fair Standing Static: Fair Standing Dynamic: Fair Assessment/Needs Patient moderately impulsive and requires commands to be repeated numerous times. He attempts to stand numerous times despite being instructed to staying in bed so that all of the attachments can be moved for safe mobility. Patient performs all bed mobility and transfers with SBA due impulsive tendencies. Patient ambulates 250 feet with FWW, with CGA and verbal cues for safety, progression, posture and balance. Patient in chair, moved to room 413 post PT treatment with nurse and respiratory therapy in the room. All needs met and call light in hand. Rehab Potential: Good PT Chcf Goals Highway Engineering Technician Goals PT Highway Engineering Technician Goals Time Frame: Feb 05, 2023 Roll Left & Right (QC): 6 Sit to Lying (QC): 6 Lying-Sitting on Side/Bed(QC): 6 Sit to Stand (QC): 6 Chair/Fxb-jh-Wqsed Xfer(QC): 6 Does the Patient Walk: Yes Walk 10 feet (QC): 6 Walk 50ft with 2 Turns (QC): 6 Walk 150 ft (QC): 6 1 Step (curb) (QC): 6 4 Steps (QC): 6 12 Steps (QC): 6 PT Plan Problem List Problem List: Activity Tolerance, Functional Strength, Safety, Balance, Gait, Transfer, Bed Mobility, ROM Treatment/Plan Treatment Plan: Continue Plan of Care Treatment Plan: Bed Mobility, Education, Functional Activity Atif, Functional Strength, Group Therapy, Gait, Safety, Therapeutic Exercise, Transfers Treatment Duration: Feb 05, 2023 Frequency: 6 times per week Estimated Hrs Per Day: .25 hour per day Patient and/or Family Agrees t: Yes Safety Risks/Education Patient Education: Gait Training, Transfer Techniques Teaching Recipient: Patient Teaching Methods: Demonstration, Discussion Response to Teaching: Verbalize Understanding, Return Demonstration Time Time In: 1437 Time Out: 1457 DATE: Jan 08, 2023 Total Billed Treatment Time: 20 Total Billed Treatment Visit, KILO MCCLAIN PT Jan 08, 2023 15:26
[2023-01-08 16:41] VITALS: BP 112/61
--- NOTE | 2023-01-08 16:54 | Occupational Therapy Eval ---
OT Evaluation-General/PLF Medical Diagnosis Admission Date Jan 03, 2023 at 22:17 Medical Diagnosis: Pneumonia w/ Sepsis Suspect possible NSTEMI vs cardiac strain Onset Date: Jan 03, 2023 Therapy Diagnosis Therapy Diagnosis: weakness Height/Weight Height (Feet): 5 Height (Inches): 6.00 Weight (Pounds): 172 Weight (Ounces): 7.0 Precautions Precautions/Isolations: Fall Prevention, Standard Precautions Weight Bear Status Weight Bearing Restriction: Weight Bearing/Tolerated Referral Physician: Dr. Cruz Referral Reason: Evaluation/Treatment Medical History Pertinent Medical History: Alcoholism, Dementia Social History Home: Single Level Current Living Status: [facility] Entry Into Home: Stairs With Railing Steps Into Home: 4 ADL-Prior Level of Function SCALE: Activities may be completed with or without assistive devices. 9-Ulotrgtdsq-rrolyem completes the activity by him/herself with no assistance from a helper. 5-Set-up or Clean-up Assistance-helper sets up or cleans up; patient completes activity. [place] assists only prior to or following the activity. 4-Supervision or Touching Assistance-helper provides verbal cues and/or touchin g/steadying and/or contact guard assistance as patient completes activity. Assistance may be provided throughout the activity or intermittently. 3-Partial/Moderate Assistance-helper does LESS THAN HALF the effort. [place] lifts, holds or supports trunk or limbs, but provides less than half the effort. 2-Substantial/Maximal Assistance-helper does MORE THAN HALF the effort. [place] lifts or holds trunk or limbs and provides more than half the effort. 4-Rjvbrrobe-rzitkn does ALL the effort. Patient does none of the effort to complete the activity. Or, the assistance of 2 or more helpers is required for the patient to complete the activity. If activity was not attempted, code reason: 7-Patient Refused. 9-Not Applicable-not attempted and the patient did not perform the activity before the current illness, exacerbation or injury. 10-Not Attempted due to Environmental Limitations-(lack of equipment, weather restraints, etc.). 88-Not Attempted due to Medical Conditions or Safety Concerns. Self Care: Independent Functional Cognition: Needed Some Help OT Current Status Subjective Agreeable to OT Mental Status/Objective Patient Orientation: Person, Place, Situation Attachments: IV, Telemetry Current Glasses/Contacts: Yes Upper Extremity ROM BUE WFL Upper Extremity Strength BUE WFLS ADL-Treatment Eating (QC): 6 Oral Hygiene (QC): 6 Shower/Bathe Self (QC): 7 Upper Body Dressing (QC): 4 Lower Body Dressing (QC): 4 On/Off Footwear (QC): 5 Toileting Hygiene (QC): 4 Education OT Patient Education: Correct positioning, Energy conservation, Modified ADL techniques, Progress toward Goal/Update tx plan, Purpose of tx/functional activities, Reviewed precautions, Rehab process, Safety issues, Transfer techniques Teaching Recipient: Patient Teaching Methods: Demonstration, Discussion Response to Teaching: Reinforcement Needed OT Alf Goals Alf Goals Eating (QC): 6 Oral Hygiene (QC): 6 Toileting Hygiene (QC): 6 Shower/Bathe Self (QC): 6 Upper Body Dressing (QC): 6 Lower Body Dressing (QC): 6 On/Off Footwear (QC): 6 1=Demonstrate adherence to instructed precautions during ADL tasks. 2=Patient will verbalize/demonstrate understanding of assistive devices/modifications for ADL. 3=Patient will improve strength/tolerance for activity to enable patient to per form ADL's. OT Education/Plan Problem List/Assessment Assessment: Decreased Activ Tolerance, Decreased Safety Aware, Impaired Coordination, Impaired Funct Balance, Impaired Self-Care Skills Discharge Recommendations Plan/Recommendations: Continue POC Treatment Plan/Plan of Care Treatment,Training & Education: Yes Patient would benefit from OT for education, treatment and training to promote independence in ADL's, mobility, safety and/or upper extremity function for ADL's. Plan of Care: ADL Retraining, Functional Mobility, UE Funct Exercise/Act Treatment Duration: Jan 16, 2023 Frequency: 3 times per week (3-5 times per week) Rehab Potential: Good Time Start Time: 13:27 Stop Time: 13:50 DATE: Jan 08, 2023 Total Time Billed (hr/min): 23 Billed Treatment Time 1 visit EVL 1 ADL 1 23 min ETHAN DEVRIES OT Jan 08, 2023 16:54
[2023-01-08 19:05] VITALS: BP 134/79
[2023-01-08] MEDS: AZITHROMYCIN 250 MG TAB (ZITHROMAX) PO SCH (20:07)
[2023-01-08] MEDS: AMITRIPTYLINE 150 MG (ELAVIL) TABLET PO SCH (20:08)
[2023-01-09] MEDS: methylPREDNISolone 40 MG/ML (Solu-MEDROL) VIAL IV SCH ×5 (00:02→23:54)
[2023-01-09 00:20] VITALS: BP 126/69
[2023-01-09] MEDS: RT-ALBUTEROL SULF 2.5 MG/3 ML PRE-MIX VIAL INH SCH ×4 (02:46→21:32)
[2023-01-09 04:03] VITALS: BP 129/64
[2023-01-09 05:43] LABS: BASOPHILS # (AUTO) 0.1 10^3/uL (0.0-0.1); BASOPHILS % (AUTO) 1 % (0-10); EOSINOPHILS % (AUTO) 0 % (0-10); HEMATOCRIT 36 % (40-54); HEMOGLOBIN 12.5 g/dL (13.3-17.7); LYMPHOCYTES # (AUTO) 0.6 10^3/uL (1.0-4.0); LYMPHOCYTES % (AUTO) 8 % (12-44); MEAN CORPUSCULAR HEMOGLOBIN 32 pg (25-34); MEAN CORPUSCULAR HGB CONC 35 g/dL (32-36); MEAN CORPUSCULAR VOLUME 91 fL (80-99); MEAN PLATELET VOLUME 10.9 fL (9.0-12.2); MONOCYTES # (AUTO) 0.3 10^3/uL (0.0-1.0); MONOCYTES % (AUTO) 4 % (0-12); NEUTROPHILS % (AUTO) 82 % (42-75); PLATELET COUNT 294 10^3/uL (130-400); WHITE BLOOD COUNT 7.4 10^3/uL (4.3-11.0)
[2023-01-09 06:02] LABS: SMEAR SCAN COMMENT YES
[2023-01-09 06:06] LABS: BILIRUBIN,TOTAL 0.4 MG/DL (0.1-1.0); CALCIUM 9.5 MG/DL (8.5-10.1); CREATININE SERUM 0.81 MG/DL (0.60-1.30); POTASSIUM 4.9 MMOL/L (3.6-5.0); TOTAL PROTEIN 6.8 GM/DL (6.4-8.2)
--- NOTE | 2023-01-09 07:33 | Progress Note - Hospitalist ---
Subjective HPI/CC On Admission Date Seen by Provider: Jan 09, 2023 Time Seen by Provider: 11:00 Mr. Linares says he is doing well today. He says he has no cp and does not have sob. He endorses cough and says it is worse when he takes a deep breath. He believes that part of his chest pain on presentation was due to a fall out of the bath tub a day prior, chest pain is reproducible with palpation on exam. Encourage taking deep breaths to use full lungs even though he complains of cough when he does this. Weaning off o2 today. Had BM yesterday as well. Subjective/Events-last exam No major changes Still on Vapotherm No falls No pain IV steroids maintained Review of Systems General: Fatigue, Malaise Pulmonary: Dyspnea, Cough Objective Exam Vital Signs Vital Signs Date Time Temp Pulse Resp B/P (MAP) Pulse Ox O2 Delivery O2 Flow Rate FiO2 01/09/23 19:27 96 01/09/23 19:15 36.8 20 123/70 (87) 97 Vapotherm 65.00 25.00 01/09/23 14:19 65 Capillary Refill : Less Than 3 Seconds General Appearance: No Apparent Distress, WD/WN, Chronically ill Respiratory: No Accessory Muscle Use, No Respiratory Distress, Decreased Breath Sounds Cardiovascular: Regular Rate, Rhythm Neurologic/Psychiatric: Alert, Oriented x3, No Motor/Sensory Deficits, Normal Mood/Affect Results/Procedures Lab Laboratory Tests 01/09/23 05:29 Patient resulted labs reviewed. Assessment/Plan Assessment and Plan Assess & Plan/Chief Complaint Pneumonia AHRF -cxr reviewed -satting 95% on HHFO2 -encouraged full lung use -wbc count trending down -on azithro and rocephin -still trying to wean off O2, still requiring HHF -Lungs with significan crackling on Left side -Endorses a lot of mucus clearing with dark yellow mucus in bedside cup -improving, monitor Chest Pain NSTEMI -mild trop elevation on presentation -ekg negative -cardiology on board SANDY -1.32 on admit, .87 now - resolved Microscopic hematuria -w/o urinary catheter -denies hx of smoking -will need outpatient uro f/u Anxiety -Xanax 1/2 tab prn dispo:Continue to wean off O2. Critical Care Critically Ill Patient Clinical Quality Measures DVT/VTE Risk/Contraindication: Contraindications-Mechi: Other *list below* Other: poss dvt LASHA SOLORZANO DO Jan 09, 2023 07:33
[2023-01-09 08:39] VITALS: BP 118/58
[2023-01-09] MEDS: meTOprolol TARTRATE 25 MG (LOPRESSOR) TABLET PO SCH ×2 (08:43→20:17)
[2023-01-09] MEDS: ASPIRIN E.C. 81 MG (ECOTRIN) TAB PO SCH (08:43)
[2023-01-09] MEDS: SENNOSIDES 8.6 MG (SENOKOT) TAB PO SCH ×2 (08:43→20:18)
[2023-01-09] MEDS: DOCUSATE SODIUM 100 MG (COLACE) CAP PO SCH ×2 (08:43→20:18)
[2023-01-09] MEDS: guaiFENesin (MUCINEX) 600 MG TAB PO SCH ×2 (08:43→20:18)
[2023-01-09] MEDS: ENOXAPARIN 40 MG/0.4 ML (LOVENOX) SYR SC SCH (08:44)
[2023-01-09 10:30] LABS: ABG BASE EXCESS 0.6 MMOL/L (-2.5-2.5); ABG OXYGEN SATURATION 98 % (94-100); ABG PCO2 41 MMHG (35-45); ABG PO2 85 MMHG (79-93); ABG TCO2 26.2 MMOL/L (21.0-31.0)
[2023-01-09 10:31] LABS: ALLENS TEST YES-POS; INSPIRED O2 25L/65%; PATIENT TEMP 36.6; VENTILATOR NO
--- NOTE | 2023-01-09 10:47 | Cardiology Progress Note ---
Subjective Date Seen by Provider: Jan 09, 2023 Time Seen by Provider: 10:45 Subjective/Events-last exam Patient was seen at bedside, laying down comfortably Still complaining of shortness of breath and cough Review of Systems General: No Chills, No Night Sweats; Fatigue; No Malaise, No Appetite, No Other HEENT: No Head Aches, No Visual Changes, No Eye Pain, No Ear Pain, No Dysphasia, No Sinus Congestion, No Post Nasal Drip, No Sore Throat, No Other Pulmonary: Dyspnea, Cough; No Pleuritic Chest Pain, No Other Cardiovascular: No: Chest Pain, Palpitations, Orthopnea, Paroxysmal Noc. Dyspnea, Edema, Lt Headedness, Other Objective-Cardiology Exam Last Set of Vital Signs Vital Signs 01/09/23 01/09/23 08:39 10:13 Temp 36.3 Pulse 87 Resp 18 B/P (MAP) 118/58 (78) Pulse Ox 92 O2 Delivery Vapotherm O2 Flow Rate 25.00 FiO2 65 I&O Intake and Output 01/09/23 00:00 Intake Total 2100 ml Output Total 3850 ml Balance -1750 ml Intake Oral 1900 ml IV Total 200 ml Output Urine Total 3850 ml # Bowel Movements 1 General: Alert, Oriented X3, Cooperative, No Acute Distress HEENT: Atraumatic, PERRLA, EOMI, Mucous Memb Moist/[place] Neck: Supple, No JVD Lungs: Other (Bilateral rhonchi) Heart: Regular Rate, Normal S1, Normal S2, No Murmurs Abdomen: Soft, No Tenderness Extremities: No Clubbing, No Cyanosis, No Edema, Normal Pulses Skin: No Rashes, No Significant Lesion Neuro: Normal Speech, Normal Tone, Sensation Intact Psych/Mental Status: Mental Status NL Results Lab Laboratory Tests 01/09/23 05:29 A/P-Cardiology Admission Diagnosis Acute respiratory failure Pneumonia Sepsis Hypotension Assessment/Plan Acute respiratory failure, maintained on Vapotherm. Managed by medical team Pneumonia, sepsis and pleurisy Receiving antibiotics, continue to monitor UTI, managed by medical team Hypotension, blood pressure is better. Continue to monitor Status post tachycardia, better, still hypoxemic on Vapotherm. Acute renal insufficiency, better. History of heavy alcohol use in the past, managed by medical team Diabetes mellitus. GUY COKER MD Jan 09, 2023 10:47
[2023-01-09] MEDS ORDERED: LORATADINE (CLARITIN) 10 MG TAB PO ONE (12:15)
[2023-01-09 12:29] VITALS: BP 112/65
--- NOTE | 2023-01-09 14:49 | Physical Therapy Daily Note ---
PT Daily Note-Current Subjective Pt is in bed on arrival, and agreeable to walk with PT. Pain Numeric Pain Scale: 0-No Pain Section J - Health Conditions 1. Rarely or not at all 2. Occasionally 3. Frequently 4. Almost constantly 8. Unable to answer Pain Effect on Sleep: 1 Pain Interference with Therapy: 1 Pain Interference w/Day-to-Day: 1 Mental Status Attachments: Oxygen Transfers SCALE: Activities may be completed with or without assistive devices. 5-Ckojeuupyu-hlgafej completes the activity by him/herself with no assistance from a helper. 5-Set-up or Clean-up Assistance-helper sets up or cleans up; patient completes activity. [place] assists only prior to or following the activity. 4-Supervision or Touching Assistance-helper provides verbal cues and/or touching/steadying and/or contact guard assistance as patient completes activity. Assistance may be provided throughout the activity or intermittently. 3-Partial/Moderate Assistance-helper does LESS THAN HALF the effort. [place] lifts, holds or supports trunk or limbs, but provides less than half the effort. 2-Substantial/Maximal Assistance-helper does MORE THAN HALF the effort. [place] lifts or holds trunk or limbs and provides more than half the effort. 9-Ittsgtfzq-tgpior does ALL the effort. Patient does none of the effort to complete the activity. Or, the assistance of 2 or more helpers is required for the patient to complete the activity. If activity was not attempted, code reason: 7-Patient Refused. 9-Not Applicable-not attempted and the patient did not perform the activity befo re the current illness, exacerbation or injury. 10-Not Attempted due to Environmental Limitations-(lack of equipment, weather re straints, etc.). 88-Not Attempted due to Medical Conditions or Safety Concerns. Roll Left & Right (QC): 6 Sit to Lying (QC): 6 Lying to Sitting/Side of Bed(Q: 6 Sit to Stand (QC): 6 Chair/Btd-ec-Njelv Xfer(QC): 6 Weight Bearing Right Lower Extremity: Right Full Weight Bearing Left Lower Extremity: Left Full Weight Bearing Gait Training Does the Patient Walk?: Yes Distance: 300ft Walk 10 feet (QC): 6 Walk 50 ft with 2 Turns(QC): 6 Walk 150 ft (QC): 6 Gait Assistive Device: None Pt requested to walk and pull the oxygen tank. Pt stated he wanted practice for when he returned home. Wheelchair Training Does the Pt Use a Wheelchair?: No Assessment Current Status: Good Progress No shortness of breath or fatigue observed. Pt seated edge of bed after treatment. 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 Goals PT Senior Care Goals Time Frame: Feb 05, 2023 Roll Left & Right (QC): 6 Sit to Lying (QC): 6 Lying-Sitting on Side/Bed(QC): 6 Sit to Stand (QC): 6 Chair/Qsh-xo-Mrvxs Xfer(QC): 6 Does the Patient Walk: Yes Walk 10 feet (QC): 6 Walk 50ft with 2 Turns (QC): 6 Walk 150 ft (QC): 6 1 Step (curb) (QC): 6 4 Steps (QC): 6 12 Steps (QC): 6 PT Plan Treatment/Plan Treatment Plan: Continue Plan of Care Treatment Plan: Bed Mobility, Education, Functional Activity Atif, Functional Strength, Group Therapy, Gait, Safety, Therapeutic Exercise, Transfers Treatment Duration: Feb 05, 2023 Frequency: 6 times per week Estimated Hrs Per Day: .25 hour per day Patient and/or Family Agrees t: Yes Time Time In: 939 Time Out: 954 DATE: Jan 09, 2023 Total Billed Treatment Time: 15 Total Billed Treatment 1, gt 15 ARMINDA MO PT Jan 09, 2023 14:49
[2023-01-09 15:36] VITALS: BP 114/63
[2023-01-09] MEDS: ACETAMINOPHEN 325 MG TABLET PO PRN (17:34)
[2023-01-09 19:15] VITALS: BP 123/70
[2023-01-09] MEDS: MONTELUKAST 10 MG (SINGULAIR) TAB PO SCH (20:18)
[2023-01-09] MEDS: AMITRIPTYLINE 150 MG (ELAVIL) TABLET PO SCH (20:18)
[2023-01-09] MEDS: RT--FLUTICASONE/SALMETEROL 113-14 (AIRDUO RespiCLICK) IH SCH (21:55)
[2023-01-10] VITALS (7 sets, daily range): BP systolic 121–138; BP diastolic 57–78
[2023-01-10] MEDS: RT-ALBUTEROL SULF 2.5 MG/3 ML PRE-MIX VIAL INH SCH ×4 (02:23→21:16)
[2023-01-10] MEDS: methylPREDNISolone 40 MG/ML (Solu-MEDROL) VIAL IV SCH ×4 (05:46→23:13)
[2023-01-10 05:49] LABS: BASOPHILS % (AUTO) 0 % (0-10); EOSINOPHILS % (AUTO) 0 % (0-10); HEMATOCRIT 36 % (40-54); LYMPHOCYTES # (AUTO) 0.7 10^3/uL (1.0-4.0); LYMPHOCYTES % (AUTO) 8 % (12-44); MEAN CORPUSCULAR HEMOGLOBIN 31 pg (25-34); MEAN CORPUSCULAR HGB CONC 34 g/dL (32-36); MEAN CORPUSCULAR VOLUME 92 fL (80-99); MEAN PLATELET VOLUME 10.6 fL (9.0-12.2); MONOCYTES # (AUTO) 0.5 10^3/uL (0.0-1.0); MONOCYTES % (AUTO) 5 % (0-12); NEUTROPHILS # (AUTO) 7.6 10^3/uL (1.8-7.8); NEUTROPHILS % (AUTO) 81 % (42-75); PLATELET COUNT 286 10^3/uL (130-400); WHITE BLOOD COUNT 9.4 10^3/uL (4.3-11.0)
[2023-01-10 06:07] LABS: ALBUMIN 3.1 GM/DL (3.2-4.5); BILIRUBIN,TOTAL 0.4 MG/DL (0.1-1.0); CALCIUM 9.3 MG/DL (8.5-10.1); CREATININE SERUM 0.92 MG/DL (0.60-1.30); POTASSIUM 4.8 MMOL/L (3.6-5.0); TOTAL PROTEIN 6.7 GM/DL (6.4-8.2)
[2023-01-10 06:18] LABS: LYMPHOCYTES % (MANUAL) 6 %; MONOCYTES % (MANUAL) 9 %; NEUTROPHILS % (MANUAL) 85 %; RBC MORPH NORMAL
--- NOTE | 2023-01-10 07:09 | Progress Note - Hospitalist ---
Subjective HPI/CC On Admission Date Seen by Provider: Jan 10, 2023 Time Seen by Provider: 11:00 Mr. Linares says he is doing well today. He says he has no cp and does not have sob. He endorses cough and says it is worse when he takes a deep breath. He believes that part of his chest pain on presentation was due to a fall out of the bath tub a day prior, chest pain is reproducible with palpation on exam. Encourage taking deep breaths to use full lungs even though he complains of cough when he does this. Weaning off o2 today. Had BM yesterday as well. Subjective/Events-last exam Working on weaning Vapotherm No med issues Labs reviewed Cough is still present Review of Systems Pulmonary: Dyspnea, Cough Objective Exam Vital Signs Vital Signs Date Time Temp Pulse Resp B/P (MAP) Pulse Ox O2 Delivery O2 Flow Rate FiO2 01/10/23 12:32 81 01/10/23 11:50 36.9 20 126/70 (88) 92 Vapotherm 55.00 15.00 01/10/23 11:01 55 Capillary Refill : Less Than 3 Seconds General Appearance: Anxious, Chronically ill, Mild Distress Respiratory: No Accessory Muscle Use, No Respiratory Distress, Decreased Breath Sounds Cardiovascular: Regular Rate, Rhythm Neurologic/Psychiatric: Alert, Oriented x3, No Motor/Sensory Deficits, Normal Mood/Affect Results/Procedures Lab Laboratory Tests 01/10/23 05:09 Patient resulted labs reviewed. Assessment/Plan Assessment and Plan Assess & Plan/Chief Complaint Pneumonia AHRF -cxr reviewed -satting 95% on HHFO2 -encouraged full lung use -wbc count trending down -on azithro and rocephin -still trying to wean off O2, still requiring HHF -Lungs with significan crackling on Left side -Endorses a lot of mucus clearing with dark yellow mucus in bedside cup -improving, monitor Chest Pain NSTEMI -mild trop elevation on presentation -ekg negative -cardiology on board SANDY -1.32 on admit, .87 now - resolved Microscopic hematuria -w/o urinary catheter -denies hx of smoking -will need outpatient uro f/u Anxiety -Xanax 1/2 tab prn dispo:Continue to wean off O2. Critical Care Critically Ill Patient Clinical Quality Measures DVT/VTE Risk/Contraindication: Contraindications-Mechi: Other *list below* Other: poss dvt LASHA SOLORZANO DO Jan 10, 2023 07:09
[2023-01-10] MEDS: RT--FLUTICASONE/SALMETEROL 113-14 (AIRDUO RespiCLICK) IH SCH ×2 (08:15→21:17)
[2023-01-10] MEDS: SENNOSIDES 8.6 MG (SENOKOT) TAB PO SCH ×2 (08:17→20:43)
[2023-01-10] MEDS: ENOXAPARIN 40 MG/0.4 ML (LOVENOX) SYR SC SCH (08:17)
[2023-01-10] MEDS: LORATADINE (CLARITIN) 10 MG TAB PO SCH (08:17)
[2023-01-10] MEDS: DOCUSATE SODIUM 100 MG (COLACE) CAP PO SCH ×2 (08:17→20:43)
[2023-01-10] MEDS: guaiFENesin (MUCINEX) 600 MG TAB PO SCH ×2 (08:17→20:43)
[2023-01-10] MEDS: meTOprolol TARTRATE 25 MG (LOPRESSOR) TABLET PO SCH ×2 (08:17→20:44)
[2023-01-10] MEDS: ASPIRIN E.C. 81 MG (ECOTRIN) TAB PO SCH (08:17)
[2023-01-10 08:33] LABS: ABG BASE EXCESS 2.7 MMOL/L (-2.5-2.5); ABG OXYGEN SATURATION 93 % (94-100); ABG PCO2 41 MMHG (35-45); ABG PH 7.43 (7.37-7.43); ABG PO2 58 MMHG (79-93); ABG TCO2 28.1 MMOL/L (21.0-31.0)
[2023-01-10 08:35] LABS: ALLENS TEST YES-POS; INSPIRED O2 20L; PATIENT TEMP 36.3; VENTILATOR NO
--- NOTE | 2023-01-10 11:04 | Cardiology Progress Note ---
Subjective Date Seen by Provider: Jan 10, 2023 Time Seen by Provider: 11:03 Subjective/Events-last exam Patient was seen at bedside, laying down comfortably, anxious and requesting to take Xanax Review of Systems General: No Chills, No Night Sweats, No Fatigue, No Malaise, No Appetite, No O ther HEENT: No Head Aches, No Visual Changes, No Eye Pain, No Ear Pain, No Dys phasia, No Sinus Congestion, No Post Nasal Drip, No Sore Throat, No Other Pulmonary: Dyspnea; No Cough, No Pleuritic Chest Pain, No Other Cardiovascular: No: Chest Pain, Palpitations, Orthopnea, Paroxysmal Noc. Dyspnea, Edema, Lt Headedness, Other Objective-Cardiology Exam Last Set of Vital Signs Vital Signs 01/10/23 01/10/23 01/10/23 07:28 08:17 08:23 Temp 36.6 Pulse 82 Resp 18 B/P (MAP) 136/78 (97) Pulse Ox 93 O2 Delivery Vapotherm O2 Flow Rate 20.00 FiO2 55 I&O Intake and Output 01/10/23 00:00 Intake Total 1910 ml Output Total 1450 ml Balance 460 ml Intake Oral 1910 ml Output Urine Total 1450 ml # Voids 1 # Bowel Movements 2 General: Alert, Oriented X3, Cooperative, No Acute Distress HEENT: Atraumatic, PERRLA, EOMI, Mucous Memb Moist/[place] Neck: Supple, No JVD Lungs: Other (Bilateral rhonchi) Heart: Regular Rate, Normal S1, Normal S2, No Murmurs Abdomen: Soft, No Tenderness Extremities: No Clubbing, No Cyanosis, No Edema, Normal Pulses Skin: No Rashes, No Significant Lesion Neuro: Normal Speech, Normal Tone, Sensation Intact Psych/Mental Status: Mental Status NL Results Lab Laboratory Tests 01/10/23 05:09 A/P-Cardiology Admission Diagnosis Acute respiratory failure Pneumonia Sepsis Hypotension Assessment/Plan Acute respiratory failure, maintained on Vapotherm. Managed by medical team Pneumonia, sepsis and pleurisy Receiving antibiotics, continue to monitor UTI, managed by medical team Hypotension, blood pressure is better. Continue to monitor Status post tachycardia, better, still hypoxemic on Vapotherm. Acute renal insufficiency, better. History of heavy alcohol use in the past, managed by medical team Diabetes mellitus. GUY COKER MD Jan 10, 2023 11:04
[2023-01-10] MEDS: ACETAMINOPHEN 325 MG TABLET PO PRN (11:29)
[2023-01-10] MEDS: MONTELUKAST 10 MG (SINGULAIR) TAB PO SCH (20:43)
[2023-01-10] MEDS: AMITRIPTYLINE 150 MG (ELAVIL) TABLET PO SCH (20:43)
[2023-01-11] MEDS: RT-ALBUTEROL SULF 2.5 MG/3 ML PRE-MIX VIAL INH SCH ×2 (03:06→08:14)
[2023-01-11 03:34] VITALS: BP 114/58
[2023-01-11] MEDS: methylPREDNISolone 40 MG/ML (Solu-MEDROL) VIAL IV SCH ×2 (05:27→12:05)
[2023-01-11 05:56] LABS: BASOPHILS # (AUTO) 0.1 10^3/uL (0.0-0.1); BASOPHILS % (AUTO) 1 % (0-10); EOSINOPHILS % (AUTO) 0 % (0-10); HEMATOCRIT 38 % (40-54); HEMOGLOBIN 12.8 g/dL (13.3-17.7); LYMPHOCYTES # (AUTO) 0.9 10^3/uL (1.0-4.0); LYMPHOCYTES % (AUTO) 9 % (12-44); MEAN CORPUSCULAR HEMOGLOBIN 31 pg (25-34); MEAN CORPUSCULAR HGB CONC 34 g/dL (32-36); MEAN CORPUSCULAR VOLUME 92 fL (80-99); MEAN PLATELET VOLUME 10.3 fL (9.0-12.2); MONOCYTES # (AUTO) 0.5 10^3/uL (0.0-1.0); MONOCYTES % (AUTO) 5 % (0-12); NEUTROPHILS # (AUTO) 7.4 10^3/uL (1.8-7.8); NEUTROPHILS % (AUTO) 78 % (42-75); PLATELET COUNT 372 10^3/uL (130-400); WHITE BLOOD COUNT 9.5 10^3/uL (4.3-11.0)
[2023-01-11 06:15] LABS: ALBUMIN 3.2 GM/DL (3.2-4.5); BILIRUBIN,TOTAL 0.4 MG/DL (0.1-1.0); CALCIUM 9.4 MG/DL (8.5-10.1); CREATININE SERUM 1.03 MG/DL (0.60-1.30); POTASSIUM 4.5 MMOL/L (3.6-5.0); TOTAL PROTEIN 6.9 GM/DL (6.4-8.2)
[2023-01-11 07:49] VITALS: BP 111/60
[2023-01-11] MEDS: RT--FLUTICASONE/SALMETEROL 113-14 (AIRDUO RespiCLICK) IH SCH (08:14)
[2023-01-11] MEDS: DOCUSATE SODIUM 100 MG (COLACE) CAP PO SCH (08:54)
[2023-01-11] MEDS: meTOprolol TARTRATE 25 MG (LOPRESSOR) TABLET PO SCH (08:54)
[2023-01-11] MEDS: ENOXAPARIN 40 MG/0.4 ML (LOVENOX) SYR SC SCH (08:54)
[2023-01-11] MEDS: ASPIRIN E.C. 81 MG (ECOTRIN) TAB PO SCH (08:54)
[2023-01-11] MEDS: guaiFENesin (MUCINEX) 600 MG TAB PO SCH (08:54)
[2023-01-11] MEDS: LORATADINE (CLARITIN) 10 MG TAB PO SCH (08:54)
[2023-01-11] MEDS: SENNOSIDES 8.6 MG (SENOKOT) TAB PO SCH (08:54)
[2023-01-11] MEDS ORDERED: MONT-40 PO (10:39)
[2023-01-11] MEDS ORDERED: NITR0.4T42 SL (10:39)
[2023-01-11] MEDS ORDERED: METO-333 PO (10:39)
[2023-01-11] MEDS ORDERED: OXC5T PO (10:39)
[2023-01-11] MEDS ORDERED: ASPI-1238 PO (10:39)
[2023-01-11] MEDS ORDERED: AMIT150T PO (10:39)
[2023-01-11] MEDS ORDERED: ALBU2.5V4 INH (10:39)
[2023-01-11] MEDS ORDERED: ALPR1TAB7 PO (10:39)
[2023-01-11] MEDS ORDERED: GUAI5SYR PO (10:39)
[2023-01-11] MEDS ORDERED: PRED10TA22 PO (10:39)
[2023-01-11] MEDS ORDERED: GUAI600T43 PO (10:39)
--- NOTE | 2023-01-11 10:42 | Discharge Summary ---
Discharge Summary Hospital Course Was the Problem List Reviewed?: Yes Problems/Dx: (1) Hypoxia Status: Acute (2) Sepsis Status: Acute Qualifiers: (3) Pneumonia Status: Acute Qualifiers: (4) NSTEMI (non-ST elevated myocardial infarction) Status: Acute (5) SANDY (acute kidney injury) Status: Resolved Hospital Course Date of Admission: Jan 03, 2023 at 22:17 Admission Diagnosis : Family Physician/Provider: [facility] Date of Discharge: 01/11/23 Discharge Diagnosis: [ ] Hospital Course: Edgard Linares is a 72 M w/o significant PMHx who presented on 01/03/23 with chest pain, cough productive of thick yellow sputum, and shortness of breath. He was found to have a mild troponin elevation diagnosed as an NSTEMI, had a pneumonia on CXR, and an SANDY. He was admitted to the ICU for management where he was placed on vapotherm and received antibiotics. An echocardiography showed a LVEF of 50-55%. During his stay he had continued o2 requirements despite not requiring baseline O2, and after completing a full course of abx. Additionally, a UA revealed microscopic hematuria despite not having a urinary catheter and despite denying a hx of smoking. On the last day of his stay he was satting in the 90s on 2L of o2 but requested to leave on home o2 so he could go to the bank and send money to his girlfriend who was "stuck in [place]." YUNI NEWMAN Jan 11, 2023 11:39 Labs and Pending Lab Test: Laboratory Tests 01/11/23 05:10: White Blood Count 9.5, Red Blood Count 4.11L, Hemoglobin 12.8L, Hematocrit 38L, Mean Corpuscular Volume 92, Mean Corpuscular Hemoglobin 31, Mean Corpuscular Hemoglobin Concent 34, Red Cell Distribution Width 12.9, Platelet Count 372, Mean Platelet Volume 10.3, Immature Granulocyte % (Auto) 7, Neutrophils (%) (Auto) 78H, Lymphocytes (%) (Auto) 9L, Monocytes (%) (Auto) 5, Eosinophils (%) (Auto) 0, Basophils (%) (Auto) 1, Neutrophils # (Auto) 7.4, Lymphocytes # (Auto) 0.9L, Monocytes # (Auto) 0.5, Eosinophils # (Auto) 0.0, Basophils # (Auto) 0.1, Immature Granulocyte # (Auto) 0.7H, Sodium Level 138, Potassium Level 4.5, Chloride Level 104, Carbon Dioxide Level 24, Anion Gap 10, Blood Urea Nitrogen 23H, Creatinine 1.03, Estimat Glomerular Filtration Rate 78, BUN/Creatinine Ratio 22, Glucose Level 144H, Calcium Level 9.4, Corrected Calcium 10.0, Magnesium Level 2.0, Total Bilirubin 0.4, Aspartate Amino Transf (AST/SGOT) 27, Alanine Aminotransferase (ALT/SGPT) 56H, Alkaline Phosphatase 85, Total Protein 6.9, Albumin 3.2 Microbiology 01/04/23 Blood Culture - Final, Complete No growth 01/04/23 Urine Culture - Final, Complete NO GROWTH 01/03/23 MRSA Screen - Final, Complete MRSA not isolated Home Meds Active Prednisone 10 Mg Tab.ds.pk 10 Mg PO DAILY Take 6 tabs(60mg)daily,decrease by 1 tab(10mg)every other day. Mucinex (Guaifenesin) 600 Mg Tab.er.12h 600 Mg PO BID Montelukast Sodium 10 Mg Tablet 10 Mg PO HS Guaifenesin Dm Syrup (Guaifenesin/Dextromethorphan) 100 Mg-10 Mg/5 Ml Syrup 10 Ml PO Q4H PRN Alprazolam 1 Mg Tablet 0.5 Mg PO BID PRN Oxyir Tablet (Oxycodone HCl) 5 Mg Tab 5 Mg PO Q4H PRN Aspirin EC (Aspirin) 81 Mg Tablet.dr 81 Mg PO DAILY Metoprolol Tartrate 25 Mg Tablet 12.5 Mg PO BID Nitroglycerin 0.4 Mg Tab.subl 0.4 Mg SL UD PRN Albuterol Sulfate 2.5 Mg/3 Ml (0.083 %) Vial.neb 2.5 Mg INH RTQ4HR PRN Amitriptyline HCl 150 Mg Tablet 150 Mg PO HS Assessment/Pt Instructions pcp 1 week Discharge Planning: <30 minutes discharge planning Discharge Instructions Discharge Diet: No Restrictions Discharge Physical Examination Vital Signs Vital Signs Date Time Temp Pulse Resp B/P (MAP) Pulse Ox O2 Delivery O2 Flow Rate FiO2 01/11/23 08:20 90 01/11/23 08:17 92 High Flow N/C 2.00 01/11/23 07:49 36.4 22 111/60 (77) 01/10/23 14:29 55 General Appearance: No Apparent Distress, WD/WN, Chronically ill Respiratory: Normal Breath Sounds, Decreased Breath Sounds Allergies: Coded Allergies: No Known Drug Allergies (Unverified , 10/18/10) Discharge Summary Date of Admission Jan 03, 2023 at 22:17 Date of Discharge Discharge Date: Jan 11, 2023 Discharge Diagnosis Pneumonia AHRF -cxr reviewed -satting 95% on HHFO2 -encouraged full lung use -wbc count trending down -on azithro and rocephin -still trying to wean off O2, still requiring HHF -Lungs with significan crackling on Left side -Endorses a lot of mucus clearing with dark yellow mucus in bedside cup -improving, monitor Chest Pain NSTEMI -mild trop elevation on presentation -ekg negative -cardiology on board SANDY -1.32 on admit, .87 now - resolved Microscopic hematuria -w/o urinary catheter -denies hx of smoking -will need outpatient uro f/u Anxiety -Xanax 1/2 tab prn dispo:Continue to wean off O2. Clinical Quality Measures DVT/VTE Risk/Contraindication: Contraindications-Mechi: Other *list below* Other: poss dvt LASHA SOLORZANO DO Jan 11, 2023 10:42
--- NOTE | 2023-01-11 10:44 | Physical Therapy Progress Note ---
Therapy Progress Note Patient is up independently and will dismiss to home on this date per RN. PT to dismiss patient from services at this time. JAREN MUÑOZ PT Jan 11, 2023 10:44
--- NOTE | 2023-01-11 11:39 | Progress Note ---
YUNI NEWMAN 01/11/23 1139: Progress Note Edgard Linares is a 72 M w/o significant PMHx who presented on 01/03/23 with chest pain, cough productive of thick yellow sputum, and shortness of breath. He was found to have a mild troponin elevation diagnosed as an NSTEMI, had a pneumonia on CXR, and an SANDY. He was admitted to the ICU for management where he was placed on vapotherm and received antibiotics. An echocardiography showed a LVEF of 50-55%. During his stay he had continued o2 requirements despite not requiring baseline O2, and after completing a full course of abx. Additionally, a UA revealed microscopic hematuria despite not having a urinary catheter and despite denying a hx of smoking. On the last day of his stay he was satting in the 90s on 2L of o2 but requested to leave on home o2 so he could go to the bank and send money to his girlfriend who was "stuck in [place]." AUDREY SOLORZANO DO 01/12/23 0444: Supervisory-Addendum Brief Verification & Attestation Participated in pt care: history, MDM, physical Personally performed: exam, history, MDM, supervision of care Care discussed with: Medical Student Procedures: n/a Results interpretation: Verified all documentation Verification and Attestation of Medical Student E/M Service A medical student performed and documented this service in my presence. I reviewed and verified all information documented by the medical student and made modifications to such information, when appropriate. I personally performed the physical exam and medical decision making. Audrey Solorzano Jan 12, 2023,04:44 YUNI NEWMAN Jan 11, 2023 11:39 AUDREY SOLORZANO DO Jan 12, 2023 04:44
[2023-01-11 11:57] VITALS: BP 122/62
--- NOTE | 2023-01-11 13:02 | Progress Note - Cardiology ---
Cardiology SOAP Progress Note Subjective: Gen weakness Shortness of breath still present with activity No cp or palp or syncope No swelling No n/v/d Objective: I&O/Vital Signs 01/11/23 01/11/23 01/11/23 01/11/23 03:06 03:34 07:49 08:00 Temp 37.1 36.4 Pulse 71 99 Resp 18 22 B/P (MAP) 114/58 (76) 111/60 (77) Pulse Ox 95 94 90 O2 Delivery High Flow N/C High Flow N/C Room Air High Flow N/C O2 Flow Rate 4.00 4.00 2.00 01/11/23 01/11/23 01/11/23 01/11/23 08:16 08:17 08:20 11:57 Temp 36.8 Pulse 90 83 Resp 16 B/P (MAP) 122/62 (82) Pulse Ox 92 92 94 O2 Delivery High Flow N/C High Flow N/C Nasal Cannula O2 Flow Rate 2.00 2.00 2.00 01/11/23 12:25 Pulse 103 01/11/23 00:00 Intake Total 2102 ml Output Total 1550 ml Balance 552 ml Weight (Pounds): 172 Weight (Ounces): 7.0 Weight (Calculated Kilograms): [id number] Constitutional: AAO x 3, well-developed, well-nourished Respiratory: chest expansion is symmetric, chest is bilaterally symmetric, rhonchi (scattered), other (diminished throughout with coarse breath sounds) Cardiovascular: No JVD; tachycardia, S1 and S2 Gastrointestional: No tender; soft, round, audible bowel sounds Extremities: no lower extremity edema bilateral Neurologic/Psychiatric: oriented x 3, other (moves all limbs equally) Skin: No rash on exposed areas, No ulcerations on exposed areas Results/Procedures: Labs Laboratory Tests 01/11/23 05:10: White Blood Count 9.5, Red Blood Count 4.11L, Hemoglobin 12.8L, Hematocrit 38L, Mean Corpuscular Volume 92, Mean Corpuscular Hemoglobin 31, Mean Corpuscular Hemoglobin Concent 34, Red Cell Distribution Width 12.9, Platelet Count 372, Mean Platelet Volume 10.3, Immature Granulocyte % (Auto) 7, Neutrophils (%) (Auto) 78H, Lymphocytes (%) (Auto) 9L, Monocytes (%) (Auto) 5, Eosinophils (%) (Auto) 0, Basophils (%) (Auto) 1, Neutrophils # (Auto) 7.4, Lymphocytes # (Auto) 0.9L, Monocytes # (Auto) 0.5, Eosinophils # (Auto) 0.0, Basophils # (Auto) 0.1, Immature Granulocyte # (Auto) 0.7H, Sodium Level 138, Potassium Level 4.5, Chloride Level 104, Carbon Dioxide Level 24, Anion Gap 10, Blood Urea Nitrogen 23H, Creatinine 1.03, Estimat Glomerular Filtration Rate 78, BUN/Creatinine Ratio 22, Glucose Level 144H, Calcium Level 9.4, Corrected Calcium 10.0, Magnesium Level 2.0, Total Bilirubin 0.4, Aspartate Amino Transf (AST/SGOT) 27, Alanine Aminotransferase (ALT/SGPT) 56H, Alkaline Phosphatase 85, Total Protein 6.9, Albumin 3.2 Microbiology 01/04/23 Blood Culture - Final, Complete No growth 01/04/23 Urine Culture - Final, Complete NO GROWTH 01/03/23 MRSA Screen - Final, Complete MRSA not isolated Laboratory Tests 01/10/23 05:09 01/11/23 05:10 A/P: Assessment: Pneumonia with sepsis and pleurisy - slowly improving Type 2 TX secondary to sepsis/hypoxia - Echo on 01/04/23: LVEF 50-55%, PASP 25-30 mmHg UTI - management per medical services Hypotension - likely secondary to sepsis - improved Tachycardia - likely d/t sepsis/pneumonia - improving SANDY - likely secondary to hypotension/sepsis - continues to improve ? microscopic hematuria - management per medical services Reports h/o heavy ETOH usage in the past - reports occ usage Hypo-magnesium - resolved Mild thrombocytopenia - undetermined etiology - now resolved Plan: * Continue ASA and beta-ayaan * Monitor labs closely JOAN ALEJANDRO MD [facility] Jan 11, 2023 13:02
== END 2023-01-11 12:35 | disposition home or self-care (01) | DRG 871 ==
LOC: EDUNIT# 19:30 → ER 19:31 → ICU 22:17 → ER 22:18 → CSD 01-07 10:24 → 4TH 01-08 15:09
PROVIDERS: ADMIT Internal Medicine; ATTEND Internal Medicine
PROC: 5A09357 Assistance with Respiratory Ventilation, Less than 24 Consecutive Hours, Continuous Positive Airway Pressure (ICD-10-PCS; principal; 2023-01-04)
PROC: 5A0935A Assistance with Respiratory Ventilation, Less than 24 Consecutive Hours, High Flow/Velocity Cannula (ICD-10-PCS; 2023-01-10)
DX: A41.9 Sepsis, unspecified organism (principal); I21.A1 Myocardial infarction type 2; J18.9 Pneumonia, unspecified organism; J96.01 Acute respiratory failure with hypoxia; N17.9 Acute kidney failure, unspecified; N39.0 Urinary tract infection, site not specified; F41.9 Anxiety disorder, unspecified; G47.00 Insomnia, unspecified; Z20.822 Contact with and (suspected) exposure to COVID-19; E86.0 Dehydration; D69.6 Thrombocytopenia, unspecified; D64.9 Anemia, unspecified; R31.29 Other microscopic hematuria; I95.9 Hypotension, unspecified; E11.65 Type 2 diabetes mellitus with hyperglycemia; E83.42 Hypomagnesemia
CPT/HCPCS: 36415; 36600; 71045; 80053; 80061; 81000; 82550; 82805; 82947; 83036; 83605; 83735; 83874; 83880; 84100; 84484; 85007; 85025; 85027; 85379; 85610; 85730; 86141; 87040; 87070; 87077; 87081; 87088; 87184; 87205; 87449; 87636; 93005; 93041; 93306; 94640; 94660; 94760; 94761; 96365; 96367; 96372

== ENCOUNTER → 2023-05-14 | Outpatient (CLI) | payer MEDICARE, MEDICAID ==
[~2023-05-14] MED LIST changes: +ALBU2.5V4 INH; +ALPR1TAB7 PO; +ASPI-1238 PO; +GADOTERATE 0.5 MMOL/ML (CLARISCAN) 20 ML VIAL IV ONE; +GUAI5SYR PO; +GUAI600T43 PO; +METO-333 PO; +MONT-40 PO; +NITR0.4T42 SL; +OXC5T PO; +PRED10TA22 PO
--- NOTE | 2023-05-14 16:34 | Diagnostic Imaging Report ---
PROCEDURE: MR imaging of the brain with and without contrast. TECHNIQUE: Multiplanar, multisequence MR imaging of the brain was performed with and without contrast. INDICATION: Memory difficulties. Findings: Chronic lacunar infarct within the right cerebellar hemisphere. No acute infarct. No acute or chronic hemorrhage. The ventricles are normal in size and configuration without hydrocephalus. Moderate scattered FLAIR hyperintensities in the subcortical and periventricular deep white matter, a nonspecific finding, most commonly seen with chronic small vessel ischemic disease. No abnormal enhancement. The scalp and calvarium are normal. The pituitary and sella are normal. No Chiari malformation. The visualized upper cervical spine is normal. The visualized orbits and globes are normal. The visualized paranasal sinuses are clear. The mastoid air cells are clear. Normal flow voids within the vertebral, basilar, and internal carotid arteries indicating patency. IMPRESSION: 1. No acute infarct or hemorrhage. 2. No mass or abnormal enhancement. 3. Moderate chronic small vessel ischemic disease. Mild global volume loss. Dictated by: Dictated on workstation # [id number]
== END ==
LOC: RAD 14:45
PROVIDERS: ATTEND Nurse Practitioner Family
DX: I67.9 Cerebrovascular disease, unspecified (principal); I25.2 Old myocardial infarction
CPT/HCPCS: 70553